=== PATIENT | male | born 1970 | race Caucasian/White ===

== ENCOUNTER 2016-07-18 05:35 | Day surgery (SDC) | payer OTHER, BC ==
[2016-07-18 06:07] VITALS: BMI 41.6
[2016-07-18 07:46] VITALS: PULSE 92; TEMP 98.2
[2016-07-18 08:08] VITALS: BP 130/79
[2016-07-18] MEDS ORDERED: ONDANSETRON 4 MG/2 ML VIAL IVPUSH PRN ×2 (08:38→10:04)
[2016-07-18] MEDS ORDERED: LACTATED RINGERS SOLUTION 1,000 ML IV SCH (09:00)
[2016-07-18] MEDS ORDERED: PROMETHAZINE HCL 25 MG/1 ML VIAL IVPUSH PRN (10:04)
== END 2016-07-18 08:05 | disposition home or self-care (01) ==
LOC: FECT 05:35
PROVIDERS: ATTEND Psychiatry & Neurology Psychiatry
PROC: GZB4ZZZ Other Electroconvulsive Therapy (ICD-10-PCS; principal; 2016-07-18 07:15)
DX: F31.62 Bipolar disorder, current episode mixed, moderate (principal)
CPT/HCPCS: 90870; 94760

== ENCOUNTER 2016-07-30 05:36 | Day surgery (SDC) | payer OTHER, BC ==
[2016-07-30 05:50] VITALS: BMI 41.1
[2016-07-30 07:42] VITALS: TEMP 98.1
[2016-07-30 08:03] VITALS: BP 117/74; PULSE 81
[2016-07-30] MEDS ORDERED: LACTATED RINGERS SOLUTION 1,000 ML IV SCH (08:15)
== END 2016-07-30 08:21 | disposition home or self-care (01) ==
LOC: FECT 05:36
PROVIDERS: ATTEND Psychiatry & Neurology Psychiatry
PROC: GZB4ZZZ Other Electroconvulsive Therapy (ICD-10-PCS; principal; 2016-07-30 07:30)
DX: F31.62 Bipolar disorder, current episode mixed, moderate (principal)
CPT/HCPCS: 90870; 94760

== ENCOUNTER 2016-08-13 05:36 | Day surgery (SDC) | payer OTHER, BC ==
--- NOTE | 2016-08-13 06:59 | HP ---
Admitting History and Physical - Admission History of Present Illness: patient is a 45 y/o male with a past medical history of MILI, HTN, and bipolar disorder. Patient presents for ECT, his last ECT was 07/30/16. Patient reports feeling well, reports an improvement in symptoms since starting ECT. He reports following portion control in his diet and has lost 4lbs. patient denies any recent illness or hospitalizations. He reports compliance with prescribed medication. History Source: Patient - Past Medical History Cardiovascular: Yes: HTN. No: AFIB, Aneurysm, Aortic Insufficiency, Aortic Stenosis, CAD, CHF, Deep Vein Thrombosis, Hyperlipdemia, [place], Mitral Insufficiency, Mitral Stenosis, Murmur, Pulmonary Hypertension, Other Pulmonary: Yes: Sleep Apnea, Other. No: Asthma, Bronchitis, Cancer, COPD, O2 Dependent, Pneumonia, Previously Intubated, Pulmonary Embolus, Pulmonary Fibrosis Psych: Yes: Bipolar, Depression. No: Addictions, Anxiety, Panic, Psychosis, Schizophrenia, Other - Smoking History Smoking history: Never smoked Have you smoked in the past 12 months: No - Alcohol/Substance Use Hx Alcohol Use: No History of Substance Use: reports: None - Social History ADL: Independent Occupation: [employer] History of Recent Travel: No Home Medications - Allergies Allergies/Adverse Reactions: Allergies Allergy/AdvReac Type Severity Reaction Status Date / Time No Known Allergies Allergy Verified 02/08/16 11:03 - Home Medications Home Medications: Ambulatory Orders Amlodipine Besylate [Norvasc -] 10 mg PO DAILY 11/16/12 Aspirin [ASA -] 81 mg PO HS 11/16/12 Labetalol HCl 200 mg PO BID 11/16/12 Cholecalciferol (Vitamin D3) [Vitamin D3] 4,000 unit PO DAILY 06/14/14 Quetiapine Fumarate "Xr" [Seroquel XR] 300 mg PO HS 03/21/15 Family Disease History - Family Disease History Family History: Unremarkable Review of Systems - Review of Systems Constitutional: reports: No Symptoms Eyes: reports: No Symptoms HENT: reports: No Symptoms Neck: reports: No Symptoms Cardiovascular: reports: No Symptoms Respiratory: reports: No Symptoms Gastrointestinal: reports: No Symptoms Genitourinary: reports: No Symptoms Breasts: reports: No Symptoms Reported Musculoskeletal: reports: No Symptoms Integumentary: reports: No Symptoms Neurological: reports: No Symptoms Endocrine: reports: No Symptoms Hematology/Lymphatic: reports: No Symptoms Psychiatric: reports: No Symptoms Physical Examination Constitutional: Yes: Well Nourished, No Distress, Calm Eyes: Yes: WNL, Conjunctiva Clear, EOM Intact HENT: Yes: WNL, Atraumatic, Normocephalic Neck: Yes: WNL, Supple, Trachea Midline Cardiovascular: Yes: WNL, Regular Rate and Rhythm, S1, S2 Respiratory: Yes: WNL, Regular, CTA Bilaterally Gastrointestinal: Yes: WNL, Normal Bowel Sounds, Soft ...Rectal Exam: Yes: Deferred Renal/: Yes: WNL Breast(s): Yes: WNL Musculoskeletal: Yes: WNL Extremities: Yes: WNL Edema: No Peripheral Pulses WNL: Yes Peripheral Pulses: Left Radial: 4+, Right Radial: 4+, Left Doralis Pedis: 3+, Right Dorsalis Pedis: 3+, Left Femoral: 3+, Right Femoral: 3+ Integumentary: Yes: WNL Neurological: Yes: WNL, Alert, Oriented ...Motor Strength: WNL Psychiatric: Yes: WNL, Alert, Oriented Labs: reviewed 03/29 Imaging - Results EKG: Image Reviewed, Other (nsr normal axis) Assessment/Plan pt is a 45 y/o, that presents for ECT, pt has received anesthesia in the past and denies any adverse reaction to anesthesia. labs and ekg reviewed. pt is low risk for ect informed consent and risks/benefits to be obtained by Dr Prather
[2016-08-13 07:04] VITALS: BMI 40.4
[2016-08-13 09:15] VITALS: TEMP 98.1
[2016-08-13 12:06] VITALS: BP 133/83; PULSE 88
== END 2016-08-13 09:15 | disposition home or self-care (01) ==
LOC: FECT 05:36
PROVIDERS: ATTEND Psychiatry & Neurology Psychiatry
PROC: GZB4ZZZ Other Electroconvulsive Therapy (ICD-10-PCS; principal; 2016-08-13 07:00)
DX: F31.62 Bipolar disorder, current episode mixed, moderate (principal)
CPT/HCPCS: 90870; 94760

== ENCOUNTER 2016-08-27 05:39 | Day surgery (SDC) | payer OTHER, BC ==
[2016-08-27 06:16] VITALS: TEMP 98.4; BMI 39.8
[2016-08-27] MEDS ORDERED: ONDANSETRON 4 MG/2 ML VIAL IVPUSH PRN (06:28)
[2016-08-27 08:26] VITALS: BP 148/90; PULSE 94
== END 2016-08-27 08:15 | disposition home or self-care (01) ==
LOC: FECT 05:39
PROVIDERS: ATTEND Psychiatry & Neurology Psychiatry
PROC: GZB4ZZZ Other Electroconvulsive Therapy (ICD-10-PCS; principal; 2016-08-27 07:15)
DX: F31.62 Bipolar disorder, current episode mixed, moderate (principal)
CPT/HCPCS: 90870; 94760

== ENCOUNTER 2016-09-10 05:38 | Day surgery (SDC) | payer OTHER, BC ==
[2016-09-10 06:42] VITALS: BMI 39.4
--- NOTE | 2016-09-10 07:00 | HP ---
Admitting History and Physical - Admission History of Present Illness: patient is a 45 y/o male with a past medical history of MILI, HTN, and bipolar disorder. Patient presents for ECT, his last ECT was 08/27. he reports feeling well, denies any changes any medications. He denies any recent hospitalizations or illnesses. he reports an improvement in depressive symptoms since starting ect. he denie any suicidal or homicidal ideation, visual or auditory hallucinations. - Past Medical History Cardiovascular: Yes: HTN. No: AFIB, Aneurysm, Aortic Insufficiency, Aortic Stenosis, CAD, CHF, Deep Vein Thrombosis, Hyperlipdemia, [place], Mitral Insufficiency, Mitral Stenosis, Murmur, Pulmonary Hypertension, Other Pulmonary: Yes: Sleep Apnea, Other. No: Asthma, Bronchitis, Cancer, COPD, O2 Dependent, Pneumonia, Previously Intubated, Pulmonary Embolus, Pulmonary Fibrosis Psych: Yes: Bipolar, Depression. No: Addictions, Anxiety, Panic, Psychosis, Schizophrenia, Other - Smoking History Smoking history: Never smoked Have you smoked in the past 12 months: No - Alcohol/Substance Use Hx Alcohol Use: No History of Substance Use: reports: None - Social History ADL: Independent Occupation: [employer] History of Recent Travel: No Home Medications - Allergies Allergies/Adverse Reactions: Allergies Allergy/AdvReac Type Severity Reaction Status Date / Time No Known Allergies Allergy Verified 02/08/16 11:03 - Home Medications Home Medications: Ambulatory Orders Amlodipine Besylate [Norvasc -] 10 mg PO DAILY 11/16/12 Aspirin [ASA -] 81 mg PO HS 11/16/12 Labetalol HCl 200 mg PO BID 11/16/12 Cholecalciferol (Vitamin D3) [Vitamin D3] 4,000 unit PO DAILY 06/14/14 Quetiapine Fumarate "Xr" [Seroquel XR] 300 mg PO HS 03/21/15 Family Disease History - Family Disease History Family History: Unremarkable Review of Systems - Review of Systems Constitutional: reports: No Symptoms Eyes: reports: No Symptoms HENT: reports: No Symptoms Neck: reports: No Symptoms Cardiovascular: reports: No Symptoms Respiratory: reports: No Symptoms Gastrointestinal: reports: No Symptoms Genitourinary: reports: No Symptoms Musculoskeletal: reports: No Symptoms Integumentary: reports: No Symptoms Neurological: reports: No Symptoms Endocrine: reports: No Symptoms Hematology/Lymphatic: reports: No Symptoms Psychiatric: reports: No Symptoms Physical Examination Vital Signs: Vital Signs Temperature 98.2 F 09/10/16 06:32 Pulse Rate 92 H 09/10/16 06:32 Respiratory Rate 18 09/10/16 06:32 Blood Pressure 143/84 09/10/16 06:32 O2 Sat by Pulse Oximetry (%) 98 09/10/16 06:32 Constitutional: Yes: Well Nourished, No Distress, Calm Eyes: Yes: WNL, Conjunctiva Clear, EOM Intact HENT: Yes: WNL, Atraumatic, Normocephalic Neck: Yes: WNL, Supple, Trachea Midline Cardiovascular: Yes: WNL, Regular Rate and Rhythm Respiratory: Yes: WNL, Regular, CTA Bilaterally Gastrointestinal: Yes: WNL, Normal Bowel Sounds, Soft ...Rectal Exam: Yes: Deferred Renal/: Yes: WNL Musculoskeletal: Yes: WNL Extremities: Yes: WNL Edema: No Peripheral Pulses WNL: Yes Peripheral Pulses: Left Radial: 4+, Right Radial: 4+, Left Doralis Pedis: 3+, Right Dorsalis Pedis: 3+, Left Femoral: 3+, Right Femoral: 3+ Integumentary: Yes: WNL Neurological: Yes: WNL, Alert, Oriented ...Motor Strength: WNL Psychiatric: Yes: WNL, Alert, Oriented Labs: reviewed 03/29 Imaging - Results EKG: Image Reviewed, Other (nsr no ischemic changes) Assessment/Plan pt is a 45 y/o male that presents for ect, he has received ect in the past and denies any adverse reaction to anesthesia. labs and ekg reviewed pt is low risk for ect informed consent, risks/benefits to be obtained by Dr Prather
[2016-09-10] MEDS ORDERED: LACTATED RINGERS SOLUTION 1,000 ML IV SCH (08:30)
[2016-09-10] MEDS ORDERED: ONDANSETRON 4 MG/2 ML VIAL IVPUSH PRN (08:44)
[2016-09-10 08:58] VITALS: TEMP 98.3
[2016-09-10 09:00] VITALS: BP 149/80; PULSE 88
== END 2016-09-10 09:00 | disposition home or self-care (01) ==
LOC: FECT 05:38
PROVIDERS: ATTEND Psychiatry & Neurology Psychiatry
PROC: GZB4ZZZ Other Electroconvulsive Therapy (ICD-10-PCS; principal; 2016-09-10 07:15)
DX: F31.62 Bipolar disorder, current episode mixed, moderate (principal)
CPT/HCPCS: 90870; 94760

== ENCOUNTER 2016-10-08 05:37 | Day surgery (SDC) | payer OTHER ==
--- NOTE | 2016-10-08 07:12 | HP ---
Admitting History and Physical - Admission History of Present Illness: patient is a 45y/o male with a past medical history of htn, gely, and bipolar disorder. patient presents for ect, his last ect was 09/23/16. patient reports recent stress of job layoff. patient does feel optimisitic in obtaining another position. patient denies any recent medication changes, illness or hospitalizations. History Source: Patient Limitations to Obtaining History: No Limitations - Past Medical History Cardiovascular: Yes: HTN. No: AFIB, Aneurysm, Aortic Insufficiency, Aortic Stenosis, CAD, CHF, Deep Vein Thrombosis, Hyperlipdemia, [place], Mitral Insufficiency, Mitral Stenosis, Murmur, Pulmonary Hypertension, Other Pulmonary: Yes: Sleep Apnea, Other. No: Asthma, Bronchitis, Cancer, COPD, O2 Dependent, Pneumonia, Previously Intubated, Pulmonary Embolus, Pulmonary Fibrosis Psych: Yes: Bipolar, Depression. No: Addictions, Anxiety, Panic, Psychosis, Schizophrenia, Other - Smoking History Smoking history: Never smoked Have you smoked in the past 12 months: No - Alcohol/Substance Use Hx Alcohol Use: No History of Substance Use: reports: None - Social History ADL: Independent Occupation: [employer] History of Recent Travel: No Home Medications - Allergies Allergies/Adverse Reactions: Allergies Allergy/AdvReac Type Severity Reaction Status Date / Time No Known Allergies Allergy Verified 09/23/16 06:36 - Home Medications Home Medications: Ambulatory Orders Amlodipine Besylate [Norvasc -] 10 mg PO DAILY 11/16/12 Aspirin [ASA -] 81 mg PO HS 11/16/12 Labetalol HCl 200 mg PO BID 11/16/12 Cholecalciferol (Vitamin D3) [Vitamin D3] 4,000 unit PO DAILY 06/14/14 Quetiapine Fumarate "Xr" [Seroquel XR] 300 mg PO HS 03/21/15 Family Disease History - Family Disease History Family History: Unremarkable Review of Systems - Review of Systems Constitutional: reports: No Symptoms Eyes: reports: No Symptoms HENT: reports: No Symptoms Neck: reports: No Symptoms Cardiovascular: reports: No Symptoms Respiratory: reports: No Symptoms Gastrointestinal: reports: No Symptoms Genitourinary: reports: No Symptoms Musculoskeletal: reports: No Symptoms Integumentary: reports: No Symptoms Neurological: reports: No Symptoms Endocrine: reports: No Symptoms Hematology/Lymphatic: reports: No Symptoms Psychiatric: reports: No Symptoms Physical Examination Constitutional: Yes: Well Nourished, No Distress, Calm Eyes: Yes: WNL, Conjunctiva Clear, EOM Intact HENT: Yes: WNL, Atraumatic, Normocephalic Neck: Yes: WNL, Supple, Trachea Midline Cardiovascular: Yes: WNL, Regular Rate and Rhythm, S1, S2 Respiratory: Yes: WNL, Regular, CTA Bilaterally Gastrointestinal: Yes: WNL, Normal Bowel Sounds, Soft ...Rectal Exam: Yes: Deferred Renal/: Yes: WNL Breast(s): Yes: WNL Musculoskeletal: Yes: WNL Extremities: Yes: WNL Edema: No Peripheral Pulses WNL: Yes Peripheral Pulses: Left Radial: 4+, Right Radial: 4+, Left Doralis Pedis: 3+, Right Dorsalis Pedis: 3+, Left Femoral: 3+, Right Femoral: 3+ Integumentary: Yes: WNL Neurological: Yes: WNL, Alert, Oriented ...Motor Strength: WNL Psychiatric: Yes: WNL, Alert, Oriented Labs: reviewed 03/29 Imaging - Results EKG: Report Reviewed, Image Reviewed, Other (nsr no ischemic changes) Assessment/Plan pt is a 45 y/o male that presents for ect, he has received ect in the past and denies any adverse reaction to anesthesia. labs and ekg reviewed pt is low risk for procedure informed consent, risks/benefits to be obtained by Dr Prather
[2016-10-08 07:18] VITALS: TEMP 98.5; BMI 39.2
[2016-10-08 07:19] LABS: BASOPHIL 0.7 % (0-2.0); EOSINOPHIL 1.6 % (0-4.5); MCHC 34.8 g/dl (32.0-35.9); MEAN CELL VOLUME 86.1 fl (80-96); MEAN PLT VOLUME 8.9 fl (7.5-11.1); NEUTROPHILS 72.9 % (42.8-82.8); PLATELET COUNT 209 K/MM3 (134-434); RDW 13.2 % (11.9-15.9); WHITE BLOOD COUNT 7.8 K/mm3 (4.0-10.0)
[2016-10-08] MEDS ORDERED: LACTATED RINGERS SOLUTION 1,000 ML IV SCH (07:30)
[2016-10-08 08:14] LABS: ALBUMIN 4.1 g/dl (3.4-5.0); ALK PHOS 109 U/L (45-117); ANION GAP 10 (8-16); BILIRUBIN,TOTAL 0.9 mg/dL (0.2-1.0); CALCIUM 9.4 mg/dL (8.5-10.1); CO2 30 mmol/L (21-32); CREATININE 1.2 mg/dL (0.7-1.3); GLUCOSE,RANDOM 109 mg/dL (74-106); SGOT/AST 9 U/L (15-37); SGPT/ALT 25 U/L (12-78)
[2016-10-08 09:26] VITALS: BP 121/71; PULSE 84
--- NOTE | 2016-10-08 13:39 | EKG ---
Test Reason : Blood Pressure : / mmHG Vent. Rate : 084 BPM Atrial Rate : 084 BPM P-R Int : 204 ms QRS Dur : 100 ms QT Int : 368 ms P-R-T Axes : 056 018 025 degrees QTc Int : 434 ms NORMAL SINUS RHYTHM NORMAL ECG NO PREVIOUS ECGS AVAILABLE Confirmed by PARESH ROOT MD ([id number]) on 10/08/2016 1:39:30 PM Referred By: Murphy Prather Confirmed By:PARESH ROOT MD
== END 2016-10-08 09:10 | disposition home or self-care (01) ==
LOC: FECT 05:37
PROVIDERS: ATTEND Psychiatry & Neurology Psychiatry
PROC: GZB4ZZZ Other Electroconvulsive Therapy (ICD-10-PCS; principal; 2016-10-08 07:00)
DX: F31.32 Bipolar disorder, current episode depressed, moderate (principal)
CPT/HCPCS: 36415; 80053; 85025; 90870; 93005; 94760

== ENCOUNTER 2016-10-29 05:33 | Day surgery (SDC) | payer OTHER ==
[2016-10-29 06:06] VITALS: TEMP 98.2; BMI 40.2
[2016-10-29 08:17] VITALS: BP 130/68; PULSE 83
[2016-10-29] MEDS ORDERED: ONDANSETRON 4 MG/2 ML VIAL IVPUSH PRN (08:31)
[2016-10-29] MEDS ORDERED: LACTATED RINGERS SOLUTION 1,000 ML IV SCH (08:45)
== END 2016-10-29 08:15 | disposition home or self-care (01) ==
LOC: FECT 05:33
PROVIDERS: ATTEND Psychiatry & Neurology Psychiatry
PROC: GZB4ZZZ Other Electroconvulsive Therapy (ICD-10-PCS; principal; 2016-10-29 07:15)
DX: F31.32 Bipolar disorder, current episode depressed, moderate (principal)
CPT/HCPCS: 90870; 94760

== ENCOUNTER 2016-11-12 05:35 | Day surgery (SDC) | payer OTHER ==
[2016-11-12 06:14] VITALS: BMI 40.4
--- NOTE | 2016-11-12 06:54 | HP ---
Admitting History and Physical - Admission History of Present Illness: patient is a 45 y/o obese male with a past medical history of gely, htn, and bipolar disorder. patient presents for ECT, his last ECT was 10/29/16. He reports feeling increasingly stressed due to his recent job loss and identity theft. Patient reports compliance with prescribed medication. patient denies any chest pain or shortness of breath or headaches. He denies any recent illness or hospitalizations. History Source: Patient Limitations to Obtaining History: No Limitations - Past Medical History Cardiovascular: Yes: HTN. No: AFIB, Aneurysm, Aortic Insufficiency, Aortic Stenosis, CAD, CHF, Deep Vein Thrombosis, Hyperlipdemia, [place], Mitral Insufficiency, Mitral Stenosis, Murmur, Pulmonary Hypertension, Other Pulmonary: Yes: Sleep Apnea, Other. No: Asthma, Bronchitis, Cancer, COPD, O2 Dependent, Pneumonia, Previously Intubated, Pulmonary Embolus, Pulmonary Fibrosis Psych: Yes: Bipolar, Depression. No: Addictions, Anxiety, Panic, Psychosis, Schizophrenia, Other - Past Surgical History Past Surgical History: Yes: None - Smoking History Smoking history: Never smoked Have you smoked in the past 12 months: No - Alcohol/Substance Use Hx Alcohol Use: No History of Substance Use: reports: None - Social History Usual Living Arrangement: Yes: With Parent ADL: Independent Occupation: [employer] History of Recent Travel: No Home Medications - Allergies Allergies/Adverse Reactions: Allergies Allergy/AdvReac Type Severity Reaction Status Date / Time No Known Allergies Allergy Verified 09/23/16 06:36 - Home Medications Home Medications: Ambulatory Orders Amlodipine Besylate [Norvasc -] 10 mg PO DAILY 11/16/12 Aspirin [ASA -] 81 mg PO HS 11/16/12 Labetalol HCl 200 mg PO BID 11/16/12 Cholecalciferol (Vitamin D3) [Vitamin D3] 4,000 unit PO DAILY 06/14/14 Quetiapine Fumarate "Xr" [Seroquel XR] 300 mg PO HS 03/21/15 Family Disease History - Family Disease History Family History: Unremarkable Review of Systems - Review of Systems Constitutional: reports: No Symptoms Eyes: reports: No Symptoms HENT: reports: No Symptoms Neck: reports: No Symptoms Cardiovascular: reports: No Symptoms Respiratory: reports: No Symptoms Gastrointestinal: reports: No Symptoms Genitourinary: reports: No Symptoms Musculoskeletal: reports: No Symptoms Integumentary: reports: No Symptoms Neurological: reports: No Symptoms Endocrine: reports: No Symptoms Hematology/Lymphatic: reports: No Symptoms Psychiatric: reports: Other (increasing stress) Physical Examination Vital Signs: Vital Signs Temperature 98.4 F 11/12/16 06:09 Pulse Rate 88 11/12/16 06:09 Respiratory Rate 18 11/12/16 06:09 Blood Pressure 125/100 11/12/16 06:09 O2 Sat by Pulse Oximetry (%) 97 11/12/16 06:09 Constitutional: Yes: Well Nourished, No Distress, Calm, Obese Eyes: Yes: WNL, Conjunctiva Clear, EOM Intact HENT: Yes: WNL, Atraumatic, Normocephalic Neck: Yes: WNL, Supple, Trachea Midline Cardiovascular: Yes: WNL, Regular Rate and Rhythm, S1, S2 Respiratory: Yes: WNL, Regular, CTA Bilaterally Gastrointestinal: Yes: WNL, Normal Bowel Sounds, Soft, Abdomen, Obese ...Rectal Exam: Yes: Deferred Renal/: Yes: WNL Musculoskeletal: Yes: WNL Extremities: Yes: WNL Edema: No Peripheral Pulses WNL: Yes Peripheral Pulses: Left Radial: 4+, Right Radial: 4+, Left Doralis Pedis: 3+, Right Dorsalis Pedis: 3+, Left Femoral: 3+, Right Femoral: 3+ Integumentary: Yes: WNL Neurological: Yes: WNL, Alert, Oriented ...Motor Strength: WNL Psychiatric: Yes: WNL, Alert, Oriented Labs: Laboratory Tests 10/08/16 06:25 WBC 7.8 RBC 5.21 Hgb 15.6 Hct 44.9 MCV 86.1 MCHC 34.8 RDW 13.2 Plt Count 209 MPV 8.9 Neutrophils % 72.9 Lymphocytes % 18.2 Monocytes % 6.6 Eosinophils % 1.6 Basophils % 0.7 Laboratory Tests 10/08/16 06:25 Sodium 142 Potassium 4.0 Chloride 102 Carbon Dioxide 30 Anion Gap 10 BUN 14 Creatinine 1.2 Creat Clearance w eGFR > 60 Random Glucose 109 H Calcium 9.4 Total Bilirubin 0.9 AST 9 L ALT 25 Alkaline Phosphatase 109 Total Protein 7.0 Albumin 4.1 Imaging - Results EKG: Image Reviewed, Other (nsr no ischemic changes) Assessment/Plan pt has 45 y/o male that presents for ECT, pt had ect in the past and denies any adverse reaction to anesthesia labs and ekg reviewed pt is low risk for procedure informed consent, risks/benefits to be obtained by Dr Prather
[2016-11-12 08:25] VITALS: TEMP 97.5
[2016-11-12 08:26] VITALS: BP 129/89; PULSE 91
== END 2016-11-12 08:48 | disposition home or self-care (01) ==
LOC: FECT 05:35
PROVIDERS: ATTEND Psychiatry & Neurology Psychiatry
PROC: GZB4ZZZ Other Electroconvulsive Therapy (ICD-10-PCS; principal; 2016-11-12 07:15)
DX: F31.62 Bipolar disorder, current episode mixed, moderate (principal)
CPT/HCPCS: 90870; 94760

== ENCOUNTER 2016-11-26 05:34 | Day surgery (SDC) | payer OTHER ==
[2016-11-26 06:04] VITALS: BMI 41.4
[2016-11-26 08:16] VITALS: BP 126/85; PULSE 98; TEMP 98.4
== END 2016-11-26 08:10 | disposition home or self-care (01) ==
LOC: FECT 05:34
PROVIDERS: ATTEND Psychiatry & Neurology Psychiatry
PROC: GZB4ZZZ Other Electroconvulsive Therapy (ICD-10-PCS; principal; 2016-11-26 07:45)
DX: F31.32 Bipolar disorder, current episode depressed, moderate (principal)
CPT/HCPCS: 90870; 94760

== ENCOUNTER → 2016-12-10 | Day surgery (SDC) | payer OTHER ==
[~2016-12-10] MED LIST: IBUPROFEN 600 MG TABLET (FP) PO ONE
[2016-12-10 06:01] VITALS: TEMP 98; BMI 41.3
--- NOTE | 2016-12-10 09:27 | PN ---
Progress Note (short form) - Note Progress Note: 45 year old male s/p ECT. Patient received a dose of zofran & toradol shortly before heading up to [facility]. Patient was awake talking, and maintaining airway. While moving into the room. Patient felt weak and had a brief respiratory arrest. Pt was quickly ventilated with an AMBU bag. He quickly began to have spontaneous breaths. Then awoke, with no deficits. 130/101 97 on FM, hr 101 rr 10 A&P Likely there was residual sedation in the IV line. This would account for the brief respiratory event, followed by immediate recovery by patient. Patient is now sitting up in bed complaining of only a minor headache which is not uncommon for him after ECT. Will d/c patient home. Patient going home with Father, they will immediately return to ER if there are any other problems. Ibuprofen for headache patient and father aware and agree with plan
[2016-12-10 09:30] VITALS: BP 144/89; PULSE 88
--- NOTE | 2016-12-10 18:08 | PN ---
Progress Note (short form) - Note Progress Note: Phone follow up Called patients, says he feeling fine. No residual effects. Said that he slept a lot during the day which normal for him post procedure. No headache. No problems with breathing. No SOB or CP Reassured patient and will follow up in two weeks when he returns for next treatment
== END | disposition home or self-care (01) ==
LOC: FECT 05:37
PROVIDERS: ATTEND Psychiatry & Neurology Psychiatry
PROC: GZB4ZZZ Other Electroconvulsive Therapy (ICD-10-PCS; principal; 2016-12-10 07:00)
DX: F31.32 Bipolar disorder, current episode depressed, moderate (principal)
CPT/HCPCS: 90870; 94760

== ENCOUNTER 2016-12-24 05:37 | Day surgery (SDC) | payer OTHER ==
[2016-12-24 06:37] VITALS: TEMP 97.9; BMI 41.4
--- NOTE | 2016-12-24 07:01 | HP ---
Admitting History and Physical - Admission History of Present Illness: patient is a 46 y/o obese male with a past medical history of MILI (CPAP), htn, and bipolar disorder. patient presents for ect, his last ect was 12/10/16. He reports feeling well, does report ongoing stress from his job search. patient denies any hospitalizations or illnesses. he reports compliance with prescribed medications. patient reports an improvement in manic symptoms since starting ect. Patient denies any suicidal or homicidal ideation, visual or auditory hallucination. History Source: Patient Limitations to Obtaining History: No Limitations - Past Medical History Cardiovascular: Yes: HTN. No: AFIB, Aneurysm, Aortic Insufficiency, Aortic Stenosis, CAD, CHF, Deep Vein Thrombosis, Hyperlipdemia, [place], Mitral Insufficiency, Mitral Stenosis, Murmur, Pulmonary Hypertension, Other Pulmonary: Yes: Sleep Apnea, Other. No: Asthma, Bronchitis, Cancer, COPD, O2 Dependent, Pneumonia, Previously Intubated, Pulmonary Embolus, Pulmonary Fibrosis Psych: Yes: Bipolar, Depression. No: Addictions, Anxiety, Panic, Psychosis, Schizophrenia, Other - Past Surgical History Past Surgical History: Yes: None - Smoking History Smoking history: Never smoked Have you smoked in the past 12 months: No - Alcohol/Substance Use Hx Alcohol Use: No History of Substance Use: reports: None - Social History ADL: Independent Occupation: [employer] History of Recent Travel: No Home Medications - Allergies Allergies/Adverse Reactions: Allergies Allergy/AdvReac Type Severity Reaction Status Date / Time No Known Allergies Allergy Verified 09/23/16 06:36 - Home Medications Home Medications: Ambulatory Orders Amlodipine Besylate [Norvasc -] 10 mg PO DAILY 11/16/12 Aspirin [ASA -] 81 mg PO HS 11/16/12 Labetalol HCl 200 mg PO BID 11/16/12 Cholecalciferol (Vitamin D3) [Vitamin D3] 4,000 unit PO DAILY 06/14/14 Quetiapine Fumarate "Xr" [Seroquel XR] 300 mg PO HS 03/21/15 Family Disease History - Family Disease History Family History: Unremarkable Review of Systems - Review of Systems Constitutional: reports: No Symptoms Eyes: reports: No Symptoms HENT: reports: No Symptoms Neck: reports: No Symptoms Cardiovascular: reports: No Symptoms Respiratory: reports: No Symptoms Gastrointestinal: reports: No Symptoms Genitourinary: reports: No Symptoms Breasts: reports: No Symptoms Reported Musculoskeletal: reports: No Symptoms Integumentary: reports: No Symptoms Neurological: reports: No Symptoms Endocrine: reports: No Symptoms Hematology/Lymphatic: reports: No Symptoms Psychiatric: reports: No Symptoms Physical Examination Vital Signs: Vital Signs Temperature 97.9 F 12/24/16 06:35 Pulse Rate 96 H 12/24/16 06:35 Respiratory Rate 20 12/24/16 06:35 Blood Pressure 112/90 12/24/16 06:35 O2 Sat by Pulse Oximetry (%) 100 12/24/16 06:35 Constitutional: Yes: Well Nourished, No Distress, Calm, Obese Eyes: Yes: WNL, Conjunctiva Clear, EOM Intact HENT: Yes: WNL, Atraumatic, Normocephalic Neck: Yes: WNL, Supple, Trachea Midline Cardiovascular: Yes: WNL, Regular Rate and Rhythm, S1, S2 Respiratory: Yes: WNL, Regular, CTA Bilaterally Gastrointestinal: Yes: WNL, Normal Bowel Sounds, Soft ...Rectal Exam: Yes: Deferred Renal/: Yes: WNL Musculoskeletal: Yes: WNL Extremities: Yes: WNL Edema: No Peripheral Pulses WNL: Yes Peripheral Pulses: Left Radial: 4+, Right Radial: 4+, Left Doralis Pedis: 3+, Right Dorsalis Pedis: 3+, Left Femoral: 3+, Right Femoral: 3+ Integumentary: Yes: WNL Neurological: Yes: WNL, Alert, Oriented ...Motor Strength: WNL Psychiatric: Yes: WNL, Alert, Oriented Labs: reviewed 09/27 Imaging - Results EKG: Image Reviewed, Other (nsr no ischemic changes) Assessment/Plan pt is a 46 y/o male that presents for ect,labs and ekg reviewed pt is low risk for procedure informed consent, risk/benefits to be obtained by Dr Prather
[2016-12-24 10:17] VITALS: BP 116/68; PULSE 82
== END 2016-12-24 09:30 | disposition home or self-care (01) ==
LOC: FECT 05:37
PROVIDERS: ATTEND Psychiatry & Neurology Psychiatry
PROC: GZB4ZZZ Other Electroconvulsive Therapy (ICD-10-PCS; principal; 2016-12-24 07:15)
DX: F31.32 Bipolar disorder, current episode depressed, moderate (principal)
CPT/HCPCS: 90870; 94760

== ENCOUNTER 2017-01-07 05:38 | Day surgery (SDC) | payer OTHER ==
[2017-01-07 06:03] VITALS: TEMP 97.8; BMI 41.3
[2017-01-07 08:03] VITALS: BP 136/84; PULSE 87
== END 2017-01-07 08:15 | disposition home or self-care (01) ==
LOC: FECT 05:38
PROVIDERS: ATTEND Psychiatry & Neurology Psychiatry
PROC: GZB4ZZZ Other Electroconvulsive Therapy (ICD-10-PCS; principal; 2017-01-07 07:30)
DX: F31.32 Bipolar disorder, current episode depressed, moderate (principal)
CPT/HCPCS: 90870; 94760

== ENCOUNTER 2017-01-21 05:35 | Day surgery (SDC) | payer OTHER ==
[2017-01-21 06:12] VITALS: TEMP 98.8; BMI 41.3
[2017-01-21 08:28] VITALS: BP 108/68; PULSE 80
== END 2017-01-21 08:30 | disposition home or self-care (01) ==
LOC: FECT 05:35
PROVIDERS: ATTEND Psychiatry & Neurology Psychiatry
PROC: GZB4ZZZ Other Electroconvulsive Therapy (ICD-10-PCS; principal; 2017-01-21 07:15)
DX: F31.32 Bipolar disorder, current episode depressed, moderate (principal)
CPT/HCPCS: 90870; 94760

== ENCOUNTER 2017-02-04 05:37 | Day surgery (SDC) | payer OTHER ==
[2017-02-04 05:56] VITALS: BMI 41.3
--- NOTE | 2017-02-04 06:59 | HP ---
Admitting History and Physical - Admission History of Present Illness: patient is a 46 y/o morbidly obese male with a past medical history of MILI ( BIPAP) , htn, and bipolar disorder. Patient presents for ect, his last ect . He reports feeling well and reports an improvement in depressive symptoms since starting ect. He reports compliance with prescribed medications. Patient denies any recent illnesses or hospitalizations. He reports walking 45 minutes a day and denies any dypnea upon exertion. History Source: Patient Limitations to Obtaining History: No Limitations - Past Medical History Cardiovascular: Yes: HTN. No: AFIB, Aneurysm, Aortic Insufficiency, Aortic Stenosis, CAD, CHF, Deep Vein Thrombosis, Hyperlipdemia, [place], Mitral Insufficiency, Mitral Stenosis, Murmur, Pulmonary Hypertension, Other Pulmonary: Yes: Sleep Apnea, Other. No: Asthma, Bronchitis, Cancer, COPD, O2 Dependent, Pneumonia, Previously Intubated, Pulmonary Embolus, Pulmonary Fibrosis Psych: Yes: Bipolar, Depression. No: Addictions, Anxiety, Panic, Psychosis, Schizophrenia, Other - Past Surgical History Past Surgical History: Yes: None - Smoking History Smoking history: Never smoked Have you smoked in the past 12 months: No - Alcohol/Substance Use Hx Alcohol Use: No History of Substance Use: reports: None - Social History ADL: Independent Occupation: [employer] History of Recent Travel: No Home Medications - Allergies Allergies/Adverse Reactions: Allergies Allergy/AdvReac Type Severity Reaction Status Date / Time No Known Allergies Allergy Verified 09/23/16 06:36 - Home Medications Home Medications: Ambulatory Orders Amlodipine Besylate [Norvasc -] 10 mg PO DAILY 11/16/12 Aspirin [ASA -] 81 mg PO HS 11/16/12 Labetalol HCl 200 mg PO BID 11/16/12 Cholecalciferol (Vitamin D3) [Vitamin D3] 4,000 unit PO DAILY 06/14/14 Quetiapine Fumarate "Xr" [Seroquel XR] 300 mg PO HS 03/21/15 Family Disease History - Family Disease History Family History: Unremarkable Review of Systems - Review of Systems Constitutional: reports: No Symptoms Eyes: reports: No Symptoms HENT: reports: No Symptoms Neck: reports: No Symptoms Cardiovascular: reports: No Symptoms Respiratory: reports: No Symptoms Gastrointestinal: reports: No Symptoms Genitourinary: reports: No Symptoms Musculoskeletal: reports: No Symptoms Integumentary: reports: No Symptoms Neurological: reports: No Symptoms Endocrine: reports: No Symptoms Hematology/Lymphatic: reports: No Symptoms Psychiatric: reports: No Symptoms Physical Examination Vital Signs: Vital Signs Temperature 98.2 F 02/04/17 05:50 Pulse Rate 90 02/04/17 05:50 Respiratory Rate 18 02/04/17 05:50 Blood Pressure 118/98 02/04/17 05:50 O2 Sat by Pulse Oximetry (%) 96 02/04/17 05:50 Constitutional: Yes: Well Nourished, No Distress, Calm Eyes: Yes: WNL, Conjunctiva Clear, EOM Intact HENT: Yes: WNL, Atraumatic, Normocephalic Neck: Yes: WNL, Supple, Trachea Midline Cardiovascular: Yes: WNL, Regular Rate and Rhythm, S1, S2 Respiratory: Yes: WNL, Regular, CTA Bilaterally Gastrointestinal: Yes: WNL, Normal Bowel Sounds, Soft ...Rectal Exam: Yes: Deferred Renal/: Yes: WNL Musculoskeletal: Yes: WNL Extremities: Yes: WNL Edema: No Peripheral Pulses WNL: Yes Peripheral Pulses: Left Radial: 4+, Right Radial: 4+, Left Doralis Pedis: 3+, Right Dorsalis Pedis: 3+, Left Femoral: 3+, Right Femoral: 3+ Integumentary: Yes: WNL Neurological: Yes: WNL, Alert, Oriented ...Motor Strength: WNL Psychiatric: Yes: WNL, Alert, Oriented Labs: reviewed 09/27 Imaging - Results EKG: Image Reviewed, Other (nsr no ischemic changes) Assessment/Plan pt is a 46 y/o male that presents for ect, labs and ekg reviewed pt is low risk for procedure informed consent, risks/benefits to be obtained by Dr Prather
[2017-02-04] MEDS ORDERED: LACTATED RINGERS SOLUTION 1,000 ML IV SCH (08:15)
[2017-02-04 09:26] VITALS: BP 125/80; PULSE 85; TEMP 98
== END 2017-02-04 09:05 | disposition home or self-care (01) ==
LOC: FECT 05:37
PROVIDERS: ATTEND Psychiatry & Neurology Psychiatry
PROC: GZB4ZZZ Other Electroconvulsive Therapy (ICD-10-PCS; principal; 2017-02-04 07:00)
DX: F31.32 Bipolar disorder, current episode depressed, moderate (principal)
CPT/HCPCS: 90870; 94760

== ENCOUNTER 2017-02-18 05:39 | Day surgery (SDC) | payer OTHER ==
[2017-02-18 06:12] VITALS: TEMP 98.2
[2017-02-18 06:26] VITALS: BMI 41.1
[2017-02-18 08:27] VITALS: BP 124/84; PULSE 82
== END 2017-02-18 08:30 | disposition home or self-care (01) ==
LOC: FECT 05:39
PROVIDERS: ATTEND Psychiatry & Neurology Psychiatry
PROC: GZB4ZZZ Other Electroconvulsive Therapy (ICD-10-PCS; principal; 2017-02-18 07:30)
DX: F31.32 Bipolar disorder, current episode depressed, moderate (principal)
CPT/HCPCS: 90870; 94760

== ENCOUNTER 2017-03-04 05:41 | Day surgery (SDC) | payer OTHER ==
[2017-03-04 06:15] VITALS: BMI 40.3
[2017-03-04 07:40] VITALS: PULSE 82
[2017-03-04 08:08] VITALS: BP 125/81; TEMP 98.1
== END 2017-03-04 08:25 | disposition home or self-care (01) ==
LOC: FECT 05:41
PROVIDERS: ATTEND Psychiatry & Neurology Psychiatry
PROC: GZB4ZZZ Other Electroconvulsive Therapy (ICD-10-PCS; principal; 2017-03-04 07:15)
DX: F31.32 Bipolar disorder, current episode depressed, moderate (principal)
CPT/HCPCS: 90870; 94760

== ENCOUNTER 2017-03-18 05:37 | Day surgery (SDC) | payer OTHER ==
--- NOTE | 2017-03-18 06:59 | HP ---
Admitting History and Physical - Admission History of Present Illness: patient is s 46 y/o male with a past medical history of gely (bipap), htn, and bipolar disorder. Patient presents for ect, his last ect was 03/04/17. He reports feeling well and has been recently counting his calories in effort to loose weight. Patient denies any recent changes in his medication. He denies any suicidal or homicidal ideation, visual or auditory hallucinations. He denies any recent illnesses or hospitalizations. History Source: Patient Limitations to Obtaining History: No Limitations - Past Medical History Cardiovascular: Yes: HTN. No: AFIB, Aneurysm, Aortic Insufficiency, Aortic Stenosis, CAD, CHF, Deep Vein Thrombosis, Hyperlipdemia, [place], Mitral Insufficiency, Mitral Stenosis, Murmur, Pulmonary Hypertension, Other Pulmonary: Yes: Sleep Apnea, Other. No: Asthma, Bronchitis, Cancer, COPD, O2 Dependent, Pneumonia, Previously Intubated, Pulmonary Embolus, Pulmonary Fibrosis Psych: Yes: Bipolar, Depression. No: Addictions, Anxiety, Panic, Psychosis, Schizophrenia, Other - Past Surgical History Past Surgical History: Yes: None - Smoking History Smoking history: Never smoked Have you smoked in the past 12 months: No - Alcohol/Substance Use Hx Alcohol Use: No History of Substance Use: reports: None - Social History Usual Living Arrangement: Yes: With Parent ADL: Independent Occupation: [employer] History of Recent Travel: No Home Medications - Allergies Allergies/Adverse Reactions: Allergies Allergy/AdvReac Type Severity Reaction Status Date / Time No Known Allergies Allergy Verified 03/05/17 16:15 - Home Medications Home Medications: Ambulatory Orders Amlodipine Besylate [Norvasc -] 10 mg PO DAILY 11/16/12 Aspirin [ASA -] 81 mg PO HS 11/16/12 Labetalol HCl 200 mg PO BID 11/16/12 Cholecalciferol (Vitamin D3) [Vitamin D3] 4,000 unit PO DAILY 06/14/14 Quetiapine Fumarate "Xr" [Seroquel XR] 300 mg PO HS 03/21/15 Family Disease History - Family Disease History Family History: Unremarkable Review of Systems - Review of Systems Constitutional: reports: No Symptoms Eyes: reports: No Symptoms HENT: reports: No Symptoms Neck: reports: No Symptoms Cardiovascular: reports: No Symptoms Respiratory: reports: No Symptoms Gastrointestinal: reports: No Symptoms Genitourinary: reports: No Symptoms Musculoskeletal: reports: No Symptoms Integumentary: reports: No Symptoms Neurological: reports: No Symptoms Endocrine: reports: No Symptoms Hematology/Lymphatic: reports: No Symptoms Psychiatric: reports: No Symptoms Physical Examination Constitutional: Yes: Well Nourished, No Distress, Calm, Obese Eyes: Yes: WNL, Conjunctiva Clear, EOM Intact HENT: Yes: WNL, Atraumatic, Normocephalic Neck: Yes: WNL, Supple, Trachea Midline Cardiovascular: Yes: WNL, Regular Rate and Rhythm Respiratory: Yes: WNL, Regular, CTA Bilaterally Gastrointestinal: Yes: WNL, Normal Bowel Sounds, Soft ...Rectal Exam: Yes: Deferred Renal/: Yes: WNL Breast(s): Yes: WNL Musculoskeletal: Yes: WNL Extremities: Yes: WNL Edema: No Peripheral Pulses WNL: Yes Integumentary: Yes: WNL Neurological: Yes: WNL, Alert, Oriented ...Motor Strength: WNL Psychiatric: Yes: WNL, Alert, Oriented Labs: reviewed 09/27 Imaging - Results EKG: Other (nsr no ischemic changes) Assessment/Plan pt is a 46 y/o that presents for ect, labs and ekg reviewed pt is medically optimized for procedure
[2017-03-18 07:01] VITALS: BMI 39.5
[2017-03-18 08:50] VITALS: TEMP 98.4
[2017-03-18] MEDS ORDERED: LACTATED RINGERS SOLUTION 1,000 ML IV SCH (09:00)
[2017-03-18] MEDS ORDERED: ONDANSETRON 4 MG/2 ML VIAL IVPUSH PRN (09:00)
[2017-03-18 09:14] VITALS: BP 114/77; PULSE 82
== END 2017-03-18 09:10 | disposition home or self-care (01) ==
LOC: FECT 05:37
PROVIDERS: ATTEND Psychiatry & Neurology Psychiatry
PROC: GZB4ZZZ Other Electroconvulsive Therapy (ICD-10-PCS; principal; 2017-03-18 07:00)
DX: F31.32 Bipolar disorder, current episode depressed, moderate (principal)
CPT/HCPCS: 90870; 94760

== ENCOUNTER 2017-04-01 05:37 | Day surgery (SDC) | payer OTHER ==
[2017-04-01 06:40] VITALS: TEMP 98.2; BMI 39.4
[2017-04-01] MEDS ORDERED: ONDANSETRON 4 MG/2 ML VIAL IVPUSH PRN (08:01)
[2017-04-01 08:56] VITALS: BP 125/81; PULSE 84
--- NOTE | 2017-04-01 22:06 | EKG ---
Test Reason : Blood Pressure : / mmHG Vent. Rate : 072 BPM Atrial Rate : 072 BPM P-R Int : 212 ms QRS Dur : 102 ms QT Int : 382 ms P-R-T Axes : 025 002 004 degrees QTc Int : 418 ms SINUS RHYTHM WITH 1ST DEGREE A-V BLOCK BASELINE ARTIFACTS MODERATE VOLTAGE CRITERIA FOR LVH, MAY BE NORMAL VARIANT Q WAVES IN III ANDaVF ABNORMAL ECG WHEN COMPARED WITH ECG OF 08-OCT-2016 06:06, IS NOW PRESENT NO MAJOR CHANGE SEEN REPEAT EKG IF CLINICALLY INDICATED Confirmed by MONICA SOLO MD ([id number]) on 04/01/2017 10:05:46 PM Referred By: Murphy Prather Confirmed By:MONICA SOLO MD
== END 2017-04-01 08:50 | disposition home or self-care (01) ==
LOC: FECT 05:37
PROVIDERS: ATTEND Psychiatry & Neurology Psychiatry
PROC: GZB4ZZZ Other Electroconvulsive Therapy (ICD-10-PCS; principal; 2017-04-01 07:15)
DX: F33.2 Major depressive disorder, recurrent severe without psychotic features (principal)
CPT/HCPCS: 90870; 93005; 94760

== ENCOUNTER 2017-04-17 05:39 | Day surgery (SDC) | payer OTHER ==
[2017-04-17 06:12] VITALS: BMI 38.4
[2017-04-17 08:06] VITALS: TEMP 98.6
--- NOTE | 2017-04-17 08:32 | HP ---
Admitting History and Physical - Admission History of Present Illness: Patient is a 46 y/o male with a past medical history of htn, bipolar disorder, and gely(bipap). Patient presents for ect, his last ect was 04/01/17. He was recently discharged from [facility] on 04/15/17 following a 3 day admission for cellulitis of the right lower extremity. Patient was discharged home clindamycin. He reports feeling well, patient denies any fevers or right lower extremity pain. He reports an improvement in the right lower extremity edema since his discharge from the hospital. History Source: Patient Limitations to Obtaining History: No Limitations - Past Medical History Cardiovascular: Yes: HTN. No: AFIB, Aneurysm, Aortic Insufficiency, Aortic Stenosis, CAD, CHF, Deep Vein Thrombosis, Hyperlipdemia, [place], Mitral Insufficiency, Mitral Stenosis, Murmur, Pulmonary Hypertension, Other Pulmonary: Yes: Sleep Apnea, Other. No: Asthma, Bronchitis, Cancer, COPD, O2 Dependent, Pneumonia, Previously Intubated, Pulmonary Embolus, Pulmonary Fibrosis Psych: Yes: Bipolar, Depression. No: Addictions, Anxiety, Panic, Psychosis, Schizophrenia, Other - Past Surgical History Past Surgical History: Yes: None - Smoking History Smoking history: Never smoked Have you smoked in the past 12 months: No - Alcohol/Substance Use Hx Alcohol Use: No History of Substance Use: reports: None - Social History ADL: Independent Occupation: [employer] History of Recent Travel: No Home Medications - Allergies Allergies/Adverse Reactions: Allergies Allergy/AdvReac Type Severity Reaction Status Date / Time No Known Allergies Allergy Verified 03/05/17 16:15 - Home Medications Home Medications: Ambulatory Orders Amlodipine Besylate [Norvasc -] 10 mg PO DAILY 11/16/12 Aspirin [ASA -] 81 mg PO HS 11/16/12 Labetalol HCl 200 mg PO BID 11/16/12 Cholecalciferol (Vitamin D3) [Vitamin D3] 4,000 unit PO DAILY 06/14/14 Quetiapine Fumarate "Xr" [Seroquel XR] 300 mg PO HS 03/21/15 Clindamycin [Cleocin -] 300 mg PO TID 04/17/17 Family Disease History - Family Disease History Family History: Unremarkable Review of Systems - Review of Systems Constitutional: reports: No Symptoms Eyes: reports: No Symptoms HENT: reports: No Symptoms Neck: reports: No Symptoms Cardiovascular: reports: No Symptoms Respiratory: reports: No Symptoms Gastrointestinal: reports: No Symptoms Genitourinary: reports: No Symptoms Musculoskeletal: reports: No Symptoms Integumentary: reports: Erythema Neurological: reports: No Symptoms Endocrine: reports: No Symptoms Hematology/Lymphatic: reports: No Symptoms Psychiatric: reports: No Symptoms Physical Examination Vital Signs: Vital Signs Temperature 98.6 F 04/17/17 07:50 Pulse Rate 85 04/17/17 07:50 Respiratory Rate 20 04/17/17 07:50 Blood Pressure 144/95 04/17/17 07:50 O2 Sat by Pulse Oximetry (%) 95 04/17/17 07:50 Constitutional: Yes: Well Nourished, No Distress, Calm, Obese Eyes: Yes: WNL, Conjunctiva Clear, EOM Intact HENT: Yes: WNL, Atraumatic, Normocephalic Neck: Yes: WNL, Supple, Trachea Midline Cardiovascular: Yes: WNL, Regular Rate and Rhythm, S1, S2 Respiratory: Yes: WNL, Regular, CTA Bilaterally Gastrointestinal: Yes: WNL, Normal Bowel Sounds, Soft ...Rectal Exam: Yes: Deferred Renal/: Yes: WNL Extremities: Yes: Other (scant erythema to the distal right lower extremity) Edema: No Labs: reviewed 01/27 Imaging - Results EKG: Other (nsr with first degree av block unchanged from prior ekg) Assessment/Plan patient is a 46 y/o male, that presents for ect, labs and ekg reviewed patient is medically optimized for procedure.
[2017-04-17 08:40] VITALS: BP 139/82; PULSE 88
== END 2017-04-17 08:25 | disposition home or self-care (01) ==
LOC: FECT 05:39
PROVIDERS: ATTEND Psychiatry & Neurology Psychiatry
PROC: GZB4ZZZ Other Electroconvulsive Therapy (ICD-10-PCS; principal; 2017-04-17 08:15)
DX: F31.32 Bipolar disorder, current episode depressed, moderate (principal)
CPT/HCPCS: 90870; 94760

== ENCOUNTER 2017-04-29 05:37 | Day surgery (SDC) | payer OTHER ==
[2017-04-29 06:13] VITALS: BMI 37.0
[2017-04-29] MEDS ORDERED: oxyCODONE HCL 5 MG TABLET PO PRN (07:44)
[2017-04-29] MEDS ORDERED: ONDANSETRON 4 MG/2 ML VIAL IVPUSH PRN (07:44)
[2017-04-29] MEDS ORDERED: LACTATED RINGERS SOLUTION 1,000 ML IV SCH (07:45)
[2017-04-29 07:49] VITALS: TEMP 98.2
[2017-04-29 08:07] VITALS: BP 115/70; PULSE 84
== END 2017-04-29 08:00 | disposition home or self-care (01) ==
LOC: FECT 05:37
PROVIDERS: ATTEND Psychiatry & Neurology Psychiatry
PROC: GZB4ZZZ Other Electroconvulsive Therapy (ICD-10-PCS; principal; 2017-04-29 07:00)
DX: F31.32 Bipolar disorder, current episode depressed, moderate (principal)
CPT/HCPCS: 90870; 94760

== ENCOUNTER 2017-05-13 05:39 | Day surgery (SDC) | payer OTHER ==
[2017-05-13 06:19] VITALS: BMI 35.8
[2017-05-13 08:16] VITALS: TEMP 98
[2017-05-13 08:22] VITALS: BP 119/77; PULSE 84
== END 2017-05-13 08:25 | disposition home or self-care (01) ==
LOC: FECT 05:39
PROVIDERS: ATTEND Psychiatry & Neurology Psychiatry
PROC: GZB4ZZZ Other Electroconvulsive Therapy (ICD-10-PCS; principal; 2017-05-13 07:00)
DX: F31.32 Bipolar disorder, current episode depressed, moderate (principal)
CPT/HCPCS: 90870; 94760

== ENCOUNTER 2017-05-27 05:41 | Day surgery (SDC) | payer OTHER ==
[2017-05-21 17:22] VITALS: BMI 35.6
--- NOTE | 2017-05-27 06:48 | HP ---
Admitting History and Physical - Admission History of Present Illness: patient is a 46 y/o male with a past medical history of gely (sleep apnea), htn , bipolar disorder. Patient presents for ect, his last ect was 05/13/17. He reports feeling well, Patient reports an intentional 4 lbs weight loss within the past 30 days. Patient reports walking 4 miles daily and portion control with a strict low calorie diet for the past several months. He denies any recent illnesses or hospitalizations. - Past Medical History Cardiovascular: Yes: HTN. No: AFIB, Aneurysm, Aortic Insufficiency, Aortic Stenosis, CAD, CHF, Deep Vein Thrombosis, Hyperlipdemia, [place], Mitral Insufficiency, Mitral Stenosis, Murmur, Pulmonary Hypertension, Other Pulmonary: Yes: Sleep Apnea, Other. No: Asthma, Bronchitis, Cancer, COPD, O2 Dependent, Pneumonia, Previously Intubated, Pulmonary Embolus, Pulmonary Fibrosis Psych: Yes: Bipolar, Depression. No: Addictions, Anxiety, Panic, Psychosis, Schizophrenia, Other - Past Surgical History Past Surgical History: Yes: None - Smoking History Smoking history: Never smoked Have you smoked in the past 12 months: No - Alcohol/Substance Use Hx Alcohol Use: No History of Substance Use: reports: None - Social History Usual Living Arrangement: Yes: With Parent ADL: Independent Occupation: [employer] History of Recent Travel: No Home Medications - Allergies Allergies/Adverse Reactions: Allergies Allergy/AdvReac Type Severity Reaction Status Date / Time No Known Allergies Allergy Verified 05/21/17 17:17 - Home Medications Home Medications: Ambulatory Orders Amlodipine Besylate [Norvasc -] 10 mg PO DAILY 11/16/12 Aspirin [ASA -] 81 mg PO HS 11/16/12 Labetalol HCl 200 mg PO BID 11/16/12 Cholecalciferol (Vitamin D3) [Vitamin D3] 4,000 unit PO DAILY 06/14/14 Quetiapine Fumarate "Xr" [Seroquel XR] 300 mg PO HS 03/21/15 Family Disease History - Family Disease History Family History: Denies Review of Systems - Review of Systems Constitutional: reports: No Symptoms Eyes: reports: No Symptoms HENT: reports: No Symptoms Neck: reports: No Symptoms Cardiovascular: reports: No Symptoms Respiratory: reports: No Symptoms Gastrointestinal: reports: No Symptoms Genitourinary: reports: No Symptoms Musculoskeletal: reports: No Symptoms Integumentary: reports: No Symptoms Neurological: reports: No Symptoms Endocrine: reports: No Symptoms Hematology/Lymphatic: reports: No Symptoms Psychiatric: reports: No Symptoms Physical Examination Constitutional: Yes: Well Nourished, No Distress, Calm Eyes: Yes: WNL, Conjunctiva Clear, EOM Intact HENT: Yes: WNL, Atraumatic, Normocephalic Neck: Yes: WNL, Supple, Trachea Midline Cardiovascular: Yes: WNL, Regular Rate and Rhythm, S1, S2 Respiratory: Yes: WNL, Regular, CTA Bilaterally Gastrointestinal: Yes: WNL, Normal Bowel Sounds, Soft ...Rectal Exam: Yes: Deferred Renal/: Yes: WNL Breast(s): Yes: WNL Musculoskeletal: Yes: WNL Extremities: Yes: WNL Edema: No Peripheral Pulses WNL: Yes Peripheral Pulses: Left Radial: 4+, Right Radial: 4+, Left Doralis Pedis: 3+, Right Dorsalis Pedis: 3+, Left Femoral: 3+, Right Femoral: 3+ Integumentary: Yes: WNL Neurological: Yes: WNL, Alert, Oriented ...Motor Strength: WNL Psychiatric: Yes: WNL, Alert, Oriented Labs: reviewed 01/27 Imaging - Results EKG: Image Reviewed, Other (nsr no ischemic changes, 1st degree av block) Assessment/Plan patient is a 46 y/o male that presents for ect, labs and ekg reviewed. patient is medically optimized for procedure informed consent, risks/benefits to be obtained by Dr Prather
[2017-05-27 09:15] VITALS: TEMP 97.4
[2017-05-27 09:30] VITALS: BP 137/81; PULSE 88
== END 2017-05-27 09:35 | disposition home or self-care (01) ==
LOC: FECT 05:41
PROVIDERS: ATTEND Psychiatry & Neurology Psychiatry
PROC: GZB4ZZZ Other Electroconvulsive Therapy (ICD-10-PCS; principal; 2017-05-27 07:30)
DX: F31.32 Bipolar disorder, current episode depressed, moderate (principal)
CPT/HCPCS: 90870; 94760

== ENCOUNTER 2017-06-10 05:41 | Day surgery (SDC) | payer OTHER ==
[2017-06-10 06:21] VITALS: TEMP 98; BMI 34.7
[2017-06-10 08:21] VITALS: BP 122/76; PULSE 77
== END 2017-06-10 08:25 | disposition home or self-care (01) ==
LOC: FECT 05:41
PROVIDERS: ATTEND Psychiatry & Neurology Psychiatry
PROC: GZB4ZZZ Other Electroconvulsive Therapy (ICD-10-PCS; principal; 2017-06-10 07:15)
DX: F31.32 Bipolar disorder, current episode depressed, moderate (principal)
CPT/HCPCS: 90870; 94760

== ENCOUNTER 2017-06-24 05:38 | Day surgery (SDC) | payer OTHER ==
[2017-06-24 06:08] VITALS: BMI 35.7
[2017-06-24 08:03] VITALS: TEMP 98.8
[2017-06-24 08:22] VITALS: BP 121/71; PULSE 77
== END 2017-06-24 08:30 | disposition home or self-care (01) ==
LOC: FECT 05:38
PROVIDERS: ATTEND Psychiatry & Neurology Psychiatry
PROC: GZB4ZZZ Other Electroconvulsive Therapy (ICD-10-PCS; principal; 2017-06-24 07:15)
DX: F31.32 Bipolar disorder, current episode depressed, moderate (principal)
CPT/HCPCS: 90870; 94760

== ENCOUNTER 2017-07-08 05:40 | Day surgery (SDC) | payer OTHER ==
[2017-07-08 06:20] VITALS: BMI 37.4
--- NOTE | 2017-07-08 06:56 | HP ---
Admitting History and Physical - Admission History of Present Illness: Patient is a 46 y/o male with a past medical history of gely (bipap), htn, and bipolar disorder. Patient presents for ect, his last ect was 06/24/17. Patient reports feeling well, he denies any recent illnesses or hospitalizations. He reports an improvement in depressive since starting ect. He denies any recent changes to medications, patient denies any suicidal or homicidal ideation, visual or auditory hallucinations. History Source: Patient - Past Medical History Cardiovascular: Yes: HTN. No: AFIB, Aneurysm, Aortic Insufficiency, Aortic Stenosis, CAD, CHF, Deep Vein Thrombosis, Hyperlipdemia, [place], Mitral Insufficiency, Mitral Stenosis, Murmur, Pulmonary Hypertension, Other Pulmonary: Yes: Sleep Apnea, Other. No: Asthma, Bronchitis, Cancer, COPD, O2 Dependent, Pneumonia, Previously Intubated, Pulmonary Embolus, Pulmonary Fibrosis Psych: Yes: Bipolar, Depression. No: Addictions, Anxiety, Panic, Psychosis, Schizophrenia, Other - Past Surgical History Past Surgical History: Yes: None - Smoking History Smoking history: Never smoked Have you smoked in the past 12 months: No - Alcohol/Substance Use Hx Alcohol Use: No History of Substance Use: reports: None - Social History Usual Living Arrangement: Yes: Alone ADL: Independent Occupation: [employer] History of Recent Travel: No Home Medications - Allergies Allergies/Adverse Reactions: Allergies Allergy/AdvReac Type Severity Reaction Status Date / Time No Known Allergies Allergy Verified 05/21/17 17:17 - Home Medications Home Medications: Ambulatory Orders Amlodipine Besylate [Norvasc -] 10 mg PO DAILY 11/16/12 Aspirin [ASA -] 81 mg PO HS 11/16/12 Labetalol HCl 200 mg PO BID 11/16/12 Cholecalciferol (Vitamin D3) [Vitamin D3] 4,000 unit PO DAILY 06/14/14 Quetiapine Fumarate "Xr" [Seroquel XR] 300 mg PO HS 03/21/15 Family Disease History - Family Disease History Family History: Denies Review of Systems - Review of Systems Constitutional: reports: No Symptoms Eyes: reports: No Symptoms HENT: reports: No Symptoms Neck: reports: No Symptoms Cardiovascular: reports: No Symptoms Respiratory: reports: No Symptoms Gastrointestinal: reports: No Symptoms Genitourinary: reports: No Symptoms Musculoskeletal: reports: No Symptoms Integumentary: reports: No Symptoms Neurological: reports: No Symptoms Endocrine: reports: No Symptoms Hematology/Lymphatic: reports: No Symptoms Psychiatric: reports: No Symptoms Physical Examination Vital Signs: Vital Signs Temperature 97.8 F 07/08/17 06:17 Pulse Rate 83 07/08/17 06:17 Respiratory Rate 18 07/08/17 06:17 Blood Pressure 127/83 07/08/17 06:17 O2 Sat by Pulse Oximetry (%) 99 07/08/17 06:17 Constitutional: Yes: Well Nourished, No Distress, Calm, Obese Eyes: Yes: WNL, Conjunctiva Clear, EOM Intact HENT: Yes: WNL, Atraumatic, Normocephalic Neck: Yes: WNL, Supple, Trachea Midline Cardiovascular: Yes: WNL, Regular Rate and Rhythm, S1, S2 Respiratory: Yes: WNL, Regular, CTA Bilaterally Gastrointestinal: Yes: WNL, Normal Bowel Sounds, Soft ...Rectal Exam: Yes: Deferred Renal/: Yes: WNL Musculoskeletal: Yes: WNL Extremities: Yes: WNL Edema: No Peripheral Pulses WNL: Yes Peripheral Pulses: Left Radial: 4+, Right Radial: 4+, Left Doralis Pedis: 3+, Right Dorsalis Pedis: 3+, Left Femoral: 3+, Right Femoral: 3+ Integumentary: Yes: WNL Neurological: Yes: WNL, Alert, Oriented ...Motor Strength: WNL Psychiatric: Yes: WNL, Alert, Oriented Labs: reviewed 01/27 Imaging - Results EKG: Image Reviewed, Other (nsr, first degree av block) Assessment/Plan patient is a 46 y/o male that presents for ect, labs and ekg reviewed pt is medically optimized for procedure informed consent, risks/benefits to be obtained by Dr Prather
[2017-07-08] MEDS ORDERED: ACETAMINOPHEN 325 MG TABLET (FP) PO PRN (08:12)
[2017-07-08 08:49] VITALS: TEMP 97.9
[2017-07-08 09:33] VITALS: BP 114/72; PULSE 86
== END 2017-07-08 09:35 | disposition home or self-care (01) ==
LOC: FECT 05:40
PROVIDERS: ATTEND Psychiatry & Neurology Psychiatry
PROC: GZB4ZZZ Other Electroconvulsive Therapy (ICD-10-PCS; principal; 2017-07-08 07:00)
DX: F31.32 Bipolar disorder, current episode depressed, moderate (principal)
CPT/HCPCS: 90870; 94760

== ENCOUNTER 2017-07-22 05:38 | Day surgery (SDC) | payer OTHER ==
[2017-07-22 06:20] VITALS: BMI 36.5
[2017-07-22 07:52] VITALS: TEMP 97.6
[2017-07-22 08:38] VITALS: BP 112/71; PULSE 77
== END 2017-07-22 08:39 | disposition home or self-care (01) ==
LOC: FECT 05:38
PROVIDERS: ATTEND Psychiatry & Neurology Psychiatry
PROC: GZB4ZZZ Other Electroconvulsive Therapy (ICD-10-PCS; principal; 2017-07-22 07:15)
DX: F33.2 Major depressive disorder, recurrent severe without psychotic features (principal)
CPT/HCPCS: 90870; 94760

== ENCOUNTER 2017-08-05 05:35 | Day surgery (SDC) | payer OTHER ==
[2017-08-05 06:06] VITALS: BMI 35.9
[2017-08-05 07:35] LABS: BASO % 0.8 % (0-2.0); EOS % 2.6 % (0-4.5); HEMATOCRIT 46.3 % (35.4-49); LYMPH % 21.4 % (8-40); MCH 29.2 pg (25.7-33.7); MCHC 32.4 g/dl (32.0-35.9); MEAN CELL VOLUME 90.1 fl (80-96); MEAN PLT VOLUME 9.3 fl (7.5-11.1); NEUT % 68.2 % (42.8-82.8); PLATELET COUNT 195 K/MM3 (134-434); RBC 5.14 M/mm3 (4.00-5.60); RDW 12.1 % (11.9-15.9)
[2017-08-05 07:55] LABS: ALBUMIN 4.5 g/dl (3.5-5.0); ALK PHOS 95 U/L (32-92); ANION GAP 9 (8-16); BILIRUBIN,TOTAL 0.8 mg/dl (0.2-1.0); BLOOD UREA NITROGEN 16 mg/dl (7-18); CALCIUM 9.5 mg/dl (8.4-10.2); CHLORIDE 102 mmol/L (98-107); CO2 26 mmol/L (22-28); CREATININE 1.1 mg/dl (0.6-1.3); GLUCOSE,RANDOM 95 mg/dl (74-106); POTASSIUM 3.8 mmol/L (3.5-5.1); SGOT/AST 16 U/L (10-42); SGPT/ALT 19 U/L (10-40); SODIUM 137 mmol/L (136-145); TOT PROT 6.9 g/dl (6.4-8.3)
[2017-08-05 08:16] VITALS: TEMP 97.9
[2017-08-05] MEDS ORDERED: ACETAMINOPHEN 325 MG TABLET (FP) PO PRN (08:35)
[2017-08-05] MEDS ORDERED: PROMETHAZINE HCL 25 MG/1 ML VIAL IVPUSH PRN (08:35)
[2017-08-05] MEDS ORDERED: ONDANSETRON 4 MG/2 ML VIAL IVPUSH PRN (08:35)
[2017-08-05 08:41] VITALS: BP 124/72; PULSE 86
[2017-08-05] MEDS ORDERED: LACTATED RINGERS SOLUTION 1,000 ML IV SCH (08:45)
== END 2017-08-05 08:42 | disposition home or self-care (01) ==
LOC: FECT 05:35
PROVIDERS: ATTEND Psychiatry & Neurology Psychiatry
PROC: GZB4ZZZ Other Electroconvulsive Therapy (ICD-10-PCS; principal; 2017-08-05 07:00)
DX: F31.32 Bipolar disorder, current episode depressed, moderate (principal)
CPT/HCPCS: 36415; 80053; 85025; 90870; 94760

== ENCOUNTER 2017-08-19 05:38 | Day surgery (SDC) | payer OTHER ==
[2017-08-19 06:29] VITALS: TEMP 98.9; BMI 35.3
--- NOTE | 2017-08-19 07:06 | HP ---
Admitting History and Physical - Admission History of Present Illness: Patient is a 46 y/o male with a past medical history of MILI (Bipap), htn, and bipolar disease. Patient presents for ect, his last ect was 08/05/17. He reports feeling well, and reports an improvement in manic symptoms since starting ect. Patient denies any changes to medications. He denies any recent illnessess or hospitalizations. History Source: Patient Limitations to Obtaining History: No Limitations - Past Medical History Cardiovascular: Yes: HTN. No: AFIB, Aneurysm, Aortic Insufficiency, Aortic Stenosis, CAD, CHF, Deep Vein Thrombosis, Hyperlipdemia, [place], Mitral Insufficiency, Mitral Stenosis, Murmur, Pulmonary Hypertension, Other Pulmonary: Yes: Sleep Apnea, Other. No: Asthma, Bronchitis, Cancer, COPD, O2 Dependent, Pneumonia, Previously Intubated, Pulmonary Embolus, Pulmonary Fibrosis Psych: Yes: Bipolar, Depression. No: Addictions, Anxiety, Panic, Psychosis, Schizophrenia, Other - Past Surgical History Past Surgical History: Yes: None - Smoking History Smoking history: Never smoked Have you smoked in the past 12 months: No - Alcohol/Substance Use Hx Alcohol Use: No History of Substance Use: reports: None - Social History ADL: Independent Occupation: [employer] History of Recent Travel: No Home Medications - Allergies Allergies/Adverse Reactions: Allergies Allergy/AdvReac Type Severity Reaction Status Date / Time No Known Allergies Allergy Verified 05/21/17 17:17 - Home Medications Home Medications: Ambulatory Orders Amlodipine Besylate [Norvasc -] 10 mg PO DAILY 11/16/12 Aspirin [ASA -] 81 mg PO HS 11/16/12 Labetalol HCl 200 mg PO BID 11/16/12 Cholecalciferol (Vitamin D3) [Vitamin D3] 4,000 unit PO DAILY 06/14/14 Quetiapine Fumarate "Xr" [Seroquel XR] 300 mg PO HS 03/21/15 Family Disease History - Family Disease History Family History: Denies Review of Systems - Review of Systems Constitutional: reports: No Symptoms Eyes: reports: No Symptoms HENT: reports: No Symptoms Neck: reports: No Symptoms Cardiovascular: reports: No Symptoms Respiratory: reports: No Symptoms Gastrointestinal: reports: No Symptoms Genitourinary: reports: No Symptoms Musculoskeletal: reports: No Symptoms Integumentary: reports: No Symptoms Neurological: reports: No Symptoms Endocrine: reports: No Symptoms Hematology/Lymphatic: reports: No Symptoms Psychiatric: reports: No Symptoms Physical Examination Vital Signs: Vital Signs Temperature 98.9 F 08/19/17 06:26 Pulse Rate 76 08/19/17 06:26 Respiratory Rate 18 08/19/17 06:26 Blood Pressure 124/82 08/19/17 06:26 O2 Sat by Pulse Oximetry (%) 97 08/19/17 06:26 Constitutional: Yes: Well Nourished, No Distress, Calm, Obese Eyes: Yes: WNL, Conjunctiva Clear, EOM Intact HENT: Yes: WNL, Atraumatic, Normocephalic Neck: Yes: WNL, Supple, Trachea Midline Cardiovascular: Yes: WNL, Regular Rate and Rhythm, S1, S2 Respiratory: Yes: WNL, Regular, CTA Bilaterally Gastrointestinal: Yes: WNL, Normal Bowel Sounds, Soft ...Rectal Exam: Yes: Deferred Renal/: Yes: WNL Musculoskeletal: Yes: WNL Extremities: Yes: WNL Edema: No Peripheral Pulses WNL: Yes Peripheral Pulses: Left Radial: 4+, Right Radial: 4+, Left Doralis Pedis: 3+, Right Dorsalis Pedis: 3+, Left Femoral: 3+, Right Femoral: 3+ Integumentary: Yes: WNL Neurological: Yes: WNL, Alert, Oriented ...Motor Strength: WNL Psychiatric: Yes: WNL, Alert, Oriented Labs: reviewed 06/05/18 Imaging - Results EKG: Other (nsr 1st degree av block unchanged from prior) Assessment/Plan patient is a 46 y/o male that presents for ect, labs and ekg reviewed, patient is medically optimized for procedure. informed consent, risks/benefits to be obtained by Dr Prather.
[2017-08-19 09:30] VITALS: BP 118/81; PULSE 84
== END 2017-08-19 09:30 | disposition home or self-care (01) ==
LOC: FECT 05:38
PROVIDERS: ATTEND Psychiatry & Neurology Psychiatry
PROC: GZB4ZZZ Other Electroconvulsive Therapy (ICD-10-PCS; principal; 2017-08-19 07:45)
DX: F31.32 Bipolar disorder, current episode depressed, moderate (principal)
CPT/HCPCS: 90870; 94760

== ENCOUNTER 2017-09-30 05:38 | Day surgery (SDC) | payer OTHER ==
[2017-09-30 06:09] VITALS: TEMP 98.1
[2017-09-30 06:10] VITALS: BMI 35.4
[2017-09-30 08:23] VITALS: BP 120/88; PULSE 88
[2017-09-30] MEDS ORDERED: ONDANSETRON 4 MG/2 ML VIAL IVPUSH PRN (08:55)
== END 2017-09-30 08:30 | disposition home or self-care (01) ==
LOC: FECT 05:38
PROVIDERS: ATTEND Psychiatry & Neurology Psychiatry
PROC: GZB4ZZZ Other Electroconvulsive Therapy (ICD-10-PCS; principal; 2017-09-30 07:30)
DX: F31.32 Bipolar disorder, current episode depressed, moderate (principal)
CPT/HCPCS: 90870; 94760

== ENCOUNTER 2017-10-14 05:40 | Day surgery (SDC) | payer OTHER ==
[2017-10-07 12:15] VITALS: BMI 35.5
[2017-10-14] MEDS ORDERED: oxyCODONE HCL 5 MG TABLET PO PRN (08:06)
[2017-10-14 08:10] VITALS: TEMP 97.9
[2017-10-14 08:32] VITALS: PULSE 88
[2017-10-14 09:46] VITALS: BP 134/84
--- NOTE | 2017-10-14 11:42 | EKG ---
Test Reason : Blood Pressure : / mmHG Vent. Rate : 083 BPM Atrial Rate : 083 BPM P-R Int : 194 ms QRS Dur : 090 ms QT Int : 362 ms P-R-T Axes : 066 054 032 degrees QTc Int : 425 ms NORMAL SINUS RHYTHM NORMAL ECG Confirmed by Mayo Weiss MD ([id number]) on 10/14/2017 11:41:36 AM Referred By: Murphy Prather Confirmed By:Mayo Weiss MD
== END 2017-10-14 08:35 | disposition home or self-care (01) ==
LOC: FECT 05:40
PROVIDERS: ATTEND Psychiatry & Neurology Psychiatry
PROC: GZB4ZZZ Other Electroconvulsive Therapy (ICD-10-PCS; principal; 2017-10-14 07:45)
DX: F31.32 Bipolar disorder, current episode depressed, moderate (principal)
CPT/HCPCS: 90870; 93005; 94760

== ENCOUNTER 2017-10-28 05:37 | Day surgery (SDC) | payer OTHER ==
[2017-10-28 06:11] VITALS: BMI 37.6
[2017-10-28] MEDS ORDERED: ACETAMINOPHEN 325 MG TABLET (FP) PO PRN (07:07)
--- NOTE | 2017-10-28 07:09 | HP ---
Admitting History and Physical - Admission History of Present Illness: /Patient is a 46 y/o male with a past medical history of bipolar, hypertension, MILI (bipap). Patient presents for ect, his last ect was 10/14/16. patient reports feeling well. He was bitten by his neighbor's dog yesterday afternoon. Patient was evaluated at the local emergency department and was started on Augmentin. Patient reports the dog was up to date with his immunizations. Patient reports compliance with prescribed antibiotics. Patient denies any suicidal or homicidal ideation, visual or auditory hallucinations. History Source: Patient, Medical Record Limitations to Obtaining History: No Limitations - Past Medical History Cardiovascular: Yes: HTN. No: AFIB, Aneurysm, Aortic Insufficiency, Aortic Stenosis, CAD, CHF, Deep Vein Thrombosis, Hyperlipdemia, [place], Mitral Insufficiency, Mitral Stenosis, Murmur, Pulmonary Hypertension, Other Pulmonary: Yes: Sleep Apnea, Other. No: Asthma, Bronchitis, Cancer, COPD, O2 Dependent, Pneumonia, Previously Intubated, Pulmonary Embolus, Pulmonary Fibrosis Psych: Yes: Bipolar, Depression. No: Addictions, Anxiety, Panic, Psychosis, Schizophrenia, Other - Past Surgical History Past Surgical History: Yes: None - Smoking History Smoking history: Never smoked Have you smoked in the past 12 months: No - Alcohol/Substance Use Hx Alcohol Use: No History of Substance Use: reports: None - Social History Usual Living Arrangement: Yes: With Parent ADL: Independent Occupation: [employer] History of Recent Travel: No Home Medications - Allergies Allergies/Adverse Reactions: Allergies Allergy/AdvReac Type Severity Reaction Status Date / Time No Known Allergies Allergy Verified 05/21/17 17:17 - Home Medications Home Medications: Ambulatory Orders Amlodipine Besylate [Norvasc -] 10 mg PO DAILY 11/16/12 Aspirin [ASA -] 81 mg PO HS 11/16/12 Labetalol HCl 200 mg PO BID 11/16/12 Cholecalciferol (Vitamin D3) [Vitamin D3] 4,000 unit PO DAILY 06/14/14 Quetiapine Fumarate "Xr" [Seroquel XR] 300 mg PO HS 03/21/15 Amoxicillin/Potassium Clav [Augmentin 875-125 Tablet] 1 each PO BID 10/28/17 Family Disease History - Family Disease History Family History: Denies Review of Systems - Review of Systems Constitutional: reports: No Symptoms Eyes: reports: No Symptoms HENT: reports: No Symptoms Neck: reports: No Symptoms Cardiovascular: reports: No Symptoms Respiratory: reports: No Symptoms Gastrointestinal: reports: No Symptoms Genitourinary: reports: No Symptoms Musculoskeletal: reports: No Symptoms Integumentary: reports: Other (abrasion to right lateral thigh) Neurological: reports: No Symptoms Endocrine: reports: No Symptoms Hematology/Lymphatic: reports: No Symptoms Psychiatric: reports: No Symptoms Physical Examination Vital Signs: Vital Signs Temperature 99 F 10/28/17 06:02 Pulse Rate 88 10/28/17 06:02 Respiratory Rate 18 10/28/17 06:02 Blood Pressure 122/92 10/28/17 06:02 O2 Sat by Pulse Oximetry (%) 96 10/28/17 06:02 Constitutional: Yes: Well Nourished, No Distress, Calm, Obese Eyes: Yes: WNL, Conjunctiva Clear, EOM Intact HENT: Yes: WNL, Atraumatic, Normocephalic Neck: Yes: WNL, Supple, Trachea Midline Cardiovascular: Yes: WNL, Regular Rate and Rhythm, S1, S2 Respiratory: Yes: WNL, Regular, CTA Bilaterally Gastrointestinal: Yes: WNL, Normal Bowel Sounds, Soft ...Rectal Exam: Yes: Deferred Renal/: Yes: WNL Musculoskeletal: Yes: WNL Extremities: Yes: WNL Edema: No Peripheral Pulses WNL: Yes Peripheral Pulses: Left Radial: 4+, Right Radial: 4+, Left Doralis Pedis: 3+, Right Dorsalis Pedis: 3+, Left Femoral: 3+, Right Femoral: 3+ Integumentary: Yes: Other (2 cm abrasion to right lateral thigh, minimal erythema, no induration noted) Neurological: Yes: WNL, Alert, Oriented ...Motor Strength: WNL Psychiatric: Yes: WNL, Alert, Oriented Labs: reviewed 07/31 Imaging - Results EKG: Report Reviewed, Image Reviewed, Other (nsr) Assessment/Plan patient is a 46 y/o male that presents for ect, labs and ekg reviewed patient is medically optimized for procedure informed consent, risks/benefits to be obtained by Dr Prather
[2017-10-28] MEDS ORDERED: LACTATED RINGERS SOLUTION 1,000 ML IV SCH (07:15)
[2017-10-28 08:53] VITALS: TEMP 98.7
[2017-10-28 08:57] VITALS: BP 129/79; PULSE 96
== END 2017-10-28 08:55 | disposition home or self-care (01) ==
LOC: FECT 05:37
PROVIDERS: ATTEND Psychiatry & Neurology Psychiatry
PROC: GZB4ZZZ Other Electroconvulsive Therapy (ICD-10-PCS; principal; 2017-10-28 07:15)
DX: F31.32 Bipolar disorder, current episode depressed, moderate (principal)
CPT/HCPCS: 90870; 94760

== ENCOUNTER 2017-11-11 05:39 | Day surgery (SDC) | payer OTHER ==
[2017-11-11 06:08] VITALS: BMI 37.0
[2017-11-11 08:27] VITALS: TEMP 97.8
[2017-11-11 09:09] VITALS: BP 122/82; PULSE 88
== END 2017-11-11 08:50 | disposition home or self-care (01) ==
LOC: FECT 05:39
PROVIDERS: ATTEND Psychiatry & Neurology Psychiatry
PROC: GZB4ZZZ Other Electroconvulsive Therapy (ICD-10-PCS; principal; 2017-11-11 07:15)
DX: F31.32 Bipolar disorder, current episode depressed, moderate (principal)
CPT/HCPCS: 90870; 94760

== ENCOUNTER 2017-11-25 05:38 | Day surgery (SDC) | payer OTHER ==
[2017-11-25 06:01] VITALS: BMI 37.2
[2017-11-25 08:30] VITALS: TEMP 97.9
[2017-11-25 08:32] VITALS: BP 126/72; PULSE 85
== END 2017-11-25 08:33 | disposition home or self-care (01) ==
LOC: FECT 05:38
PROVIDERS: ATTEND Psychiatry & Neurology Psychiatry
PROC: GZB4ZZZ Other Electroconvulsive Therapy (ICD-10-PCS; principal; 2017-11-25 07:00)
DX: F25.1 Schizoaffective disorder, depressive type (principal)
CPT/HCPCS: 90870; 94760

== ENCOUNTER 2017-12-09 05:38 | Day surgery (SDC) | payer OTHER ==
[2017-12-09 07:09] VITALS: BMI 37.0
--- NOTE | 2017-12-09 07:13 | HP ---
Admitting History and Physical - Admission History of Present Illness: Patient is a 46 y/o obese male with a past medical history of bipolar disorder, hypertension, and MILI (bipap). Patient presents for ect, his last ect was 11/25. Patient reports feeling well, he reports an improvement in depressive symptoms since starting ect. patient denies any changes in medications. Patient denies any recent illnesses or hospitalizations. patient denies any suicidal or homicidal ideation, visual or auditory hallucinations. History Source: Patient - Past Medical History Cardiovascular: Yes: HTN. No: AFIB, Aneurysm, Aortic Insufficiency, Aortic Stenosis, CAD, CHF, Deep Vein Thrombosis, Hyperlipdemia, [place], Mitral Insufficiency, Mitral Stenosis, Murmur, Pulmonary Hypertension, Other Pulmonary: Yes: Sleep Apnea, Other. No: Asthma, Bronchitis, Cancer, COPD, O2 Dependent, Pneumonia, Previously Intubated, Pulmonary Embolus, Pulmonary Fibrosis Psych: Yes: Bipolar, Depression. No: Addictions, Anxiety, Panic, Psychosis, Schizophrenia, Other - Past Surgical History Past Surgical History: Yes: None - Smoking History Smoking history: Never smoked Have you smoked in the past 12 months: No - Alcohol/Substance Use Hx Alcohol Use: No History of Substance Use: reports: None - Social History Usual Living Arrangement: Yes: With Parent ADL: Independent Occupation: [employer] History of Recent Travel: No Home Medications - Allergies Allergies/Adverse Reactions: Allergies Allergy/AdvReac Type Severity Reaction Status Date / Time No Known Allergies Allergy Verified 05/21/17 17:17 - Home Medications Home Medications: Ambulatory Orders Amlodipine Besylate [Norvasc -] 10 mg PO DAILY 11/16/12 Aspirin [ASA -] 81 mg PO HS 11/16/12 Labetalol HCl 200 mg PO BID 11/16/12 Cholecalciferol (Vitamin D3) [Vitamin D3] 4,000 unit PO DAILY 06/14/14 Quetiapine Fumarate "Xr" [Seroquel XR] 300 mg PO HS 03/21/15 Family Disease History - Family Disease History Family History: Denies Review of Systems - Review of Systems Constitutional: reports: No Symptoms Eyes: reports: No Symptoms HENT: reports: No Symptoms Neck: reports: No Symptoms Cardiovascular: reports: No Symptoms Respiratory: reports: No Symptoms Gastrointestinal: reports: No Symptoms Genitourinary: reports: No Symptoms Musculoskeletal: reports: No Symptoms Integumentary: reports: No Symptoms Neurological: reports: No Symptoms Endocrine: reports: No Symptoms Hematology/Lymphatic: reports: No Symptoms Psychiatric: reports: No Symptoms Physical Examination Constitutional: Yes: Well Nourished, No Distress, Obese Eyes: Yes: WNL, Conjunctiva Clear, EOM Intact HENT: Yes: WNL, Atraumatic, Normocephalic Neck: Yes: WNL, Supple, Trachea Midline Cardiovascular: Yes: WNL, Regular Rate and Rhythm, S1, S2 Respiratory: Yes: WNL, Regular, CTA Bilaterally Gastrointestinal: Yes: WNL, Normal Bowel Sounds, Soft ...Rectal Exam: Yes: Deferred Renal/: Yes: WNL Musculoskeletal: Yes: WNL Extremities: Yes: WNL Edema: No Peripheral Pulses WNL: Yes Peripheral Pulses: Left Radial: 4+, Right Radial: 4+, Left Doralis Pedis: 3+, Right Dorsalis Pedis: 3+, Left Femoral: 3+ Integumentary: Yes: WNL Neurological: Yes: WNL, Alert, Oriented ...Motor Strength: WNL Psychiatric: Yes: WNL, Alert, Oriented Labs: reviewed 08/05/17 Imaging - Results EKG: Image Reviewed, Other (nsr) Assessment/Plan patient is a 46 y/o male that presents for ect, labs and ekg reviewed patient is medically optimized for procedure informed consent, risks/benefits to be obtained by Dr Prather
[2017-12-09 10:29] VITALS: TEMP 98.1
[2017-12-09 11:16] VITALS: BP 138/93; PULSE 79
== END 2017-12-09 09:30 | disposition home or self-care (01) ==
LOC: FECT 05:38
PROVIDERS: ATTEND Psychiatry & Neurology Psychiatry
PROC: GZB4ZZZ Other Electroconvulsive Therapy (ICD-10-PCS; principal; 2017-12-09 07:30)
DX: F31.32 Bipolar disorder, current episode depressed, moderate (principal)
CPT/HCPCS: 90870; 94760

== ENCOUNTER 2017-12-23 05:36 | Day surgery (SDC) | payer OTHER ==
[2017-12-19 15:07] VITALS: BMI 37.0
[2017-12-23 08:07] VITALS: TEMP 98
[2017-12-23 08:32] VITALS: BP 125/85; PULSE 64
== END 2017-12-23 08:30 | disposition home or self-care (01) ==
LOC: FECT 05:36
PROVIDERS: ATTEND Psychiatry & Neurology Psychiatry
PROC: GZB4ZZZ Other Electroconvulsive Therapy (ICD-10-PCS; principal; 2017-12-23 07:00)
DX: F31.32 Bipolar disorder, current episode depressed, moderate (principal)
CPT/HCPCS: 90870; 94760

== ENCOUNTER 2018-01-06 05:38 | Day surgery (SDC) | payer OTHER ==
[2018-01-06 06:01] VITALS: BMI 36.9
[2018-01-06 08:18] VITALS: TEMP 97.7
[2018-01-06 08:37] VITALS: BP 127/78; PULSE 82
== END 2018-01-06 08:45 | disposition home or self-care (01) ==
LOC: FECT 05:38
PROVIDERS: ATTEND Psychiatry & Neurology Psychiatry
PROC: GZB4ZZZ Other Electroconvulsive Therapy (ICD-10-PCS; principal; 2018-01-06 07:00)
DX: F31.32 Bipolar disorder, current episode depressed, moderate (principal)
CPT/HCPCS: 90870; 94760

== ENCOUNTER 2018-01-16 05:38 | Day surgery (SDC) | payer OTHER ==
--- NOTE | 2018-01-16 07:58 | HP ---
Admitting History and Physical - Admission History of Present Illness: patient is a 47 y/o obese male with a past medical history of bipolar disorder, hypertension, and MILI (bipap). Patient presents for ect, patient has been undergoing ect since 2013. His last ect was 01/06. He report ongoing depressive symptoms for the past 2 weeks due to his unemployment. Patient denies any suicidal or homicidal ideation, visual or auditory hallucinations. He reports compliance with prescribed medications. History Source: Patient Limitations to Obtaining History: No Limitations - Past Medical History Cardiovascular: Yes: HTN. No: AFIB, Aneurysm, Aortic Insufficiency, Aortic Stenosis, CAD, CHF, Deep Vein Thrombosis, Hyperlipdemia, [place], Mitral Insufficiency, Mitral Stenosis, Murmur, Pulmonary Hypertension, Other Pulmonary: Yes: Sleep Apnea, Other. No: Asthma, Bronchitis, Cancer, COPD, O2 Dependent, Pneumonia, Previously Intubated, Pulmonary Embolus, Pulmonary Fibrosis Psych: Yes: Bipolar, Depression. No: Addictions, Anxiety, Panic, Psychosis, Schizophrenia, Other - Past Surgical History Past Surgical History: Yes: None - Smoking History Smoking history: Never smoked Have you smoked in the past 12 months: No - Alcohol/Substance Use Hx Alcohol Use: No History of Substance Use: reports: None - Social History Usual Living Arrangement: Yes: With Parent ADL: Independent Occupation: unemployed History of Recent Travel: No Home Medications - Allergies Allergies/Adverse Reactions: Allergies Allergy/AdvReac Type Severity Reaction Status Date / Time No Known Allergies Allergy Verified 01/15/18 10:19 - Home Medications Home Medications: Ambulatory Orders Amlodipine Besylate [Norvasc -] 10 mg PO DAILY 11/16/12 Aspirin [ASA -] 81 mg PO HS 11/16/12 Labetalol HCl 200 mg PO BID 11/16/12 Cholecalciferol (Vitamin D3) [Vitamin D3] 4,000 unit PO DAILY 06/14/14 Quetiapine Fumarate "Xr" [Seroquel XR] 300 mg PO HS 03/21/15 Multivitamin [One Daily] 1 each PO DAILY 01/16/18 Family Disease History - Family Disease History Family History: Denies Review of Systems - Review of Systems Constitutional: reports: No Symptoms Eyes: reports: No Symptoms HENT: reports: No Symptoms Neck: reports: No Symptoms Cardiovascular: reports: No Symptoms Respiratory: reports: No Symptoms Gastrointestinal: reports: No Symptoms Genitourinary: reports: No Symptoms Musculoskeletal: reports: No Symptoms Integumentary: reports: No Symptoms Neurological: reports: No Symptoms Endocrine: reports: No Symptoms Hematology/Lymphatic: reports: No Symptoms Psychiatric: reports: Depression Physical Examination Vital Signs: b/p 119/65 hr 85 rr 20 spo2 96% Constitutional: Yes: Well Nourished, No Distress, Calm, Obese Eyes: Yes: WNL, Conjunctiva Clear, EOM Intact HENT: Yes: WNL, Atraumatic, Normocephalic Neck: Yes: WNL, Supple, Trachea Midline Cardiovascular: Yes: WNL, Regular Rate and Rhythm, S1, S2 Respiratory: Yes: WNL, Regular, CTA Bilaterally Gastrointestinal: Yes: WNL, Normal Bowel Sounds, Soft ...Rectal Exam: Yes: Deferred Renal/: Yes: WNL Musculoskeletal: Yes: WNL Extremities: Yes: WNL Edema: No Peripheral Pulses WNL: Yes Peripheral Pulses: Left Radial: 4+, Right Radial: 4+, Left Doralis Pedis: 3+, Right Dorsalis Pedis: 3+, Left Femoral: 3+, Right Femoral: 3+ Integumentary: Yes: WNL Neurological: Yes: WNL, Alert, Oriented ...Motor Strength: WNL Psychiatric: Yes: WNL, Alert, Oriented Labs: reviewed 08/05/17 Imaging - Results EKG: Image Reviewed, Other (nsr) Assessment/Plan patient is a 47 y/o male that presents for ect labs and ekg reviewed patient is medically optimized for procedure informed consent, risks/benefits to be obtained by Dr Prather
[2018-01-16 08:12] VITALS: BP 119/85; BMI 37.6
[2018-01-16] MEDS ORDERED: ONDANSETRON 4 MG/2 ML VIAL IVPUSH PRN (09:31)
[2018-01-16 09:59] VITALS: PULSE 83; TEMP 98.3
== END 2018-01-16 10:15 | disposition home or self-care (01) ==
LOC: FECT 05:38
PROVIDERS: ATTEND Psychiatry & Neurology Psychiatry
PROC: GZB4ZZZ Other Electroconvulsive Therapy (ICD-10-PCS; principal; 2018-01-16 09:00)
DX: F31.32 Bipolar disorder, current episode depressed, moderate (principal)

== ENCOUNTER 2018-01-23 05:39 | Day surgery (SDC) | payer OTHER ==
[2018-01-23 06:16] VITALS: BMI 39.4
[2018-01-23 08:01] VITALS: TEMP 97.4
[2018-01-23 09:11] VITALS: BP 120/74; PULSE 78
== END 2018-01-23 08:30 | disposition home or self-care (01) ==
LOC: FECT 05:39
PROVIDERS: ATTEND Psychiatry & Neurology Psychiatry
PROC: GZB4ZZZ Other Electroconvulsive Therapy (ICD-10-PCS; principal; 2018-01-23 08:30)
DX: F31.62 Bipolar disorder, current episode mixed, moderate (principal)
CPT/HCPCS: 90870; 94760

== ENCOUNTER 2018-01-30 05:36 | Day surgery (SDC) | payer OTHER ==
[2018-01-30 07:07] VITALS: BMI 39.6
[2018-01-30 08:42] VITALS: TEMP 98.9
[2018-01-30 08:56] VITALS: BP 129/80; PULSE 88
[2018-01-30 09:30] LABS: EOS % 1.8 % (0-4.5); HEMATOCRIT 44.8 % (35.4-49); HEMOGLOBIN 15.4 GM/dl (11.7-16.9); LYMPH % 15.6 % (8-40); MCH 30.2 pg (25.7-33.7); MCHC 34.4 g/dl (32.0-35.9); MEAN CELL VOLUME 87.7 fl (80-96); MEAN PLT VOLUME 8.3 fl (7.5-11.1); MONO % 4.3 % (3.8-10.2); NEUT % 77.8 % (42.8-82.8); PLATELET COUNT 200 K/MM3 (134-434); RBC 5.11 M/mm3 (4.00-5.60); RDW 12.9 % (11.9-15.9); WHITE BLOOD COUNT 11.9 K/mm3 (4.0-10.8)
[2018-01-30 09:33] LABS: ALBUMIN 3.7 g/dl (3.5-5.0); ALK PHOS 64 U/L (32-92); ANION GAP 6 (8-16); BILIRUBIN,TOTAL 0.5 mg/dl (0.2-1.0); BLOOD UREA NITROGEN 21 mg/dl (7-18); CALCIUM 8.9 mg/dl (8.4-10.2); CHLORIDE 106 mmol/L (98-107); CO2 27 mmol/L (22-28); GLUCOSE,RANDOM 100 mg/dl (74-106); POTASSIUM 4.3 mmol/L (3.5-5.1); SGOT/AST 19 U/L (10-42); SGPT/ALT 27 U/L (10-40); SODIUM 139 mmol/L (136-145); TOT PROT 6.2 g/dl (6.4-8.3)
== END 2018-01-30 09:00 | disposition home or self-care (01) ==
LOC: FECT 05:36
PROVIDERS: ATTEND Psychiatry & Neurology Psychiatry
PROC: GZB4ZZZ Other Electroconvulsive Therapy (ICD-10-PCS; principal; 2018-01-30 09:00)
DX: F31.62 Bipolar disorder, current episode mixed, moderate (principal)
CPT/HCPCS: 36415; 80053; 85025; 90870; 94760

== ENCOUNTER 2018-02-03 05:36 | Day surgery (SDC) | payer OTHER ==
[2018-02-03 06:07] VITALS: BMI 39.5
[2018-02-03 08:17] VITALS: PULSE 84; TEMP 98.1
[2018-02-03 08:22] VITALS: BP 108/57
== END 2018-02-03 08:14 | disposition home or self-care (01) ==
LOC: FECT 05:36
PROVIDERS: ATTEND Psychiatry & Neurology Psychiatry
PROC: GZB4ZZZ Other Electroconvulsive Therapy (ICD-10-PCS; principal; 2018-02-03 07:45)
DX: F31.32 Bipolar disorder, current episode depressed, moderate (principal)
CPT/HCPCS: 90870; 94760

== ENCOUNTER 2018-02-06 05:37 | Day surgery (SDC) | payer OTHER ==
[2018-02-05 10:56] VITALS: BMI 39.4
[2018-02-06 08:13] VITALS: TEMP 97.9
[2018-02-06 08:53] VITALS: BP 138/84; PULSE 95
== END 2018-02-06 08:40 | disposition home or self-care (01) ==
LOC: FECT 05:37
PROVIDERS: ATTEND Psychiatry & Neurology Psychiatry
PROC: GZB4ZZZ Other Electroconvulsive Therapy (ICD-10-PCS; principal; 2018-02-06 08:15)
DX: F31.32 Bipolar disorder, current episode depressed, moderate (principal)
CPT/HCPCS: 90870; 94760

== ENCOUNTER 2018-02-13 05:31 | Day surgery (SDC) | payer OTHER ==
[2018-02-10 10:58] VITALS: BMI 40.3
[2018-02-13] MEDS ORDERED: ACETAMINOPHEN 325 MG TABLET (FP) PO PRN (07:42)
[2018-02-13] MEDS ORDERED: ONDANSETRON 4 MG/2 ML VIAL IVPUSH PRN (07:42)
[2018-02-13 08:03] VITALS: TEMP 97.6
[2018-02-13 08:24] VITALS: BP 122/88; PULSE 92
== END 2018-02-13 08:30 | disposition home or self-care (01) ==
LOC: FECT 05:31
PROVIDERS: ATTEND Psychiatry & Neurology Psychiatry
PROC: GZB4ZZZ Other Electroconvulsive Therapy (ICD-10-PCS; principal; 2018-02-13 07:15)
DX: F31.32 Bipolar disorder, current episode depressed, moderate (principal)
CPT/HCPCS: 90870; 94760

== ENCOUNTER 2018-02-20 05:32 | Day surgery (SDC) | payer OTHER ==
[2018-02-20 06:07] VITALS: BMI 40.6
[2018-02-20 08:04] VITALS: TEMP 97.8
[2018-02-20 08:31] VITALS: BP 114/70; PULSE 90
== END 2018-02-20 08:28 | disposition home or self-care (01) ==
LOC: FECT 05:32
PROVIDERS: ATTEND Psychiatry & Neurology Psychiatry
PROC: GZB4ZZZ Other Electroconvulsive Therapy (ICD-10-PCS; principal; 2018-02-20 07:00)
DX: F31.32 Bipolar disorder, current episode depressed, moderate (principal)
CPT/HCPCS: 90870; 94760

== ENCOUNTER 2018-02-27 05:34 | Day surgery (SDC) | payer OTHER ==
[2018-02-27 06:09] VITALS: BMI 40.1
[2018-02-27 08:00] VITALS: TEMP 97.9
[2018-02-27 08:24] VITALS: BP 135/89; PULSE 88
== END 2018-02-27 08:25 | disposition home or self-care (01) ==
LOC: FECT 05:34
PROVIDERS: ATTEND Psychiatry & Neurology Psychiatry
PROC: GZB4ZZZ Other Electroconvulsive Therapy (ICD-10-PCS; principal; 2018-02-27 08:00)
DX: F31.32 Bipolar disorder, current episode depressed, moderate (principal)
CPT/HCPCS: 90870; 94760

== ENCOUNTER 2018-03-06 05:36 | Day surgery (SDC) | payer OTHER ==
[2018-03-06 06:08] VITALS: BMI 40.6
[2018-03-09 11:34] VITALS: BP 143/88; PULSE 90; TEMP 97.9
== END 2018-03-06 08:20 | disposition home or self-care (01) ==
LOC: FECT 05:36
PROVIDERS: ATTEND Psychiatry & Neurology Psychiatry
PROC: GZB4ZZZ Other Electroconvulsive Therapy (ICD-10-PCS; principal; 2018-03-06 08:00)
DX: F31.32 Bipolar disorder, current episode depressed, moderate (principal)
CPT/HCPCS: 90870; 94760

== ENCOUNTER 2018-03-13 05:34 | Day surgery (SDC) | payer OTHER ==
[2018-03-13 06:16] VITALS: BMI 40.4
[2018-03-13 08:12] VITALS: TEMP 98
[2018-03-13 08:44] VITALS: BP 133/91; PULSE 97
== END 2018-03-13 08:25 | disposition home or self-care (01) ==
LOC: FECT 05:34
PROVIDERS: ATTEND Psychiatry & Neurology Psychiatry
PROC: GZB4ZZZ Other Electroconvulsive Therapy (ICD-10-PCS; principal; 2018-03-13 07:00)
DX: F31.32 Bipolar disorder, current episode depressed, moderate (principal)
CPT/HCPCS: 90870; 94760

== ENCOUNTER 2018-03-17 05:35 | Day surgery (SDC) | payer OTHER ==
[2018-03-17 06:13] VITALS: BMI 40.0
[2018-03-17 08:30] VITALS: TEMP 98
[2018-03-17 08:55] VITALS: BP 133/73; PULSE 91
== END 2018-03-17 09:00 | disposition home or self-care (01) ==
LOC: FECT 05:35
PROVIDERS: ATTEND Psychiatry & Neurology Psychiatry
PROC: GZB4ZZZ Other Electroconvulsive Therapy (ICD-10-PCS; principal; 2018-03-17 08:30)
DX: F31.32 Bipolar disorder, current episode depressed, moderate (principal)
CPT/HCPCS: 90870; 94760

== ENCOUNTER 2018-03-24 05:37 | Day surgery (SDC) | payer OTHER ==
[2018-03-24 07:16] VITALS: TEMP 98
--- NOTE | 2018-03-24 07:25 | HP ---
Admitting History and Physical - Admission History of Present Illness: patient is a 47 y/o obese male with a past medical history of bipolar disorder, hypertension, gely (bipap). Patient presents for ect, he has been undergoing ect since 2013, his last ect 03/17/18. He reports doing well and does report an improvement in depressive symptoms since starting ect. He denies any changes to his medications. Patient denies any recent illnesses or hospitalizations. He denies any suicidal or homicidal ideation, visual or auditory hallucinations. History Source: Patient Limitations to Obtaining History: No Limitations - Past Medical History Cardiovascular: Yes: HTN. No: AFIB, Aneurysm, Aortic Insufficiency, Aortic Stenosis, CAD, CHF, Deep Vein Thrombosis, Hyperlipdemia, [place], Mitral Insufficiency, Mitral Stenosis, Murmur, Pulmonary Hypertension, Other Pulmonary: Yes: Sleep Apnea, Other. No: Asthma, Bronchitis, Cancer, COPD, O2 Dependent, Pneumonia, Previously Intubated, Pulmonary Embolus, Pulmonary Fibrosis Psych: Yes: Bipolar, Depression. No: Addictions, Anxiety, Panic, Psychosis, Schizophrenia, Other - Past Surgical History Past Surgical History: Yes: None - Smoking History Smoking history: Never smoked Have you smoked in the past 12 months: No - Alcohol/Substance Use Hx Alcohol Use: No History of Substance Use: reports: None - Social History Usual Living Arrangement: Yes: With Parent ADL: Independent Occupation: unemployed History of Recent Travel: No Home Medications - Allergies Allergies/Adverse Reactions: Allergies Allergy/AdvReac Type Severity Reaction Status Date / Time No Known Allergies Allergy Verified 03/02/18 10:51 - Home Medications Home Medications: Ambulatory Orders Amlodipine Besylate [Norvasc -] 10 mg PO DAILY 11/16/12 Aspirin [ASA -] 81 mg PO HS 11/16/12 Labetalol HCl 200 mg PO BID 11/16/12 Cholecalciferol (Vitamin D3) [Vitamin D3] 4,000 unit PO DAILY 06/14/14 Quetiapine Fumarate "Xr" [Seroquel XR] 300 mg PO HS 03/21/15 Family Disease History - Family Disease History Family History: Denies Review of Systems - Review of Systems Constitutional: reports: No Symptoms Eyes: reports: No Symptoms HENT: reports: No Symptoms Neck: reports: No Symptoms Cardiovascular: reports: No Symptoms Respiratory: reports: No Symptoms Gastrointestinal: reports: No Symptoms Genitourinary: reports: No Symptoms Musculoskeletal: reports: No Symptoms Integumentary: reports: No Symptoms Neurological: reports: No Symptoms Endocrine: reports: No Symptoms Hematology/Lymphatic: reports: No Symptoms Psychiatric: reports: No Symptoms Physical Examination Vital Signs: Vital Signs Temperature 98.0 F 03/24/18 07:08 Pulse Rate 95 H 03/24/18 07:08 Respiratory Rate 18 03/24/18 07:08 Blood Pressure 134/94 03/24/18 07:08 O2 Sat by Pulse Oximetry (%) 97 03/24/18 07:08 Constitutional: Yes: Well Nourished, No Distress, Calm Eyes: Yes: WNL, Conjunctiva Clear, EOM Intact HENT: Yes: WNL, Atraumatic, Normocephalic Neck: Yes: WNL, Supple, Trachea Midline Cardiovascular: Yes: WNL, Regular Rate and Rhythm, S1, S2 Respiratory: Yes: WNL, Regular, CTA Bilaterally Gastrointestinal: Yes: WNL, Normal Bowel Sounds, Soft ...Rectal Exam: Yes: Deferred Renal/: Yes: WNL Breast(s): Yes: WNL Musculoskeletal: Yes: WNL Extremities: Yes: WNL Edema: No Peripheral Pulses WNL: No Integumentary: Yes: WNL Neurological: Yes: WNL, Alert, Oriented ...Motor Strength: WNL Psychiatric: Yes: WNL, Alert, Oriented Labs: labs reviewed 01/28 Imaging - Results EKG: Image Reviewed, Other (nsr normal axis) Assessment/Plan patient is a 47 y/o male that presents for ect, labs and ekg reviewed patient is medically optimized for procedure informed consent, risks/benefits to be obtained by Dr Prather
[2018-03-24 07:27] VITALS: BMI 40.2
[2018-03-24] MEDS ORDERED: ONDANSETRON 4 MG/2 ML VIAL IVPUSH PRN (08:54)
[2018-03-24] MEDS ORDERED: LACTATED RINGERS SOLUTION 1,000 ML IV SCH (09:00)
[2018-03-24 09:42] VITALS: BP 144/92; PULSE 87
== END 2018-03-24 09:40 | disposition home or self-care (01) ==
LOC: FECT 05:37
PROVIDERS: ATTEND Psychiatry & Neurology Psychiatry
PROC: GZB4ZZZ Other Electroconvulsive Therapy (ICD-10-PCS; principal; 2018-03-24 07:00)
DX: F31.32 Bipolar disorder, current episode depressed, moderate (principal)
CPT/HCPCS: 90870; 94760

== ENCOUNTER 2018-03-31 05:39 | Day surgery (SDC) | payer OTHER ==
[2018-03-31 06:22] VITALS: BMI 39.6
[2018-03-31 08:21] VITALS: BP 125/89; PULSE 89
[2018-03-31 08:26] VITALS: TEMP 98
== END 2018-03-31 08:20 | disposition home or self-care (01) ==
LOC: FECT 05:39
PROVIDERS: ATTEND Psychiatry & Neurology Psychiatry
PROC: GZB4ZZZ Other Electroconvulsive Therapy (ICD-10-PCS; principal; 2018-03-31 07:15)
DX: F31.32 Bipolar disorder, current episode depressed, moderate (principal)
CPT/HCPCS: 90870; 94760

== ENCOUNTER 2018-04-07 05:38 | Day surgery (SDC) | payer OTHER ==
[2018-04-07 06:14] VITALS: BMI 39.9
[2018-04-07 08:12] VITALS: TEMP 98.1
[2018-04-07 08:22] VITALS: BP 129/79; PULSE 86
[2018-04-07] MEDS ORDERED: ONDANSETRON 4 MG/2 ML VIAL IVPUSH PRN (11:13)
[2018-04-07] MEDS ORDERED: LACTATED RINGERS SOLUTION 1,000 ML IV SCH (11:15)
== END 2018-04-07 08:25 | disposition home or self-care (01) ==
LOC: FECT 05:38
PROVIDERS: ATTEND Psychiatry & Neurology Psychiatry
PROC: GZB4ZZZ Other Electroconvulsive Therapy (ICD-10-PCS; principal; 2018-04-07 07:30)
DX: F31.32 Bipolar disorder, current episode depressed, moderate (principal)
CPT/HCPCS: 90870; 94760

== ENCOUNTER 2018-04-14 05:35 | Day surgery (SDC) | payer OTHER ==
[2018-04-14 06:35] VITALS: TEMP 98; BMI 39.4
[2018-04-14 09:04] VITALS: BP 141/79; PULSE 89
--- NOTE | 2018-04-14 14:21 | EKG ---
Test Reason : Blood Pressure : / mmHG Vent. Rate : 089 BPM Atrial Rate : 089 BPM P-R Int : 184 ms QRS Dur : 090 ms QT Int : 358 ms P-R-T Axes : 050 004 005 degrees QTc Int : 435 ms NORMAL SINUS RHYTHM MODERATE VOLTAGE CRITERIA FOR LVH, MAY BE NORMAL VARIANT INFERIOR INFARCT , AGE UNDETERMINED ABNORMAL ECG WHEN COMPARED WITH ECG OF 14-OCT-2017 06:32, NO SIGNIFICANT CHANGE WAS FOUND Confirmed by Mayo Weiss MD ([id number]) on 04/14/2018 2:20:43 PM Referred By: Murphy Prather Confirmed By:Mayo Weiss MD
== END 2018-04-14 08:50 | disposition home or self-care (01) ==
LOC: FECT 05:35
PROVIDERS: ATTEND Psychiatry & Neurology Psychiatry
PROC: GZB4ZZZ Other Electroconvulsive Therapy (ICD-10-PCS; principal; 2018-04-14 07:45)
DX: F31.32 Bipolar disorder, current episode depressed, moderate (principal)
CPT/HCPCS: 90870; 93005; 94760

== ENCOUNTER 2018-04-21 05:37 | Day surgery (SDC) | payer OTHER ==
[2018-04-21 06:36] VITALS: TEMP 98.1; BMI 39.1
[2018-04-21 08:41] VITALS: BP 110/84; PULSE 89
== END 2018-04-21 08:35 | disposition home or self-care (01) ==
LOC: FECT 05:37
PROVIDERS: ATTEND Psychiatry & Neurology Psychiatry
PROC: GZB4ZZZ Other Electroconvulsive Therapy (ICD-10-PCS; principal; 2018-04-21 07:15)
DX: F31.32 Bipolar disorder, current episode depressed, moderate (principal)
CPT/HCPCS: 90870; 94760

== ENCOUNTER 2018-04-28 05:38 | Day surgery (SDC) | payer OTHER ==
[2018-04-28 07:33] VITALS: TEMP 98; BMI 38.7
--- NOTE | 2018-04-28 07:41 | HP ---
Admitting History and Physical - Admission History of Present Illness: Patient is a 47 y/o male with a past medical history of bipolar disorder, hypertension, and gely (bipap). Patient presents for ect, he has been undergoing ect since 2013, his last ect was 04/21/18. Patient reports feeling much improved, he reports a significant improvement in depressive symptoms since starting ect. Patient reports an intentional 2 lb weight loss within the past 2 weeks. He denies any recent illnesses or hospitalizations. Patient denies any suicidal or homicidal ideation, visual or auditory hallucinations. History Source: Patient Limitations to Obtaining History: No Limitations - Past Medical History Cardiovascular: Yes: HTN. No: AFIB, Aneurysm, Aortic Insufficiency, Aortic Stenosis, CAD, CHF, Deep Vein Thrombosis, Hyperlipdemia, [place], Mitral Insufficiency, Mitral Stenosis, Murmur, Pulmonary Hypertension, Other Pulmonary: Yes: Sleep Apnea, Other. No: Asthma, Bronchitis, Cancer, COPD, O2 Dependent, Pneumonia, Previously Intubated, Pulmonary Embolus, Pulmonary Fibrosis Psych: Yes: Bipolar, Depression. No: Addictions, Anxiety, Panic, Psychosis, Schizophrenia, Other - Past Surgical History Past Surgical History: Yes: None - Smoking History Smoking history: Never smoked Have you smoked in the past 12 months: No - Alcohol/Substance Use Hx Alcohol Use: No History of Substance Use: reports: None - Social History Usual Living Arrangement: Yes: With Parent ADL: Independent Occupation: unemployed History of Recent Travel: No Home Medications - Allergies Allergies/Adverse Reactions: Allergies Allergy/AdvReac Type Severity Reaction Status Date / Time No Known Allergies Allergy Verified 03/02/18 10:51 - Home Medications Home Medications: Ambulatory Orders Amlodipine Besylate [Norvasc -] 10 mg PO DAILY 11/16/12 Aspirin [ASA -] 81 mg PO HS 11/16/12 Labetalol HCl 200 mg PO BID 11/16/12 Cholecalciferol (Vitamin D3) [Vitamin D3] 4,000 unit PO DAILY 06/14/14 Quetiapine Fumarate "Xr" [Seroquel XR] 300 mg PO HS 03/21/15 Family Disease History - Family Disease History Family History: Denies Review of Systems - Review of Systems Constitutional: reports: No Symptoms Eyes: reports: No Symptoms HENT: reports: No Symptoms Neck: reports: No Symptoms Cardiovascular: reports: No Symptoms Respiratory: reports: No Symptoms Gastrointestinal: reports: No Symptoms Genitourinary: reports: No Symptoms Musculoskeletal: reports: No Symptoms Integumentary: reports: No Symptoms Neurological: reports: No Symptoms Endocrine: reports: No Symptoms Hematology/Lymphatic: reports: No Symptoms Psychiatric: reports: No Symptoms Physical Examination Constitutional: Yes: Well Nourished, No Distress, Calm, Obese Eyes: Yes: WNL, Conjunctiva Clear, EOM Intact HENT: Yes: WNL, Atraumatic, Normocephalic Neck: Yes: WNL, Supple, Trachea Midline Cardiovascular: Yes: WNL, Regular Rate and Rhythm, S1, S2 Respiratory: Yes: WNL, Regular, CTA Bilaterally Gastrointestinal: Yes: WNL, Normal Bowel Sounds, Soft ...Rectal Exam: Yes: Deferred Renal/: Yes: WNL Breast(s): Yes: WNL Musculoskeletal: Yes: WNL Extremities: Yes: WNL Edema: No Peripheral Pulses WNL: Yes Integumentary: Yes: WNL Neurological: Yes: WNL, Alert, Oriented ...Motor Strength: WNL Psychiatric: Yes: WNL, Alert, Oriented Labs: reviewed 01/28 Imaging - Results EKG: Image Reviewed, Other (nsr) Assessment/Plan patient is a 47 male that presents for ect, labs and ekg reviewed patient is medically optimized for procedure informed consent, risks/benefits to be obtained by Dr Prather
[2018-04-28] MEDS ORDERED: ONDANSETRON 4 MG/2 ML VIAL IVPUSH PRN (07:46)
[2018-04-28] MEDS ORDERED: ACETAMINOPHEN 325 MG TABLET (FP) PO PRN (07:46)
[2018-04-28] MEDS ORDERED: LACTATED RINGERS SOLUTION 1,000 ML IV SCH (08:00)
[2018-04-28 09:27] VITALS: BP 130/81; PULSE 88
== END 2018-04-28 09:30 | disposition home or self-care (01) ==
LOC: FECT 05:38
PROVIDERS: ATTEND Psychiatry & Neurology Psychiatry
PROC: GZB4ZZZ Other Electroconvulsive Therapy (ICD-10-PCS; principal; 2018-04-28 07:30)
DX: F31.32 Bipolar disorder, current episode depressed, moderate (principal)
CPT/HCPCS: 90870; 94760

== ENCOUNTER 2018-05-05 05:44 | Day surgery (SDC) | payer OTHER ==
[2018-05-05 06:30] VITALS: TEMP 98.2
[2018-05-05 06:36] VITALS: BMI 38.7
[2018-05-05 08:25] VITALS: BP 110/77; PULSE 88
== END 2018-05-05 08:25 | disposition home or self-care (01) ==
LOC: FECT 05:44
PROVIDERS: ATTEND Psychiatry & Neurology Psychiatry
PROC: GZB4ZZZ Other Electroconvulsive Therapy (ICD-10-PCS; principal; 2018-05-05 07:30)
DX: F31.32 Bipolar disorder, current episode depressed, moderate (principal)
CPT/HCPCS: 90870; 94760

== ENCOUNTER 2018-05-12 05:43 | Day surgery (SDC) | payer OTHER ==
[2018-05-12 06:42] VITALS: BMI 38.2
[2018-05-12 08:16] VITALS: TEMP 98.1
[2018-05-12 08:25] VITALS: BP 121/71; PULSE 88
== END 2018-05-12 08:30 | disposition home or self-care (01) ==
LOC: FECT 05:43
PROVIDERS: ATTEND Psychiatry & Neurology Psychiatry
PROC: GZB4ZZZ Other Electroconvulsive Therapy (ICD-10-PCS; principal; 2018-05-12 07:45)
DX: F31.89 Other bipolar disorder (principal)
CPT/HCPCS: 90870; 94760

== ENCOUNTER 2018-05-21 05:35 | Day surgery (SDC) | payer OTHER ==
[2018-05-21 06:41] VITALS: TEMP 98.6; BMI 38.1
[2018-05-21 08:28] VITALS: BP 121/76; PULSE 86
== END 2018-05-21 08:25 | disposition home or self-care (01) ==
LOC: FECT 05:35
PROVIDERS: ATTEND Psychiatry & Neurology Psychiatry
PROC: GZB4ZZZ Other Electroconvulsive Therapy (ICD-10-PCS; principal; 2018-05-21 08:15)
DX: F31.9 Bipolar disorder, unspecified (principal)
CPT/HCPCS: 90870; 94760

== ENCOUNTER 2018-06-02 05:47 | Day surgery (SDC) | payer OTHER ==
[2018-06-02 07:00] VITALS: BMI 38.1
--- NOTE | 2018-06-02 07:18 | HP ---
CHIEF COMPLAINT: Bipolar Disorder PCP: Dr. [place], [place] Primary psychiatrist: Dr. Richard HISTORY OF PRESENT ILLNESS: 47 year-old male with a PMH significant for HTN, MILI, and bipolar disorder. Patient has been undergoing ECT since 2008. He presents today for ECT. Recent events: None PAST MEDICAL HISTORY: Hypertension MILI (uses CPAP) Bipolar Disorder PAST SURGICAL HISTORY: None Social History: lives with parents; laid off from newspaper job Smoking: never Alcohol: no Drugs: no Family History: Allergies No Known Allergies Allergy (Verified 03/02/18 10:51) HOME MEDICATIONS: Home Medications Medication Instructions Recorded Amlodipine Besylate [Norvasc -] 10 mg PO DAILY 11/16/12 Aspirin [ASA -] 81 mg PO HS 11/16/12 Labetalol HCl 200 mg PO BID 11/16/12 Cholecalciferol (Vitamin D3) 4,000 unit PO DAILY 06/14/14 [Vitamin D3] Quetiapine Fumarate "Xr" [Seroquel 300 mg PO HS 03/21/15 XR] Polyethylene Glycol 3350 [Miralax 17 gm PO HS 05/05/18 119 gm Btl -] REVIEW OF SYSTEMS CONSTITUTIONAL: Absent: fever, chills, diaphoresis, generalized weakness, malaise, loss of appetite, weight change HEENT: Absent: rhinorrhea, nasal congestion, throat pain, throat swelling, difficulty swallowing, mouth swelling, ear pain, eye pain, visual changes CARDIOVASCULAR: Absent: chest pain, syncope, palpitations, irregular heart rate, lightheadedness , peripheral edema RESPIRATORY: Absent: cough, shortness of breath, dyspnea with exertion, orthopnea, wheezing, stridor, hemoptysis GASTROINTESTINAL: Absent: abdominal pain, abdominal distension, nausea, vomiting, diarrhea, constipation, melena, hematochezia GENITOURINARY: Absent: dysuria, frequency, urgency, hesitancy, hematuria, flank pain, genital pain MUSCULOSKELETAL: Absent: myalgia, arthralgia, joint swelling, back pain, neck pain SKIN: Absent: rash, itching, pallor HEMATOLOGIC/IMMUNOLOGIC: Absent: easy bleeding, easy bruising, lymphadenopathy, frequent infections ENDOCRINE: Absent: unexplained weight gain, unexplained weight loss, heat intolerance, cold intolerance NEUROLOGIC: Absent: headache, focal weakness or paresthesias, dizziness, unsteady gait, seizure, mental status changes, bladder or bowel incontinence PSYCHIATRIC: Absent: anxiety, depression, suicidal or homicidal ideation, hallucinations. PHYSICAL EXAMINATION Vital Signs - 24 hr 06/02/18 06:55 Temperature 98.0 F Pulse Rate 86 Respiratory 18 Rate Blood Pressure 120/71 GENERAL: Awake, alert, and fully oriented, in no acute distress. HEAD: Normal with no signs of trauma. LUNGS: Breath sounds equal, clear to auscultation bilaterally. No wheezes, and no crackles. No accessory muscle use. HEART: Regular rate and rhythm, normal S1 and S2 without murmur, rub or gallop. ABDOMEN: Soft, nontender, not distended, normoactive bowel sounds, no guarding, no rebound, no masses. No hepatomegaly or splenomegaly. MUSCULOSKELETAL: Normal range of motion at all joints. No bony deformities or tenderness. No CVA tenderness. UPPER EXTREMITIES: 2+ pulses, warm, well-perfused. No cyanosis. No clubbing. No peripheral edema. LOWER EXTREMITIES: 2+ pulses, warm, well-perfused. No calf tenderness. No peripheral edema. NEUROLOGICAL: Cranial nerves II-XII intact. Normal speech. Normal gait. PSYCHIATRIC: Cooperative. Good eye contact. Appropriate mood and affect. SKIN: Warm, dry, normal turgor ASSESSMENT/PLAN 47 year-old male with a PMH significant for HTN, MILI, and bipolar disorder. Presents today for ECT. Cardiac Hypertension --BP is well-controlled on current meds --Revised Cardiac Risk Index for Pre-Operative Risk: 0 points, 0.4% risk of major cardiac event Pulmonary --no pulmonary history Neurological --no neurological or neurosurgical history; no history of trauma Anesthesia --no known history of problems with anesthesia ECT is a low risk procedure. The relative benefits of the planned procedure outweigh the relative risks for this patient at this time. Visit type - Emergency Visit Emergency Visit: No - New Patient This patient is new to me today: Yes Date on this admission: 06/02/18 - Critical Care Critical Care patient: No
[2018-06-02 08:31] VITALS: PULSE 83
[2018-06-02 08:57] VITALS: BP 118/71; TEMP 97.9
== END 2018-06-02 09:17 | disposition home or self-care (01) ==
LOC: FECT 05:47
PROVIDERS: ATTEND Psychiatry & Neurology Psychiatry
PROC: GZB4ZZZ Other Electroconvulsive Therapy (ICD-10-PCS; principal; 2018-06-02 07:15)
DX: F31.32 Bipolar disorder, current episode depressed, moderate (principal)
CPT/HCPCS: 90870; 94760

== ENCOUNTER 2018-06-16 05:39 | Day surgery (SDC) | payer OTHER ==
[2018-06-16 06:35] VITALS: TEMP 98.1; BMI 37.4
[2018-06-16] MEDS ORDERED: ONDANSETRON 4 MG/2 ML VIAL IVPUSH PRN (07:17)
[2018-06-16 08:15] VITALS: BP 124/80; PULSE 89
== END 2018-06-16 08:20 | disposition home or self-care (01) ==
LOC: FECT 05:39
PROVIDERS: ATTEND Psychiatry & Neurology Psychiatry
PROC: GZB4ZZZ Other Electroconvulsive Therapy (ICD-10-PCS; principal; 2018-06-16 07:30)
DX: F31.9 Bipolar disorder, unspecified (principal)
CPT/HCPCS: 90870; 94760

== ENCOUNTER 2018-06-30 05:42 | Day surgery (SDC) | payer OTHER ==
[2018-06-30 06:30] VITALS: BMI 36.6
[2018-06-30 08:11] VITALS: PULSE 90; TEMP 97.6
[2018-06-30 08:27] VITALS: BP 117/84
== END 2018-06-30 08:33 | disposition home or self-care (01) ==
LOC: FECT 05:42
PROVIDERS: ATTEND Psychiatry & Neurology Psychiatry
PROC: GZB4ZZZ Other Electroconvulsive Therapy (ICD-10-PCS; principal; 2018-06-30 07:15)
DX: F31.9 Bipolar disorder, unspecified (principal)
CPT/HCPCS: 90870; 94760

== ENCOUNTER 2018-07-15 05:48 | Day surgery (SDC) | payer OTHER ==
[2018-07-15 07:03] VITALS: BMI 36.4
[2018-07-15] MEDS ORDERED: ONDANSETRON 4 MG/2 ML VIAL IVPUSH PRN (07:27)
[2018-07-15] MEDS ORDERED: LACTATED RINGERS SOLUTION 1,000 ML IV SCH (07:30)
[2018-07-15 10:05] VITALS: TEMP 98.3
[2018-07-15 10:06] VITALS: BP 122/70; PULSE 90
--- NOTE | 2018-07-16 18:31 | HP ---
CHIEF COMPLAINT: Bipolar Disorder PCP: Dr. [place]d [place], [place] Primary psychiatrist: Dr. Richard HISTORY OF PRESENT ILLNESS: 47 year-old male with a PMH significant for HTN, MILI, and bipolar disorder. Patient has been undergoing ECT since 2008. He presents today for ECT. Recent events: * None reported PAST MEDICAL HISTORY: Hypertension MILI (uses CPAP) Bipolar Disorder PAST SURGICAL HISTORY: None reported Allergies No Known Allergies Allergy (Verified 06/16/18 14:59) HOME MEDICATIONS: Home Medications Medication Instructions Recorded Amlodipine Besylate [Norvasc -] 10 mg PO DAILY 11/16/12 Aspirin [ASA -] 81 mg PO HS 11/16/12 Labetalol HCl 200 mg PO BID 11/16/12 Cholecalciferol (Vitamin D3) 4,000 unit PO DAILY 06/14/14 [Vitamin D3] Quetiapine Fumarate "Xr" [Seroquel 300 mg PO HS 03/21/15 XR] Polyethylene Glycol 3350 [Miralax 17 gm PO HS 05/05/18 119 gm Btl -] REVIEW OF SYSTEMS CONSTITUTIONAL: Absent: fever, chills, diaphoresis, generalized weakness, malaise, loss of appetite, weight change HEENT: Absent: rhinorrhea, nasal congestion, throat pain, throat swelling, difficulty swallowing, mouth swelling, ear pain, eye pain, visual changes CARDIOVASCULAR: Absent: chest pain, syncope, palpitations, irregular heart rate, lightheadedness , peripheral edema RESPIRATORY: Absent: cough, shortness of breath, dyspnea with exertion, orthopnea, wheezing, stridor, hemoptysis GASTROINTESTINAL: Absent: abdominal pain, abdominal distension, nausea, vomiting, diarrhea, constipation, melena, hematochezia GENITOURINARY: Absent: dysuria, frequency, urgency, hesitancy, hematuria, flank pain, genital pain MUSCULOSKELETAL: Absent: myalgia, arthralgia, joint swelling, back pain, neck pain SKIN: Absent: rash, itching, pallor HEMATOLOGIC/IMMUNOLOGIC: Absent: easy bleeding, easy bruising, lymphadenopathy, frequent infections ENDOCRINE: Absent: unexplained weight gain, unexplained weight loss, heat intolerance, cold intolerance NEUROLOGIC: Absent: headache, focal weakness or paresthesias, dizziness, unsteady gait, seizure, mental status changes, bladder or bowel incontinence PHYSICAL EXAMINATION Vital Signs Temperature 98.3 F 07/15/18 09:45 Pulse Rate 90 07/15/18 09:45 Respiratory Rate 18 07/15/18 09:45 Blood Pressure 122/70 07/15/18 09:45 O2 Sat by Pulse Oximetry (%) 96 07/15/18 09:38 GENERAL: Awake, alert, and fully oriented, in no acute distress. HEAD: Normal with no signs of trauma. EYES: Pupils equal, round and reactive to light, sclera anicteric, conjunctiva clear. LUNGS: Breath sounds equal, clear to auscultation bilaterally. No wheezes, and no crackles. No accessory muscle use. HEART: Regular rate and rhythm, normal S1 and S2 ABDOMEN: Soft, nontender, not distended MUSCULOSKELETAL: Normal range of motion at all joints. No bony deformities or tenderness. No CVA tenderness. UPPER EXTREMITIES: 2+ pulses, warm, well-perfused. No cyanosis. No clubbing. No peripheral edema. LOWER EXTREMITIES: 2+ pulses, warm, well-perfused. No calf tenderness. No peripheral edema. NEUROLOGICAL: Cranial nerves II-XII intact. Normal speech. ASSESSMENT/PLAN: 47 year-old male with a PMH significant for HTN, MILI, and bipolar disorder. Presents today for ECT. Cardiac --no cardiac history --Revised Cardiac Risk Index for Pre-Operative Risk: 0 points, 0.4% risk of major cardiac event Pulmonary --no pulmonary history Neurological --no neurological or neurosurgical history; no history of trauma Anesthesia --no reported problems with anesthesia ECT is a low risk procedure. The relative benefits of the planned procedure outweigh the relative risks for this patient at this time. Visit type - Emergency Visit Emergency Visit: No - New Patient This patient is new to me today: Yes Date on this admission: 07/16/18 - Critical Care Critical Care patient: No
== END 2018-07-15 09:45 | disposition home or self-care (01) ==
LOC: FECT 05:48
PROVIDERS: ATTEND Psychiatry & Neurology Psychiatry
PROC: GZB4ZZZ Other Electroconvulsive Therapy (ICD-10-PCS; principal; 2018-07-15 07:15)
DX: F31.9 Bipolar disorder, unspecified (principal)
CPT/HCPCS: 90870; 94760

== ENCOUNTER 2018-07-28 05:42 | Day surgery (SDC) | payer OTHER ==
[2018-07-28 06:30] VITALS: BMI 35.8
[2018-07-28] MEDS ORDERED: ONDANSETRON 4 MG/2 ML VIAL IVPUSH PRN (06:42)
[2018-07-28 08:19] VITALS: TEMP 97.8
[2018-07-28 08:27] VITALS: BP 118/76; PULSE 82
[2018-07-28 08:27] LABS: BASO % 0.5 % (0-2.0); EOS % 1.8 % (0-4.5); HEMOGLOBIN 15.4 GM/dl (11.7-16.9); LYMPH % 12.4 % (8-40); MCHC 33.3 g/dl (32.0-35.9); MEAN CELL VOLUME 89.9 fl (80-96); MEAN PLT VOLUME 8.1 fl (7.5-11.1); MONO % 2.9 % (3.8-10.2); NEUT % 82.4 % (42.8-82.8); PLATELET COUNT 206 K/MM3 (134-434); RBC 5.12 M/mm3 (4.00-5.60); RDW 12.1 % (11.9-15.9); WHITE BLOOD COUNT 6.7 K/mm3 (4.0-10.8)
[2018-07-28 08:39] LABS: ANION GAP 6 MMOL/L (8-16); BLOOD UREA NITROGEN 11 mg/dl (7-18); CALCIUM 9.4 mg/dl (8.4-10.2); CHLORIDE 104 mmol/L (98-107); CO2 28 mmol/L (22-28); CREATININE 0.9 mg/dl (0.6-1.3); GLUCOSE,RANDOM 105 mg/dl (74-106); MAGNESIUM 1.8 mg/dL (1.8-2.4); POTASSIUM 4.1 mmol/L (3.5-5.1); SODIUM 138 mmol/L (136-145); TOT PROT 6.7 g/dl (6.4-8.3)
[2018-07-28 08:40] LABS: ALBUMIN 4.1 g/dl (3.5-5.0); ALK PHOS 91 U/L (32-92); BILIRUBIN,TOTAL 0.7 mg/dl (0.2-1.0); SGOT/AST 16 U/L (10-42); SGPT/ALT 15 U/L (10-40)
== END 2018-07-28 08:28 | disposition home or self-care (01) ==
LOC: FECT 05:42
PROVIDERS: ATTEND Psychiatry & Neurology Psychiatry
PROC: GZB4ZZZ Other Electroconvulsive Therapy (ICD-10-PCS; principal; 2018-07-28 07:15)
DX: F31.89 Other bipolar disorder (principal)
CPT/HCPCS: 36415; 80053; 83735; 85025; 90870; 94760

== ENCOUNTER 2018-08-11 05:42 | Day surgery (SDC) | payer OTHER ==
[2018-08-11 06:38] VITALS: BMI 35.4
[2018-08-11 08:28] VITALS: TEMP 97.2
[2018-08-11 08:29] VITALS: BP 115/78; PULSE 92
[2018-08-11] MEDS ORDERED: ONDANSETRON 4 MG/2 ML VIAL IVPUSH PRN (08:46)
[2018-08-11] MEDS ORDERED: ACETAMINOPHEN 325 MG TABLET (FP) PO PRN (08:46)
== END 2018-08-11 08:31 | disposition home or self-care (01) ==
LOC: FECT 05:42
PROVIDERS: ATTEND Psychiatry & Neurology Psychiatry
PROC: GZB4ZZZ Other Electroconvulsive Therapy (ICD-10-PCS; principal; 2018-08-11 07:15)
DX: F32.9 Major depressive disorder, single episode, unspecified (principal)
CPT/HCPCS: 90870; 94760

== ENCOUNTER 2018-08-27 05:46 | Day surgery (SDC) | payer OTHER ==
[2018-08-27 07:09] VITALS: BMI 35.8
[2018-08-27 08:41] VITALS: TEMP 98
[2018-08-27 09:05] VITALS: BP 121/80; PULSE 89
--- NOTE | 2018-08-28 16:26 | HP ---
CHIEF COMPLAINT: Bipolar Disorder PCP: Dr. [place], [place] Primary psychiatrist: Dr. Richard HISTORY OF PRESENT ILLNESS: 47 year-old male with a PMH significant for HTN, MILI, and bipolar disorder. Patient has been undergoing ECT since 2008. He presents today for ECT. Recent events: * Lost 110 pounds over past year; continues to do well PAST MEDICAL HISTORY: Hypertension MILI (uses CPAP) Bipolar Disorder PAST SURGICAL HISTORY: None reported Allergies No Known Allergies Allergy (Verified 06/16/18 14:59) HOME MEDICATIONS: Home Medications Medication Instructions Recorded Amlodipine Besylate [Norvasc -] 10 mg PO DAILY 11/16/12 Aspirin [ASA -] 81 mg PO HS 11/16/12 Labetalol HCl 200 mg PO BID 11/16/12 Cholecalciferol (Vitamin D3) 4,000 unit PO DAILY 06/14/14 [Vitamin D3] Quetiapine Fumarate "Xr" [Seroquel 300 mg PO HS 03/21/15 XR] Polyethylene Glycol 3350 [Miralax 17 gm PO HS 05/05/18 119 gm Btl -] REVIEW OF SYSTEMS CONSTITUTIONAL: Absent: fever, chills, diaphoresis, generalized weakness, malaise, loss of appetite, weight change HEENT: Absent: rhinorrhea, nasal congestion, throat pain, throat swelling, difficulty swallowing, mouth swelling, ear pain, eye pain, visual changes CARDIOVASCULAR: Absent: chest pain, syncope, palpitations, irregular heart rate, lightheadedness , peripheral edema RESPIRATORY: Absent: cough, shortness of breath, dyspnea with exertion, orthopnea, wheezing, stridor, hemoptysis GASTROINTESTINAL: Absent: abdominal pain, abdominal distension, nausea, vomiting, diarrhea, constipation, melena, hematochezia GENITOURINARY: Absent: dysuria, frequency, urgency, hesitancy, hematuria, flank pain, genital pain MUSCULOSKELETAL: Absent: myalgia, arthralgia, joint swelling, back pain, neck pain SKIN: Absent: rash, itching, pallor HEMATOLOGIC/IMMUNOLOGIC: Absent: easy bleeding, easy bruising, lymphadenopathy, frequent infections ENDOCRINE: Absent: unexplained weight gain, unexplained weight loss, heat intolerance, cold intolerance NEUROLOGIC: Absent: headache, focal weakness or paresthesias, dizziness, unsteady gait, seizure, mental status changes, bladder or bowel incontinence PHYSICAL EXAMINATION GENERAL: Awake, alert, and fully oriented, in no acute distress. HEAD: Normal with no signs of trauma. EYES: Pupils equal, round and reactive to light, sclera anicteric, conjunctiva clear. LUNGS: Breath sounds equal, clear to auscultation bilaterally. No wheezes, and no crackles. No accessory muscle use. HEART: Regular rate and rhythm, normal S1 and S2 ABDOMEN: Soft, nontender, not distended MUSCULOSKELETAL: Normal range of motion at all joints. No bony deformities or tenderness. No CVA tenderness. UPPER EXTREMITIES: 2+ pulses, warm, well-perfused. No cyanosis. No clubbing. No peripheral edema. LOWER EXTREMITIES: 2+ pulses, warm, well-perfused. No calf tenderness. No peripheral edema. NEUROLOGICAL: Cranial nerves II-XII intact. Normal speech. ASSESSMENT/PLAN: 47 year-old male with a PMH significant for HTN, MILI, and bipolar disorder. Presents today for ECT. Cardiac --no cardiac history --Revised Cardiac Risk Index for Pre-Operative Risk: 0 points, 0.4% risk of major cardiac event Pulmonary --no pulmonary history Neurological --no neurological or neurosurgical history; no history of trauma Anesthesia --no reported problems with anesthesia ECT is a low risk procedure. The relative benefits of the planned procedure outweigh the relative risks for this patient at this time. Visit type - Emergency Visit Emergency Visit: No - New Patient This patient is new to me today: Yes Date on this admission: 08/28/18 - Critical Care Critical Care patient: No
== END 2018-08-27 09:00 | disposition home or self-care (01) ==
LOC: FECT 05:46
PROVIDERS: ATTEND Psychiatry & Neurology Psychiatry
PROC: GZB4ZZZ Other Electroconvulsive Therapy (ICD-10-PCS; principal; 2018-08-27 07:30)
DX: F31.9 Bipolar disorder, unspecified (principal)
CPT/HCPCS: 90870; 94760

== ENCOUNTER 2018-09-08 05:43 | Day surgery (SDC) | payer OTHER ==
[2018-09-08 06:34] VITALS: BMI 35.9
[2018-09-08] MEDS ORDERED: PROMETHAZINE HCL 25 MG/1 ML VIAL IVPUSH PRN (07:45)
[2018-09-08] MEDS ORDERED: ONDANSETRON 4 MG/2 ML VIAL IVPUSH PRN (07:45)
[2018-09-08 08:09] VITALS: TEMP 98.1
[2018-09-08 08:37] VITALS: BP 123/77; PULSE 88
== END 2018-09-08 08:35 | disposition home or self-care (01) ==
LOC: FECT 05:43
PROVIDERS: ATTEND Psychiatry & Neurology Psychiatry
PROC: GZB4ZZZ Other Electroconvulsive Therapy (ICD-10-PCS; principal; 2018-09-08 07:00)
DX: F31.89 Other bipolar disorder (principal)
CPT/HCPCS: 90870; 94760

== ENCOUNTER 2018-09-22 05:46 | Day surgery (SDC) | payer OTHER ==
[2018-09-22 06:37] VITALS: BMI 36.0
[2018-09-22] MEDS ORDERED: ACETAMINOPHEN 325 MG TABLET (FP) PO PRN (07:21)
[2018-09-22] MEDS ORDERED: ONDANSETRON 4 MG/2 ML VIAL IVPUSH PRN (07:21)
[2018-09-22 08:16] VITALS: TEMP 97.6
--- NOTE | 2018-09-22 08:37 | HP ---
CHIEF COMPLAINT: PCP: Primary Psychiatrist: HISTORY OF PRESENT ILLNESS: Recent Events: * started Crestor 10mg daily PAST MEDICAL HISTORY: PAST SURGICAL HISTORY: Social History: Smoking: Alcohol: Drugs: Allergies No Known Allergies Allergy (Verified 06/16/18 14:59) HOME MEDICATIONS: Home Medications Medication Instructions Recorded Amlodipine Besylate [Norvasc -] 10 mg PO DAILY 11/16/12 Aspirin [ASA -] 81 mg PO HS 11/16/12 Labetalol HCl 200 mg PO BID 11/16/12 Cholecalciferol (Vitamin D3) 4,000 unit PO DAILY 06/14/14 [Vitamin D3] Quetiapine Fumarate "Xr" [Seroquel 300 mg PO HS 03/21/15 XR] Polyethylene Glycol 3350 [Miralax 17 gm PO HS 05/05/18 119 gm Btl -] Rosuvastatin Calcium [Crestor] 10 mg PO HS 09/22/18 REVIEW OF SYSTEMS CONSTITUTIONAL: Absent: fever, chills, diaphoresis, generalized weakness, malaise, loss of appetite, weight change HEENT: Absent: rhinorrhea, nasal congestion, throat pain, throat swelling, difficulty swallowing, mouth swelling, ear pain, eye pain, visual changes CARDIOVASCULAR: Absent: chest pain, syncope, palpitations, irregular heart rate, lightheadedness , peripheral edema RESPIRATORY: Absent: cough, shortness of breath, dyspnea with exertion, orthopnea, wheezing, stridor, hemoptysis GASTROINTESTINAL: Absent: abdominal pain, abdominal distension, nausea, vomiting, diarrhea, constipation, melena, hematochezia GENITOURINARY: Absent: dysuria, frequency, urgency, hesitancy, hematuria, flank pain, genital pain MUSCULOSKELETAL: Absent: myalgia, arthralgia, joint swelling, back pain, neck pain SKIN: Absent: rash, itching, pallor HEMATOLOGIC/IMMUNOLOGIC: Absent: easy bleeding, easy bruising, lymphadenopathy, frequent infections ENDOCRINE: Absent: unexplained weight gain, unexplained weight loss, heat intolerance, cold intolerance NEUROLOGIC: Absent: headache, focal weakness or paresthesias, dizziness, unsteady gait, seizure, mental status changes, bladder or bowel incontinence PHYSICAL EXAMINATION Vital Signs - 24 hr 09/22/18 09/22/18 09/22/18 06:26 07:30 07:35 Temperature 98.5 F Pulse Rate 88 90 89 Respiratory 18 24 H 14 Rate Blood Pressure 139/83 117/78 123/70 O2 Sat by Pulse 99 93 L 94 L Oximetry (%) 09/22/18 09/22/18 09/22/18 07:40 07:45 08:05 Temperature Pulse Rate 88 93 H 87 Respiratory 23 H 14 14 Rate Blood Pressure 126/82 115/72 118/80 O2 Sat by Pulse 92 L 93 L Oximetry (%) 09/22/18 08:10 Temperature 97.6 F Pulse Rate 84 Respiratory 18 Rate Blood Pressure 126/65 O2 Sat by Pulse 95 Oximetry (%) GENERAL: Awake, alert, and fully oriented, in no acute distress. HEAD: Normal with no signs of trauma. EYES: Pupils equal, round and reactive to light, sclera anicteric, conjunctiva clear. LUNGS: Breath sounds equal, clear to auscultation bilaterally. No wheezes, and no crackles. No accessory muscle use. HEART: Regular rate and rhythm, normal S1 and S2 ABDOMEN: Soft, nontender, not distended MUSCULOSKELETAL: Normal range of motion at all joints. No bony deformities or tenderness. No CVA tenderness. UPPER EXTREMITIES: 2+ pulses, warm, well-perfused. No cyanosis. No clubbing. No peripheral edema. LOWER EXTREMITIES: 2+ pulses, warm, well-perfused. No calf tenderness. No peripheral edema. NEUROLOGICAL: Cranial nerves II-XII intact. Normal speech. ASSESSMENT/PLAN: Cardiac --no cardiac history --Revised Cardiac Risk Index for Pre-Operative Risk: 0 points, 0.4% risk of major cardiac event Pulmonary --no pulmonary history Neurological --no neurological or neurosurgical history; no history of trauma Anesthesia --no reported problems with anesthesia ECT is a low risk procedure. The relative benefits of the planned procedure outweigh the relative risks for this patient at this time.
[2018-09-22 08:45] VITALS: BP 132/72; PULSE 87
== END 2018-09-22 08:45 | disposition home or self-care (01) ==
LOC: FECT 05:46
PROVIDERS: ATTEND Psychiatry & Neurology Psychiatry
PROC: GZB4ZZZ Other Electroconvulsive Therapy (ICD-10-PCS; principal; 2018-09-22 07:30)
DX: F31.89 Other bipolar disorder (principal)
CPT/HCPCS: 90870; 94760

== ENCOUNTER 2018-10-06 05:37 | Day surgery (SDC) | payer OTHER ==
[2018-10-06 06:41] VITALS: TEMP 98.2; BMI 36.8
[2018-10-06 08:36] VITALS: BP 131/89; PULSE 86
== END 2018-10-06 08:40 | disposition home or self-care (01) ==
LOC: FECT 05:37
PROVIDERS: ATTEND Psychiatry & Neurology Psychiatry
PROC: GZB4ZZZ Other Electroconvulsive Therapy (ICD-10-PCS; principal; 2018-10-06 07:15)
DX: F31.89 Other bipolar disorder (principal)
CPT/HCPCS: 90870; 94760

== ENCOUNTER 2018-10-20 05:40 | Day surgery (SDC) | payer OTHER ==
[2018-10-20 07:14] VITALS: TEMP 98; BMI 35.9
[2018-10-20] MEDS ORDERED: ONDANSETRON 4 MG/2 ML VIAL IVPUSH PRN (08:50)
[2018-10-20] MEDS ORDERED: LACTATED RINGERS SOLUTION 1,000 ML IV SCH (09:00)
[2018-10-20 09:30] VITALS: BP 122/77; PULSE 89
--- NOTE | 2018-10-21 12:29 | EKG ---
Test Reason : Blood Pressure : / mmHG Vent. Rate : 091 BPM Atrial Rate : 273 BPM P-R Int : 000 ms QRS Dur : 092 ms QT Int : 358 ms P-R-T Axes : 051 001 012 degrees QTc Int : 440 ms ATRIAL FLUTTER WITH 3:1 A-V CONDUCTION MODERATE VOLTAGE CRITERIA FOR LVH, MAY BE NORMAL VARIANT ABNORMAL ECG WHEN COMPARED WITH ECG OF 14-APR-2018 08:48, ATRIAL FLUTTER HAS REPLACED SINUS RHYTHM Confirmed by CHRISTEN STOKES, LAURA ([id number]) on 10/21/2018 12:29:17 PM Referred By: Murphy Prather Confirmed By:LAURA VELÁSQUEZ MD
== END 2018-10-20 09:30 | disposition home or self-care (01) ==
LOC: FECT 05:40
PROVIDERS: ATTEND Psychiatry & Neurology Psychiatry
PROC: GZB4ZZZ Other Electroconvulsive Therapy (ICD-10-PCS; principal; 2018-10-20 07:00)
DX: F31.62 Bipolar disorder, current episode mixed, moderate (principal)
CPT/HCPCS: 90870; 93005; 94760

== ENCOUNTER 2018-11-03 05:39 | Day surgery (SDC) | payer OTHER ==
[2018-11-03 06:48] VITALS: BMI 36.4
[2018-11-03] MEDS ORDERED: ONDANSETRON 4 MG/2 ML VIAL IVPUSH PRN (08:39)
[2018-11-03 08:40] VITALS: TEMP 98.6
[2018-11-03 08:42] VITALS: BP 120/64; PULSE 84
[2018-11-03] MEDS ORDERED: LACTATED RINGERS SOLUTION 1,000 ML IV SCH (08:45)
--- NOTE | 2018-11-03 09:15 | HP ---
CHIEF COMPLAINT: Bipolar Disorder PCP: Dr. [place]d [place], [place] Primary psychiatrist: Dr. Richard HISTORY OF PRESENT ILLNESS: 47 year-old male with a PMH significant for HTN, MILI, and bipolar disorder. Patient has been undergoing ECT since 2008. He presents today for ECT. Recent events: * None reported PAST MEDICAL HISTORY: Hypertension MILI (uses CPAP) Bipolar Disorder Allergies No Known Allergies Allergy (Verified 10/15/18 11:47) HOME MEDICATIONS: Home Medications Medication Instructions Recorded Amlodipine Besylate [Norvasc -] 10 mg PO DAILY 11/16/12 Aspirin [ASA -] 81 mg PO HS 11/16/12 Labetalol HCl 200 mg PO BID 11/16/12 Cholecalciferol (Vitamin D3) 4,000 unit PO DAILY 06/14/14 [Vitamin D3] Quetiapine Fumarate "Xr" [Seroquel 300 mg PO HS 03/21/15 XR] Polyethylene Glycol 3350 [Miralax 17 gm PO HS 05/05/18 119 gm Btl -] Rosuvastatin Calcium [Crestor] 10 mg PO HS 09/22/18 REVIEW OF SYSTEMS CONSTITUTIONAL: Absent: fever, chills, diaphoresis, generalized weakness, malaise, loss of appetite, weight change HEENT: Absent: rhinorrhea, nasal congestion, throat pain, throat swelling, difficulty swallowing, mouth swelling, ear pain, eye pain, visual changes CARDIOVASCULAR: Absent: chest pain, syncope, palpitations, irregular heart rate, lightheadedness , peripheral edema RESPIRATORY: Absent: cough, shortness of breath, dyspnea with exertion, orthopnea, wheezing, stridor, hemoptysis GASTROINTESTINAL: Absent: abdominal pain, abdominal distension, nausea, vomiting, diarrhea, constipation, melena, hematochezia GENITOURINARY: Absent: dysuria, frequency, urgency, hesitancy, hematuria, flank pain, genital pain MUSCULOSKELETAL: Absent: myalgia, arthralgia, joint swelling, back pain, neck pain SKIN: Absent: rash, itching, pallor HEMATOLOGIC/IMMUNOLOGIC: Absent: easy bleeding, easy bruising, lymphadenopathy, frequent infections ENDOCRINE: Absent: unexplained weight gain, unexplained weight loss, heat intolerance, cold intolerance NEUROLOGIC: Absent: headache, focal weakness or paresthesias, dizziness, unsteady gait, seizure, mental status changes, bladder or bowel incontinence PHYSICAL EXAMINATION Vital Signs - 24 hr 0411/03/18 11/03/18 06:45 07:45 07:50 Temperature 98.5 F Pulse Rate 82 91 H 88 Respiratory 18 16 16 Rate Blood Pressure 131/82 119/72 118/72 O2 Sat by Pulse 97 94 L 96 Oximetry (%) 11/03/18 11/03/18 11/03/18 07:55 08:00 08:05 Temperature Pulse Rate 88 86 89 Respiratory 18 18 18 Rate Blood Pressure 1114/68 H 123/78 124/82 O2 Sat by Pulse 95 97 95 Oximetry (%) 11/03/18 11/03/18 11/03/18 08:09 08:15 08:40 Temperature 98.6 F 98.6 F Pulse Rate 89 80 84 Respiratory 18 18 18 Rate Blood Pressure 124/82 111/64 120/64 O2 Sat by Pulse 95 Oximetry (%) GENERAL: Awake, alert, and fully oriented, in no acute distress. HEAD: Normal with no signs of trauma. EYES: Pupils equal, round and reactive to light, sclera anicteric, conjunctiva clear. LUNGS: Breath sounds equal, clear to auscultation bilaterally. No wheezes, and no crackles. No accessory muscle use. HEART: Regular rate and rhythm, normal S1 and S2 ABDOMEN: Soft, nontender, not distended MUSCULOSKELETAL: Normal range of motion at all joints. No bony deformities or tenderness. No CVA tenderness. UPPER EXTREMITIES: 2+ pulses, warm, well-perfused. No cyanosis. No clubbing. No peripheral edema. LOWER EXTREMITIES: 2+ pulses, warm, well-perfused. No calf tenderness. No peripheral edema. NEUROLOGICAL: Cranial nerves II-XII intact. Normal speech. ASSESSMENT/PLAN: 47 year-old male with a PMH significant for HTN, MILI, and bipolar disorder. Presents today for ECT. Cardiac --no cardiac history --Revised Cardiac Risk Index for Pre-Operative Risk: 0 points, 0.4% risk of major cardiac event Pulmonary --no pulmonary history Neurological --no neurological or neurosurgical history; no history of trauma Anesthesia --no reported problems with anesthesia ECT is a low risk procedure. The relative benefits of the planned procedure outweigh the relative risks for this patient at this time. Visit type - Emergency Visit Emergency Visit: No - New Patient This patient is new to me today: Yes Date on this admission: 11/03/18 - Critical Care Critical Care patient: No
== END 2018-11-03 08:40 | disposition home or self-care (01) ==
LOC: FECT 05:39
PROVIDERS: ATTEND Psychiatry & Neurology Psychiatry
PROC: GZB4ZZZ Other Electroconvulsive Therapy (ICD-10-PCS; principal; 2018-11-03 07:00)
DX: F31.62 Bipolar disorder, current episode mixed, moderate (principal)
CPT/HCPCS: 90870; 94760

== ENCOUNTER 2018-11-24 05:42 | Day surgery (SDC) | payer OTHER | END 2018-11-24 08:50 | disposition home or self-care (01) | LOC: FECT 05:42 | PROC: GZB4ZZZ Other Electroconvulsive Therapy (ICD-10-PCS; principal; 2018-11-24 07:15) | DX: F31.89 Other bipolar disorder (principal) ==

== ENCOUNTER 2018-11-27 05:43 | Day surgery (SDC) | payer OTHER ==
[2018-11-27 06:25] VITALS: TEMP 97.8; BMI 37.8
[2018-11-27 08:31] VITALS: BP 119/76; PULSE 76
[2018-11-27] MEDS ORDERED: ONDANSETRON 4 MG/2 ML VIAL IVPUSH PRN (09:42)
[2018-11-27] MEDS ORDERED: LACTATED RINGERS SOLUTION 1,000 ML IV SCH (09:45)
== END 2018-11-27 08:46 | disposition home or self-care (01) ==
LOC: FECT 05:43
PROVIDERS: ATTEND Psychiatry & Neurology Psychiatry
PROC: GZB4ZZZ Other Electroconvulsive Therapy (ICD-10-PCS; principal; 2018-11-27 07:30)
DX: F31.9 Bipolar disorder, unspecified (principal)
CPT/HCPCS: 90870; 94760

== ENCOUNTER 2018-12-01 05:41 | Day surgery (SDC) | payer OTHER ==
[2018-12-01 06:32] VITALS: BMI 38.0
[2018-12-01 07:57] VITALS: TEMP 97.6
[2018-12-01 08:47] VITALS: BP 110/70; PULSE 82
--- NOTE | 2018-12-03 09:53 | HP ---
CHIEF COMPLAINT: Bipolar Disorder PCP: Dr. [place], [place] Primary psychiatrist: Dr. Richard HISTORY OF PRESENT ILLNESS: 47 year-old male with a PMH significant for HTN, MILI, and bipolar disorder. Patient has been undergoing ECT since 2008. He presents today for ECT. Recent events: * None reported Allergies No Known Allergies Allergy (Verified 10/15/18 11:47) HOME MEDICATIONS: Home Medications Medication Instructions Recorded Amlodipine Besylate [Norvasc -] 10 mg PO DAILY 11/16/12 Aspirin [ASA -] 81 mg PO HS 11/16/12 Labetalol HCl 200 mg PO BID 11/16/12 Cholecalciferol (Vitamin D3) 4,000 unit PO DAILY 06/14/14 [Vitamin D3] Quetiapine Fumarate "Xr" [Seroquel 300 mg PO HS 03/21/15 XR] Polyethylene Glycol 3350 [Miralax 17 gm PO HS 05/05/18 119 gm Btl -] Rosuvastatin Calcium [Crestor] 10 mg PO HS 09/22/18 REVIEW OF SYSTEMS CONSTITUTIONAL: Absent: fever, chills, diaphoresis, generalized weakness, malaise, loss of appetite, weight change HEENT: Absent: rhinorrhea, nasal congestion, throat pain, throat swelling, difficulty swallowing, mouth swelling, ear pain, eye pain, visual changes CARDIOVASCULAR: Absent: chest pain, syncope, palpitations, irregular heart rate, lightheadedness , peripheral edema RESPIRATORY: Absent: cough, shortness of breath, dyspnea with exertion, orthopnea, wheezing, stridor, hemoptysis GASTROINTESTINAL: Absent: abdominal pain, abdominal distension, nausea, vomiting, diarrhea, constipation, melena, hematochezia GENITOURINARY: Absent: dysuria, frequency, urgency, hesitancy, hematuria, flank pain, genital pain MUSCULOSKELETAL: Absent: myalgia, arthralgia, joint swelling, back pain, neck pain SKIN: Absent: rash, itching, pallor HEMATOLOGIC/IMMUNOLOGIC: Absent: easy bleeding, easy bruising, lymphadenopathy, frequent infections ENDOCRINE: Absent: unexplained weight gain, unexplained weight loss, heat intolerance, cold intolerance NEUROLOGIC: Absent: headache, focal weakness or paresthesias, dizziness, unsteady gait, seizure, mental status changes, bladder or bowel incontinence PHYSICAL EXAMINATION Vital Signs Temperature 97.6 F 12/01/18 08:47 Pulse Rate 82 12/01/18 08:47 Respiratory Rate 18 12/01/18 08:47 Blood Pressure 110/70 12/01/18 08:47 O2 Sat by Pulse Oximetry (%) 94 L 12/01/18 08:20 GENERAL: Awake, alert, and fully oriented, in no acute distress. HEAD: Normal with no signs of trauma. EYES: Pupils equal, round and reactive to light, sclera anicteric, conjunctiva clear. LUNGS: Breath sounds equal, clear to auscultation bilaterally. No wheezes, and no crackles. No accessory muscle use. HEART: Regular rate and rhythm, normal S1 and S2 ABDOMEN: Soft, nontender, not distended MUSCULOSKELETAL: Normal range of motion at all joints. No bony deformities or tenderness. No CVA tenderness. UPPER EXTREMITIES: 2+ pulses, warm, well-perfused. No cyanosis. No clubbing. No peripheral edema. LOWER EXTREMITIES: 2+ pulses, warm, well-perfused. No calf tenderness. No peripheral edema. NEUROLOGICAL: Cranial nerves II-XII intact. Normal speech. ASSESSMENT/PLAN: 47 year-old male with a PMH significant for HTN, MILI, and bipolar disorder. Presents today for ECT. Cardiac --no cardiac history --Revised Cardiac Risk Index for Pre-Operative Risk: 0 points, 0.4% risk of major cardiac event Pulmonary --no pulmonary history Neurological --no neurological or neurosurgical history; no history of trauma Anesthesia --no reported problems with anesthesia ECT is a low risk procedure. The relative benefits of the planned procedure outweigh the relative risks for this patient at this time. Visit type - Emergency Visit Emergency Visit: No - New Patient This patient is new to me today: Yes Date on this admission: 12/03/18 - Critical Care Critical Care patient: No
== END 2018-12-01 08:48 | disposition home or self-care (01) ==
LOC: FECT 05:41
PROVIDERS: ATTEND Psychiatry & Neurology Psychiatry
PROC: GZB4ZZZ Other Electroconvulsive Therapy (ICD-10-PCS; principal; 2018-12-01 07:45)
DX: F31.89 Other bipolar disorder (principal)
CPT/HCPCS: 90870; 94760

== ENCOUNTER 2018-12-04 05:47 | Day surgery (SDC) | payer OTHER | END 2018-12-04 08:20 | disposition home or self-care (01) | LOC: FASU 05:47 ==

== ENCOUNTER 2018-12-11 05:48 | Day surgery (SDC) | payer OTHER | END 2018-12-11 08:30 | disposition home or self-care (01) | LOC: FECT 05:48 | PROC: GZB4ZZZ Other Electroconvulsive Therapy (ICD-10-PCS; principal; 2018-12-11) | DX: F31.62 Bipolar disorder, current episode mixed, moderate (principal) ==

== ENCOUNTER 2018-12-15 05:37 | Day surgery (SDC) | payer OTHER | END 2018-12-15 08:20 | disposition home or self-care (01) | LOC: FECT 05:37 ==

== ENCOUNTER 2018-12-22 05:38 | Day surgery (SDC) | payer OTHER | END 2018-12-22 08:40 | disposition home or self-care (01) | LOC: FECT 05:38 ==

== ENCOUNTER 2018-12-29 05:43 | Day surgery (SDC) | payer OTHER | END 2018-12-29 08:30 | disposition home or self-care (01) | LOC: FECT 05:43 ==

== ENCOUNTER 2019-01-05 05:42 | Day surgery (SDC) | payer OTHER | END 2019-01-05 09:35 | disposition home or self-care (01) | LOC: FECT 05:42 ==

== ENCOUNTER 2019-01-12 05:38 | Day surgery (SDC) | payer OTHER ==
[2019-01-12 06:24] VITALS: BMI 38.1
[2019-01-12 08:02] VITALS: TEMP 98.1
[2019-01-12 08:20] VITALS: BP 112/62; PULSE 87
== END 2019-01-12 08:30 | disposition home or self-care (01) ==
LOC: FECT 05:38
PROVIDERS: ATTEND Psychiatry & Neurology Psychiatry
PROC: GZB4ZZZ Other Electroconvulsive Therapy (ICD-10-PCS; principal; 2019-01-12 07:15)
DX: F31.89 Other bipolar disorder (principal)
CPT/HCPCS: 90870; 94760

== ENCOUNTER 2019-01-19 05:38 | Day surgery (SDC) | payer OTHER ==
[2019-01-19 06:34] VITALS: BMI 38.0
[2019-01-19] MEDS ORDERED: LACTATED RINGERS SOLUTION 1,000 ML IV SCH (07:00)
[2019-01-19 08:26] VITALS: TEMP 98.3
[2019-01-19 08:37] VITALS: BP 123/73; PULSE 89
== END 2019-01-19 08:40 | disposition home or self-care (01) ==
LOC: FECT 05:38
PROVIDERS: ATTEND Psychiatry & Neurology Psychiatry
PROC: GZB4ZZZ Other Electroconvulsive Therapy (ICD-10-PCS; principal; 2019-01-19 08:00)
DX: F31.89 Other bipolar disorder (principal)
CPT/HCPCS: 90870; 94760

== ENCOUNTER 2019-01-26 05:42 | Day surgery (SDC) | payer OTHER ==
[2019-01-26 06:38] VITALS: TEMP 98.1
[2019-01-26 06:42] VITALS: BMI 38.2
[2019-01-26 08:03] LABS: BASO % 0.8 % (0-2.0); HEMATOCRIT 49.2 % (35.4-49); HEMOGLOBIN 16.2 GM/dl (11.7-16.9); LYMPH % 18.2 % (8-40); MCH 30.2 pg (25.7-33.7); MCHC 32.9 g/dl (32.0-35.9); MEAN CELL VOLUME 91.9 fl (80-96); MEAN PLT VOLUME 8.9 fl (7.5-11.1); MONO % 5.3 % (3.8-10.2); NEUT % 73.7 % (42.8-82.8); PLATELET COUNT 214 K/MM3 (134-434); RBC 5.36 M/mm3 (4.00-5.60)
[2019-01-26 08:06] LABS: ALBUMIN 4.7 g/dl (3.4-5.0); BILIRUBIN,TOTAL 0.8 mg/dl (0.2-1); CALCIUM 9.4 mg/dl (8.5-10); CREATININE 1.1 mg/dl (0.55-1.3); MAGNESIUM 2.2 mg/dL (1.8-2.4); POTASSIUM 4.1 mmol/L (3.5-5.1); TOT PROT 7.5 g/dl (6.4-8.2)
[2019-01-26 08:26] VITALS: BP 114/79; PULSE 81
== END 2019-01-26 08:30 | disposition home or self-care (01) ==
LOC: FECT 05:42
PROVIDERS: ATTEND Psychiatry & Neurology Psychiatry
PROC: GZB4ZZZ Other Electroconvulsive Therapy (ICD-10-PCS; principal; 2019-01-26 07:45)
DX: F31.62 Bipolar disorder, current episode mixed, moderate (principal)
CPT/HCPCS: 36415; 80053; 83735; 85025; 90870; 94760

== ENCOUNTER 2019-02-02 05:49 | Day surgery (SDC) | payer OTHER ==
[2019-02-02 06:34] VITALS: BMI 37.5
--- NOTE | 2019-02-02 08:12 | HP ---
CHIEF COMPLAINT: Bipolar Disorder PCP: [place]. [place] Primary psychiatrist: Dr. Richard HISTORY OF PRESENT ILLNESS: 47 year-old male with a PMH significant for HTN, MILI, and bipolar disorder. Patient has been undergoing ECT since 2008. He presents today for ECT. Recent events: * None reported Allergies No Known Allergies Allergy (Verified 01/19/19 18:20) HOME MEDICATIONS: Home Medications Medication Instructions Recorded Amlodipine Besylate [Norvasc -] 10 mg PO DAILY 11/16/12 Aspirin [ASA -] 81 mg PO HS 11/16/12 Labetalol HCl 200 mg PO BID 11/16/12 Cholecalciferol (Vitamin D3) 4,000 unit PO DAILY 06/14/14 [Vitamin D3] Quetiapine Fumarate "Xr" [Seroquel 300 mg PO HS 03/21/15 XR] Polyethylene Glycol 3350 [Miralax 17 gm PO HS 05/05/18 119 gm Btl -] Rosuvastatin Calcium [Crestor] 10 mg PO HS 09/22/18 REVIEW OF SYSTEMS CONSTITUTIONAL: Absent: fever, chills, diaphoresis, generalized weakness, malaise, loss of appetite, weight change HEENT: Absent: rhinorrhea, nasal congestion, throat pain, throat swelling, difficulty swallowing, mouth swelling, ear pain, eye pain, visual changes CARDIOVASCULAR: Absent: chest pain, syncope, palpitations, irregular heart rate, lightheadedness , peripheral edema RESPIRATORY: Absent: cough, shortness of breath, dyspnea with exertion, orthopnea, wheezing, stridor, hemoptysis GASTROINTESTINAL: Absent: abdominal pain, abdominal distension, nausea, vomiting, diarrhea, constipation, melena, hematochezia GENITOURINARY: Absent: dysuria, frequency, urgency, hesitancy, hematuria, flank pain, genital pain MUSCULOSKELETAL: Absent: myalgia, arthralgia, joint swelling, back pain, neck pain SKIN: Absent: rash, itching, pallor HEMATOLOGIC/IMMUNOLOGIC: Absent: easy bleeding, easy bruising, lymphadenopathy, frequent infections ENDOCRINE: Absent: unexplained weight gain, unexplained weight loss, heat intolerance, cold intolerance NEUROLOGIC: Absent: headache, focal weakness or paresthesias, dizziness, unsteady gait, seizure, mental status changes, bladder or bowel incontinence PHYSICAL EXAMINATION Vital Signs - 24 hr 02/02/19 02/02/19 02/02/19 06:29 07:45 07:50 Temperature 98.0 F Pulse Rate 77 82 84 Respiratory 18 22 H 23 H Rate Blood Pressure 124/73 118/52 L 115/78 O2 Sat by Pulse 98 99 95 Oximetry (%) GENERAL: Awake, alert, and fully oriented, in no acute distress. HEAD: Normal with no signs of trauma. EYES: Pupils equal, round and reactive to light, sclera anicteric, conjunctiva clear. LUNGS: Breath sounds equal, clear to auscultation bilaterally. No wheezes, and no crackles. No accessory muscle use. HEART: Regular rate and rhythm, normal S1 and S2 ABDOMEN: Soft, nontender, not distended MUSCULOSKELETAL: Normal range of motion at all joints. No bony deformities or tenderness. No CVA tenderness. UPPER EXTREMITIES: 2+ pulses, warm, well-perfused. No cyanosis. No clubbing. No peripheral edema. LOWER EXTREMITIES: 2+ pulses, warm, well-perfused. No calf tenderness. No peripheral edema. NEUROLOGICAL: Cranial nerves II-XII intact. Normal speech. ASSESSMENT/PLAN: 47 year-old male with a PMH significant for HTN, MILI, and bipolar disorder. Presents today for ECT. Cardiac --BP stable --Revised Cardiac Risk Index for Pre-Operative Risk: 0 points, 0.4% risk of major cardiac event Pulmonary --no pulmonary history Neurological --no neurological or neurosurgical history; no history of trauma Anesthesia --no reported problems with anesthesia ECT is a low risk procedure. The relative benefits of the planned procedure outweigh the relative risks for this patient at this time. Visit type - Emergency Visit Emergency Visit: No - New Patient This patient is new to me today: Yes Date on this admission: 02/02/19 - Critical Care Critical Care patient: No
[2019-02-02 08:41] VITALS: TEMP 98.1
[2019-02-02 08:59] VITALS: BP 121/66; PULSE 86
== END 2019-02-02 08:50 | disposition home or self-care (01) ==
LOC: FECT 05:49
PROVIDERS: ATTEND Psychiatry & Neurology Psychiatry
PROC: GZB4ZZZ Other Electroconvulsive Therapy (ICD-10-PCS; principal; 2019-02-02 07:45)
DX: F31.89 Other bipolar disorder (principal)
CPT/HCPCS: 90870; 94760

== ENCOUNTER 2019-02-09 05:44 | Day surgery (SDC) | payer OTHER ==
[2019-02-09 06:26] VITALS: BMI 38.2
[2019-02-09 08:04] VITALS: TEMP 97.7
[2019-02-09 08:20] VITALS: BP 129/87; PULSE 84
[2019-02-09] MEDS ORDERED: oxyCODONE HCL 5 MG TABLET PO PRN (08:48)
== END 2019-02-09 08:20 | disposition home or self-care (01) ==
LOC: FECT 05:44
PROVIDERS: ATTEND Psychiatry & Neurology Psychiatry
PROC: GZB4ZZZ Other Electroconvulsive Therapy (ICD-10-PCS; principal; 2019-02-09 08:15)
DX: F31.62 Bipolar disorder, current episode mixed, moderate (principal)
CPT/HCPCS: 90870; 94760

== ENCOUNTER 2019-02-16 05:37 | Day surgery (SDC) | payer OTHER ==
[2019-02-16 06:36] VITALS: TEMP 98; BMI 37.8
[2019-02-16 08:29] VITALS: BP 110/66; PULSE 88
== END 2019-02-16 08:30 | disposition home or self-care (01) ==
LOC: FECT 05:37
PROVIDERS: ATTEND Psychiatry & Neurology Psychiatry
PROC: GZB4ZZZ Other Electroconvulsive Therapy (ICD-10-PCS; principal; 2019-02-16 07:30)
DX: F31.89 Other bipolar disorder (principal)
CPT/HCPCS: 90870; 94760

== ENCOUNTER 2019-02-23 05:40 | Day surgery (SDC) | payer OTHER | END 2019-02-23 08:49 | disposition home or self-care (01) | LOC: FECT 05:40 ==

== ENCOUNTER 2019-03-02 05:34 | Day surgery (SDC) | payer OTHER ==
[2019-03-02 06:32] VITALS: BMI 38.5
[2019-03-02] MEDS ORDERED: oxyCODONE HCL 5 MG TABLET PO PRN (07:39)
[2019-03-02 08:06] VITALS: TEMP 98.2
--- NOTE | 2019-03-02 08:20 | HP ---
CHIEF COMPLAINT: Bipolar disorder PCP: Dr. [place], [place] Primary Psychiatrist: Dr. Prather HISTORY OF PRESENT ILLNESS: 47 year-old male with a PMH significant for HTN, MILI (nightly CPAP), and bipolar disorder. Patient has been undergoing ECT since 2008. He presents today for ECT. Recent Events: * none reported PAST MEDICAL HISTORY: Hypertension MILI Bipolar disorder PAST SURGICAL HISTORY: None reported Social History: lives in [place] with parents and sister Smoking: never Alcohol: no Drugs: no Family history: Mother 76 a&w; father 76 a&w; sister a&w Allergies No Known Allergies Allergy (Verified 02/10/19 15:08) HOME MEDICATIONS: Home Medications Medication Instructions Recorded Amlodipine Besylate [Norvasc -] 10 mg PO DAILY 11/16/12 Aspirin [ASA -] 81 mg PO HS 11/16/12 Labetalol HCl 200 mg PO BID 11/16/12 Cholecalciferol (Vitamin D3) 4,000 unit PO DAILY 06/14/14 [Vitamin D3] Quetiapine Fumarate "Xr" [Seroquel 300 mg PO HS 03/21/15 XR] Rosuvastatin Calcium [Crestor] 10 mg PO HS 09/22/18 Polyethylene Glycol 3350 [Purelax] 1 pkt PO HS 03/02/19 REVIEW OF SYSTEMS CONSTITUTIONAL: Absent: fever, chills, diaphoresis, generalized weakness, malaise, loss of appetite, weight change HEENT: Absent: rhinorrhea, nasal congestion, throat pain, throat swelling, difficulty swallowing, mouth swelling, ear pain, eye pain, visual changes CARDIOVASCULAR: Absent: chest pain, syncope, palpitations, irregular heart rate, lightheadedness , peripheral edema RESPIRATORY: Absent: cough, shortness of breath, dyspnea with exertion, orthopnea, wheezing, stridor, hemoptysis GASTROINTESTINAL: Absent: abdominal pain, abdominal distension, nausea, vomiting, diarrhea, constipation, melena, hematochezia GENITOURINARY: Absent: dysuria, frequency, urgency, hesitancy, hematuria, flank pain, genital pain MUSCULOSKELETAL: Absent: myalgia, arthralgia, joint swelling, back pain, neck pain SKIN: Absent: rash, itching, pallor HEMATOLOGIC/IMMUNOLOGIC: Absent: easy bleeding, easy bruising, lymphadenopathy, frequent infections ENDOCRINE: Absent: unexplained weight gain, unexplained weight loss, heat intolerance, cold intolerance NEUROLOGIC: Absent: headache, focal weakness or paresthesias, dizziness, unsteady gait, seizure, mental status changes, bladder or bowel incontinence PHYSICAL EXAMINATION Vital Signs - 24 hr 03/02/19 03/02/19 03/02/19 06:29 07:27 07:35 Temperature 97.5 F L Pulse Rate 98 H 92 H 91 H Respiratory 18 22 H 20 Rate Blood Pressure 118/86 109/76 110/76 O2 Sat by Pulse 98 98 97 Oximetry (%) 03/02/19 03/02/19 03/02/19 07:40 07:45 07:55 Temperature 98.2 F Pulse Rate 91 H 89 82 Respiratory 22 H 22 H 18 Rate Blood Pressure 117/80 115/79 130/80 O2 Sat by Pulse 96 95 96 Oximetry (%) GENERAL: Awake, alert, and fully oriented, in no acute distress. HEAD: Normal with no signs of trauma. EYES: Pupils equal, round and reactive to light, sclera anicteric, conjunctiva clear. LUNGS: Breath sounds equal, clear to auscultation bilaterally. No wheezes, and no crackles. No accessory muscle use. HEART: Regular rate and rhythm, normal S1 and S2 ABDOMEN: Soft, nontender, not distended MUSCULOSKELETAL: Normal range of motion at all joints. No bony deformities or tenderness. No CVA tenderness. UPPER EXTREMITIES: 2+ pulses, warm, well-perfused. No cyanosis. No clubbing. No peripheral edema. LOWER EXTREMITIES: 2+ pulses, warm, well-perfused. No calf tenderness. No peripheral edema. NEUROLOGICAL: Cranial nerves II-XII intact. Normal speech. ASSESSMENT/PLAN: 47 year-old male with a PMH significant for HTN, MILI (nightly CPAP), and bipolar disorder. He presents today for ECT. Cardiac --no cardiac history --Revised Cardiac Risk Index for Pre-Operative Risk: 0 points, 0.4% risk of major cardiac event Pulmonary --no pulmonary history Neurological --no neurological or neurosurgical history; no history of trauma Anesthesia --no reported problems with anesthesia ECT is a low risk procedure. The relative benefits of the planned procedure outweigh the relative risks for this patient at this time. Visit type - Emergency Visit Emergency Visit: No - New Patient This patient is new to me today: Yes Date on this admission: 03/02/19 - Critical Care Critical Care patient: No
[2019-03-02 09:14] VITALS: BP 132/84; PULSE 86
== END 2019-03-02 08:45 | disposition home or self-care (01) ==
LOC: FECT 05:34
PROVIDERS: ATTEND Psychiatry & Neurology Psychiatry
PROC: GZB4ZZZ Other Electroconvulsive Therapy (ICD-10-PCS; principal; 2019-03-02 08:00)
DX: F31.89 Other bipolar disorder (principal)
CPT/HCPCS: 90870; 94760

== ENCOUNTER 2019-03-09 05:29 | Day surgery (SDC) | payer OTHER ==
[2019-03-09 06:23] VITALS: BMI 38.6
[2019-03-09] MEDS ORDERED: LACTATED RINGERS SOLUTION 1,000 ML IV SCH (07:00)
[2019-03-09 08:07] VITALS: TEMP 98
[2019-03-09 08:32] VITALS: BP 122/79; PULSE 88
== END 2019-03-09 08:30 | disposition home or self-care (01) ==
LOC: FECT 05:29
PROVIDERS: ATTEND Psychiatry & Neurology Psychiatry
PROC: GZB4ZZZ Other Electroconvulsive Therapy (ICD-10-PCS; principal; 2019-03-09 07:15)
DX: F31.62 Bipolar disorder, current episode mixed, moderate (principal)
CPT/HCPCS: 90870; 94760

== ENCOUNTER 2019-03-16 05:47 | Day surgery (SDC) | payer OTHER ==
[2019-03-16 06:36] VITALS: BMI 38.3
[2019-03-16 08:02] VITALS: TEMP 97.9
[2019-03-16 08:49] VITALS: BP 112/73; PULSE 80
[2019-03-16] MEDS ORDERED: LACTATED RINGERS SOLUTION 1,000 ML IV SCH (10:00)
== END 2019-03-16 08:53 | disposition home or self-care (01) ==
LOC: FECT 05:47
PROVIDERS: ATTEND Psychiatry & Neurology Psychiatry
PROC: GZB4ZZZ Other Electroconvulsive Therapy (ICD-10-PCS; principal; 2019-03-16 08:00)
DX: F31.89 Other bipolar disorder (principal)
CPT/HCPCS: 90870; 94760

== ENCOUNTER 2019-03-23 05:41 | Day surgery (SDC) | payer OTHER | END 2019-03-23 08:40 | disposition home or self-care (01) | LOC: FECT 05:41 ==

== ENCOUNTER 2019-03-30 05:40 | Day surgery (SDC) | payer OTHER ==
[2019-03-30 06:33] VITALS: BMI 38.6
[2019-03-30 08:06] VITALS: TEMP 97.8
[2019-03-30] MEDS ORDERED: oxyCODONE HCL 5 MG TABLET PO PRN (08:20)
[2019-03-30] MEDS ORDERED: ACETAMINOPHEN 325 MG TABLET (FP) PO PRN (08:20)
[2019-03-30] MEDS ORDERED: ONDANSETRON 4 MG/2 ML VIAL IVPUSH PRN (08:20)
[2019-03-30 08:32] VITALS: BP 132/69; PULSE 89
== END 2019-03-30 08:35 | disposition home or self-care (01) ==
LOC: FECT 05:40 → FASU 05:40 → FECT 08:35
PROVIDERS: ATTEND Psychiatry & Neurology Psychiatry
PROC: GZB4ZZZ Other Electroconvulsive Therapy (ICD-10-PCS; principal; 2019-03-30 07:30)
DX: F31.62 Bipolar disorder, current episode mixed, moderate (principal)
CPT/HCPCS: 90870; 94760

== ENCOUNTER 2019-04-13 05:41 | Day surgery (SDC) | payer OTHER ==
[2019-04-13 06:52] VITALS: BMI 38.2
[2019-04-13] MEDS ORDERED: LACTATED RINGERS SOLUTION 1,000 ML IV SCH (07:15)
--- NOTE | 2019-04-13 07:46 | HP ---
CHIEF COMPLAINT: Bipolar disorder PCP: Dr. [place], [place] Primary Psychiatrist: Dr. Prather HISTORY OF PRESENT ILLNESS: 47 year-old male with a PMH significant for HTN, MILI (nightly CPAP), and bipolar disorder. Patient has been undergoing ECT since 2008. He presents today for ECT. Recent Events: * none reported PAST MEDICAL HISTORY: Hypertension MILI Bipolar disorder PAST SURGICAL HISTORY: None reported Social History: lives in [place] with parents and sister Smoking: never Alcohol: no Drugs: no Family history: Mother 76 a&w; father 76 a&w; sister a&w Allergies No Known Allergies Allergy (Verified 02/10/19 15:08) HOME MEDICATIONS: Home Medications Medication Instructions Recorded Amlodipine Besylate [Norvasc -] 10 mg PO DAILY 11/16/12 Aspirin [ASA -] 81 mg PO HS 11/16/12 Labetalol HCl 200 mg PO BID 11/16/12 Cholecalciferol (Vitamin D3) 4,000 unit PO DAILY 06/14/14 [Vitamin D3] Quetiapine Fumarate "Xr" [Seroquel 300 mg PO HS 03/21/15 XR] Rosuvastatin Calcium [Crestor] 10 mg PO HS 09/22/18 Polyethylene Glycol 3350 [Purelax] 1 pkt PO HS 03/02/19 REVIEW OF SYSTEMS CONSTITUTIONAL: Absent: fever, chills, diaphoresis, generalized weakness, malaise, loss of appetite, weight change HEENT: Absent: rhinorrhea, nasal congestion, throat pain, throat swelling, difficulty swallowing, mouth swelling, ear pain, eye pain, visual changes CARDIOVASCULAR: Absent: chest pain, syncope, palpitations, irregular heart rate, lightheadedness , peripheral edema RESPIRATORY: Absent: cough, shortness of breath, dyspnea with exertion, orthopnea, wheezing, stridor, hemoptysis GASTROINTESTINAL: Absent: abdominal pain, abdominal distension, nausea, vomiting, diarrhea, constipation, melena, hematochezia GENITOURINARY: Absent: dysuria, frequency, urgency, hesitancy, hematuria, flank pain, genital pain MUSCULOSKELETAL: Absent: myalgia, arthralgia, joint swelling, back pain, neck pain SKIN: Absent: rash, itching, pallor HEMATOLOGIC/IMMUNOLOGIC: Absent: easy bleeding, easy bruising, lymphadenopathy, frequent infections ENDOCRINE: Absent: unexplained weight gain, unexplained weight loss, heat intolerance, cold intolerance NEUROLOGIC: Absent: headache, focal weakness or paresthesias, dizziness, unsteady gait, seizure, mental status changes, bladder or bowel incontinence PHYSICAL EXAMINATION Vital Signs - 24 hr 04/13/19 06:48 Temperature 98.0 F Pulse Rate 87 Respiratory 18 Rate Blood Pressure 113/80 O2 Sat by Pulse 98 Oximetry (%) GENERAL: Awake, alert, and fully oriented, in no acute distress. HEAD: Normal with no signs of trauma. EYES: Pupils equal, round and reactive to light, sclera anicteric, conjunctiva clear. LUNGS: Breath sounds equal, clear to auscultation bilaterally. No wheezes, and no crackles. No accessory muscle use. HEART: Regular rate and rhythm, normal S1 and S2 ABDOMEN: Soft, nontender, not distended MUSCULOSKELETAL: Normal range of motion at all joints. No bony deformities or tenderness. No CVA tenderness. UPPER EXTREMITIES: 2+ pulses, warm, well-perfused. No cyanosis. No clubbing. No peripheral edema. LOWER EXTREMITIES: 2+ pulses, warm, well-perfused. No calf tenderness. No peripheral edema. NEUROLOGICAL: Cranial nerves II-XII intact. Normal speech. ASSESSMENT/PLAN: 47 year-old male with a PMH significant for HTN, MILI (nightly CPAP), and bipolar disorder. He presents today for ECT. Cardiac --BP stable --Revised Cardiac Risk Index for Pre-Operative Risk: 0 points, 0.4% risk of major cardiac event Pulmonary --no pulmonary history Neurological --no neurological or neurosurgical history; no history of trauma Anesthesia --no reported problems with anesthesia ECT is a low risk procedure. The relative benefits of the planned procedure outweigh the relative risks for this patient at this time. Cardiac --no cardiac history --Revised Cardiac Risk Index for Pre-Operative Risk: 0 points, 0.4% risk of major cardiac event Pulmonary --no pulmonary history Neurological --no neurological or neurosurgical history; no history of trauma Anesthesia --no reported problems with anesthesia ECT is a low risk procedure. The relative benefits of the planned procedure outweigh the relative risks for this patient at this time. Visit type - Emergency Visit Emergency Visit: No - New Patient This patient is new to me today: Yes Date on this admission: 04/13/19 - Critical Care Critical Care patient: No
[2019-04-13 08:50] VITALS: TEMP 97.4
[2019-04-13 09:24] VITALS: BP 128/74; PULSE 86
== END 2019-04-13 09:27 | disposition home or self-care (01) ==
LOC: FECT 05:41
PROVIDERS: ATTEND Psychiatry & Neurology Psychiatry
PROC: GZB4ZZZ Other Electroconvulsive Therapy (ICD-10-PCS; principal; 2019-04-13 07:00)
DX: F31.62 Bipolar disorder, current episode mixed, moderate (principal)
CPT/HCPCS: 90870; 94760

== ENCOUNTER 2019-04-27 05:32 | Day surgery (SDC) | payer OTHER ==
[2019-04-27 07:14] VITALS: BMI 24.3
[2019-04-27 08:55] VITALS: TEMP 98.6
[2019-04-27 09:12] VITALS: BP 119/86; PULSE 87
--- NOTE | 2019-04-27 15:54 | EKG ---
Test Reason : Blood Pressure : / mmHG Vent. Rate : 085 BPM Atrial Rate : 085 BPM P-R Int : 196 ms QRS Dur : 090 ms QT Int : 362 ms P-R-T Axes : 052 016 034 degrees QTc Int : 430 ms NORMAL SINUS RHYTHM NORMAL ECG WHEN COMPARED WITH ECG OF 20-OCT-2018 06:33, SINUS RHYTHM HAS REPLACED ATRIAL FLUTTER Confirmed by Bo Garrison ([id number]) on 04/27/2019 3:53:59 PM Referred By: Murphy Prather Confirmed By:Bo Garrison
== END 2019-04-27 09:05 | disposition home or self-care (01) ==
LOC: FECT 05:32
PROVIDERS: ATTEND Psychiatry & Neurology Psychiatry
PROC: GZB4ZZZ Other Electroconvulsive Therapy (ICD-10-PCS; principal; 2019-04-27 07:15)
DX: F31.62 Bipolar disorder, current episode mixed, moderate (principal)
CPT/HCPCS: 90870; 93005; 94760

== ENCOUNTER 2019-05-11 05:40 | Day surgery (SDC) | payer OTHER ==
--- NOTE | 2019-05-10 15:12 | HP ---
CHIEF COMPLAINT: [place]. [place] Primary psychiatrist: Dr. Richard HISTORY OF PRESENT ILLNESS: 47 year-old male with a PMH significant for HTN, MILI , and bipolar disorder. Patient has been undergoing ECT since 2008. He presents today for ECT. Recent Events: PAST MEDICAL HISTORY: Hypertension MILI (uses CPAP) Bipolar Disorder PAST SURGICAL HISTORY: Social History: Smoking: Alcohol: Drugs: Allergies No Known Allergies Allergy (Verified 02/10/19 15:08) HOME MEDICATIONS: Home Medications Medication Instructions Recorded Amlodipine Besylate [Norvasc -] 10 mg PO DAILY 11/16/12 Aspirin [ASA -] 81 mg PO HS 11/16/12 Labetalol HCl 200 mg PO BID 11/16/12 Cholecalciferol (Vitamin D3) 4,000 unit PO DAILY 06/14/14 [Vitamin D3] Quetiapine Fumarate "Xr" [Seroquel 300 mg PO HS 03/21/15 XR] Rosuvastatin Calcium [Crestor] 10 mg PO HS 09/22/18 Polyethylene Glycol 3350 [Purelax] 1 pkt PO HS 03/02/19 REVIEW OF SYSTEMS CONSTITUTIONAL: Absent: fever, chills, diaphoresis, generalized weakness, malaise, loss of appetite, weight change HEENT: Absent: rhinorrhea, nasal congestion, throat pain, throat swelling, difficulty swallowing, mouth swelling, ear pain, eye pain, visual changes CARDIOVASCULAR: Absent: chest pain, syncope, palpitations, irregular heart rate, lightheadedness , peripheral edema RESPIRATORY: Absent: cough, shortness of breath, dyspnea with exertion, orthopnea, wheezing, stridor, hemoptysis GASTROINTESTINAL: Absent: abdominal pain, abdominal distension, nausea, vomiting, diarrhea, constipation, melena, hematochezia GENITOURINARY: Absent: dysuria, frequency, urgency, hesitancy, hematuria, flank pain, genital pain MUSCULOSKELETAL: Absent: myalgia, arthralgia, joint swelling, back pain, neck pain SKIN: Absent: rash, itching, pallor HEMATOLOGIC/IMMUNOLOGIC: Absent: easy bleeding, easy bruising, lymphadenopathy, frequent infections ENDOCRINE: Absent: unexplained weight gain, unexplained weight loss, heat intolerance, cold intolerance NEUROLOGIC: Absent: headache, focal weakness or paresthesias, dizziness, unsteady gait, seizure, mental status changes, bladder or bowel incontinence PHYSICAL EXAMINATION GENERAL: Awake, alert, and fully oriented, in no acute distress. HEAD: Normal with no signs of trauma. EYES: Pupils equal, round and reactive to light, sclera anicteric, conjunctiva clear. LUNGS: Breath sounds equal, clear to auscultation bilaterally. No wheezes, and no crackles. No accessory muscle use. HEART: Regular rate and rhythm, normal S1 and S2 ABDOMEN: Soft, nontender, not distended MUSCULOSKELETAL: Normal range of motion at all joints. No bony deformities or tenderness. No CVA tenderness. UPPER EXTREMITIES: 2+ pulses, warm, well-perfused. No cyanosis. No clubbing. No peripheral edema. LOWER EXTREMITIES: 2+ pulses, warm, well-perfused. No calf tenderness. No peripheral edema. NEUROLOGICAL: Cranial nerves II-XII intact. Normal speech. ASSESSMENT/PLAN: Cardiac --no cardiac history --Revised Cardiac Risk Index for Pre-Operative Risk: 0 points, 0.4% risk of major cardiac event Pulmonary --no pulmonary history Neurological --no neurological or neurosurgical history; no history of trauma Anesthesia --no reported problems with anesthesia ECT is a low risk procedure. The relative benefits of the planned procedure outweigh the relative risks for this patient at this time.
[2019-05-11 06:14] VITALS: TEMP 97.5; BMI 38.0
[2019-05-11 07:54] VITALS: PULSE 88
[2019-05-11 08:34] VITALS: BP 131/84
== END 2019-05-11 08:25 | disposition home or self-care (01) ==
LOC: FECT 05:40
PROVIDERS: ATTEND Psychiatry & Neurology Psychiatry
PROC: GZB4ZZZ Other Electroconvulsive Therapy (ICD-10-PCS; principal; 2019-05-11 07:15)
DX: F31.62 Bipolar disorder, current episode mixed, moderate (principal)
CPT/HCPCS: 90870; 94760

== ENCOUNTER 2019-05-25 05:43 | Day surgery (SDC) | payer OTHER, BC ==
[2019-05-25 07:44] VITALS: TEMP 98.5
[2019-05-25 07:49] VITALS: BMI 37.8
--- NOTE | 2019-05-25 09:11 | HP ---
CHIEF COMPLAINT: Bipolar disorder PCP: Dr. [place]d [place], [place] Primary Psychiatrist: Dr. Prather HISTORY OF PRESENT ILLNESS: 48 year-old male with a PMH significant for HTN, MILI (nightly CPAP), and bipolar disorder. Patient has been undergoing ECT since 2008. He presents today for ECT. Recent Events: * none reported PAST MEDICAL HISTORY: Hypertension MILI Bipolar disorder PAST SURGICAL HISTORY: None reported Social History: lives in [place] with parents and sister Smoking: never Alcohol: no Drugs: no Family history: Mother 76 a&w; father 76 a&w; sister a&w Allergies No Known Allergies Allergy (Verified 05/20/19 11:16) HOME MEDICATIONS: Home Medications Medication Instructions Recorded Amlodipine Besylate [Norvasc -] 10 mg PO DAILY 11/16/12 Aspirin [ASA -] 81 mg PO HS 11/16/12 Labetalol HCl 200 mg PO BID 11/16/12 Cholecalciferol (Vitamin D3) 4,000 unit PO DAILY 06/14/14 [Vitamin D3] Quetiapine Fumarate "Xr" [Seroquel 300 mg PO HS 03/21/15 XR] Rosuvastatin Calcium [Crestor] 10 mg PO HS 09/22/18 Polyethylene Glycol 3350 [Purelax] 1 pkt PO HS 03/02/19 REVIEW OF SYSTEMS CONSTITUTIONAL: Absent: fever, chills, diaphoresis, generalized weakness, malaise, loss of appetite, weight change HEENT: Absent: rhinorrhea, nasal congestion, throat pain, throat swelling, difficulty swallowing, mouth swelling, ear pain, eye pain, visual changes CARDIOVASCULAR: Absent: chest pain, syncope, palpitations, irregular heart rate, lightheadedness , peripheral edema RESPIRATORY: Absent: cough, shortness of breath, dyspnea with exertion, orthopnea, wheezing, stridor, hemoptysis GASTROINTESTINAL: Absent: abdominal pain, abdominal distension, nausea, vomiting, diarrhea, constipation, melena, hematochezia GENITOURINARY: Absent: dysuria, frequency, urgency, hesitancy, hematuria, flank pain, genital pain MUSCULOSKELETAL: Absent: myalgia, arthralgia, joint swelling, back pain, neck pain SKIN: Absent: rash, itching, pallor HEMATOLOGIC/IMMUNOLOGIC: Absent: easy bleeding, easy bruising, lymphadenopathy, frequent infections ENDOCRINE: Absent: unexplained weight gain, unexplained weight loss, heat intolerance, cold intolerance NEUROLOGIC: Absent: headache, focal weakness or paresthesias, dizziness, unsteady gait, seizure, mental status changes, bladder or bowel incontinence PHYSICAL EXAMINATION Vital Signs - 24 hr 05/25/19 07:39 Temperature 98.5 F Pulse Rate 84 Respiratory 18 Rate Blood Pressure 115/78 O2 Sat by Pulse 97 Oximetry (%) GENERAL: Awake, alert, and fully oriented, in no acute distress. HEAD: Normal with no signs of trauma. EYES: Pupils equal, round and reactive to light, sclera anicteric, conjunctiva clear. LUNGS: Breath sounds equal, clear to auscultation bilaterally. No wheezes, and no crackles. No accessory muscle use. HEART: Regular rate and rhythm, normal S1 and S2 ABDOMEN: Soft, nontender, not distended MUSCULOSKELETAL: Normal range of motion at all joints. No bony deformities or tenderness. No CVA tenderness. UPPER EXTREMITIES: 2+ pulses, warm, well-perfused. No cyanosis. No clubbing. No peripheral edema. LOWER EXTREMITIES: 2+ pulses, warm, well-perfused. No calf tenderness. No peripheral edema. NEUROLOGICAL: Cranial nerves II-XII intact. Normal speech. ASSESSMENT/PLAN: 48 year-old male with a PMH significant for HTN, MILI (nightly CPAP), and bipolar disorder. He presents today for ECT. Cardiac --no cardiac history --Revised Cardiac Risk Index for Pre-Operative Risk: 0 points, 0.4% risk of major cardiac event Pulmonary --no pulmonary history Neurological --no neurological or neurosurgical history; no history of trauma Anesthesia --no reported problems with anesthesia ECT is a low risk procedure. The relative benefits of the planned procedure outweigh the relative risks for this patient at this time. Visit type - Emergency Visit Emergency Visit: No - New Patient This patient is new to me today: Yes Date on this admission: 05/25/19 - Critical Care Critical Care patient: No
[2019-05-25 10:30] VITALS: BP 116/67; PULSE 87
== END 2019-05-25 10:00 | disposition home or self-care (01) ==
LOC: FECT 05:43
PROVIDERS: ATTEND Psychiatry & Neurology Psychiatry
PROC: GZB4ZZZ Other Electroconvulsive Therapy (ICD-10-PCS; principal; 2019-05-25 07:30)
DX: F31.89 Other bipolar disorder (principal)
CPT/HCPCS: 90870; 94760

== ENCOUNTER 2019-06-08 05:41 | Day surgery (SDC) | payer OTHER ==
[2019-06-08 06:34] VITALS: TEMP 98.2; BMI 37.7
[2019-06-08 08:42] VITALS: BP 112/88; PULSE 88
== END 2019-06-08 08:35 | disposition home or self-care (01) ==
LOC: FECT 05:41
PROVIDERS: ATTEND Psychiatry & Neurology Psychiatry
PROC: GZB4ZZZ Other Electroconvulsive Therapy (ICD-10-PCS; principal; 2019-06-08 07:30)
DX: F31.62 Bipolar disorder, current episode mixed, moderate (principal)
CPT/HCPCS: 90870; 94760

== ENCOUNTER 2019-06-22 05:41 | Day surgery (SDC) | payer OTHER ==
[2019-06-22 06:55] VITALS: TEMP 98.4; BMI 37.5
--- NOTE | 2019-06-22 09:08 | HP ---
CHIEF COMPLAINT: Bipolar disorder [place]: [place] Primary Psychiatrist: Dr. Prather HISTORY OF PRESENT ILLNESS: 48 year-old male with a PMH significant for HTN, MILI (nightly CPAP), and bipolar disorder. Patient has been undergoing ECT since 2008. He presents today for ECT. Recent Events: * none reported PAST MEDICAL HISTORY: Hypertension MILI Bipolar disorder PAST SURGICAL HISTORY: None reported Social History: lives in [place] with parents and sister Smoking: never Alcohol: no Drugs: no Family history: Mother 76 a&w; father 76 a&w; sister a&w Allergies No Known Allergies Allergy (Verified 05/20/19 11:16) HOME MEDICATIONS: Home Medications Medication Instructions Recorded Amlodipine Besylate [Norvasc -] 10 mg PO DAILY 11/16/12 Aspirin [ASA -] 81 mg PO HS 11/16/12 Labetalol HCl 200 mg PO BID 11/16/12 Cholecalciferol (Vitamin D3) 4,000 unit PO DAILY 06/14/14 [Vitamin D3] Quetiapine Fumarate "Xr" [Seroquel 300 mg PO HS 03/21/15 XR] Rosuvastatin Calcium [Crestor] 10 mg PO HS 09/22/18 Polyethylene Glycol 3350 [Purelax] 1 pkt PO HS 03/02/19 REVIEW OF SYSTEMS CONSTITUTIONAL: Absent: fever, chills, diaphoresis, generalized weakness, malaise, loss of appetite, weight change HEENT: Absent: rhinorrhea, nasal congestion, throat pain, throat swelling, difficulty swallowing, mouth swelling, ear pain, eye pain, visual changes CARDIOVASCULAR: Absent: chest pain, syncope, palpitations, irregular heart rate, lightheadedness , peripheral edema RESPIRATORY: Absent: cough, shortness of breath, dyspnea with exertion, orthopnea, wheezing, stridor, hemoptysis GASTROINTESTINAL: Absent: abdominal pain, abdominal distension, nausea, vomiting, diarrhea, constipation, melena, hematochezia GENITOURINARY: Absent: dysuria, frequency, urgency, hesitancy, hematuria, flank pain, genital pain MUSCULOSKELETAL: Absent: myalgia, arthralgia, joint swelling, back pain, neck pain SKIN: Absent: rash, itching, pallor HEMATOLOGIC/IMMUNOLOGIC: Absent: easy bleeding, easy bruising, lymphadenopathy, frequent infections ENDOCRINE: Absent: unexplained weight gain, unexplained weight loss, heat intolerance, cold intolerance NEUROLOGIC: Absent: headache, focal weakness or paresthesias, dizziness, unsteady gait, seizure, mental status changes, bladder or bowel incontinence PHYSICAL EXAMINATION Vital Signs - 24 hr 06/22/19 06/22/19 06/22/19 06:46 08:00 08:05 Temperature 98.4 F Pulse Rate 96 H 86 91 H Respiratory 18 18 23 H Rate Blood Pressure 113/60 128/40 L 136/87 O2 Sat by Pulse 92 L 93 L Oximetry (%) 06/22/19 06/22/19 06/22/19 08:10 08:15 08:27 Temperature 98.4 F Pulse Rate 89 82 82 Respiratory 23 H 21 H 21 H Rate Blood Pressure 130/78 115/77 115/77 O2 Sat by Pulse 92 L 98 98 Oximetry (%) 06/22/19 08:35 Temperature 98.4 F Pulse Rate 66 Respiratory 18 Rate Blood Pressure 113/68 O2 Sat by Pulse 95 Oximetry (%) GENERAL: Awake, alert, and fully oriented, in no acute distress. HEAD: Normal with no signs of trauma. EYES: Pupils equal, round and reactive to light, sclera anicteric, conjunctiva clear. LUNGS: Breath sounds equal, clear to auscultation bilaterally. No wheezes, and no crackles. No accessory muscle use. HEART: Regular rate and rhythm, normal S1 and S2 ABDOMEN: Soft, nontender, not distended MUSCULOSKELETAL: Normal range of motion at all joints. No bony deformities or tenderness. No CVA tenderness. UPPER EXTREMITIES: 2+ pulses, warm, well-perfused. No cyanosis. No clubbing. No peripheral edema. LOWER EXTREMITIES: 2+ pulses, warm, well-perfused. No calf tenderness. No peripheral edema. NEUROLOGICAL: Cranial nerves II-XII intact. Normal speech. ASSESSMENT/PLAN: 48 year-old male with a PMH significant for HTN, MILI (nightly CPAP), and bipolar disorder. He presents today for ECT. Cardiac --BP stable --Revised Cardiac Risk Index for Pre-Operative Risk: 0 points, 0.4% risk of major cardiac event Pulmonary --no pulmonary history Neurological --no neurological or neurosurgical history; no history of trauma Anesthesia --no reported problems with anesthesia ECT is a low risk procedure. The relative benefits of the planned procedure outweigh the relative risks for this patient at this time. Visit type - Emergency Visit Emergency Visit: No - New Patient This patient is new to me today: Yes Date on this admission: 06/27/19 - Critical Care Critical Care patient: No
[2019-06-22 09:10] VITALS: BP 118/77; PULSE 88
== END 2019-06-22 09:10 | disposition home or self-care (01) ==
LOC: FECT 05:41
PROVIDERS: ATTEND Psychiatry & Neurology Psychiatry
PROC: GZB4ZZZ Other Electroconvulsive Therapy (ICD-10-PCS; principal; 2019-06-22 07:00)
DX: F31.89 Other bipolar disorder (principal)
CPT/HCPCS: 90870; 94760

== ENCOUNTER 2019-07-05 05:36 | Day surgery (SDC) | payer OTHER ==
[2019-07-05 06:47] VITALS: BMI 37.7
[2019-07-05] MEDS ORDERED: LACTATED RINGERS SOLUTION 1,000 ML IV SCH (07:00)
[2019-07-05 09:00] VITALS: BP 119/75; PULSE 85; TEMP 97.9
== END 2019-07-05 09:02 | disposition home or self-care (01) ==
LOC: FECT 05:36
PROVIDERS: ATTEND Psychiatry & Neurology Psychiatry
PROC: GZB4ZZZ Other Electroconvulsive Therapy (ICD-10-PCS; principal; 2019-07-05 08:00)
DX: F31.62 Bipolar disorder, current episode mixed, moderate (principal)
CPT/HCPCS: 90870; 94760

== ENCOUNTER 2019-07-20 05:35 | Day surgery (SDC) | payer OTHER ==
[2019-07-20 06:42] VITALS: TEMP 98.2; BMI 37.0
[2019-07-20 08:44] VITALS: BP 115/85; PULSE 91
[2019-07-20 08:56] LABS: ALBUMIN 4.2 g/dl (3.4-5.0); BILIRUBIN,TOTAL 1.3 mg/dl (0.2-1); CREATININE 1.1 mg/dl (0.55-1.3); POTASSIUM 3.7 mmol/L (3.5-5.1); TOT PROT 6.9 g/dl (6.4-8.2)
[2019-07-20 08:59] LABS: BASO % 0.4 % (0-2.0); HEMATOCRIT 43.1 % (35.4-49); HEMOGLOBIN 14.4 GM/dl (11.7-16.9); LYMPH % 15.8 % (8-40); MCHC 33.5 g/dl (32.0-35.9); MEAN CELL VOLUME 89.8 fl (80-96); MEAN PLT VOLUME 8.4 fl (7.5-11.1); MONO % 7.4 % (3.8-10.2); NEUT % 75.4 % (42.8-82.8); PLATELET COUNT 199 K/MM3 (134-434); RDW 12.9 % (11.9-15.9); WHITE BLOOD COUNT 8.3 K/mm3 (4.0-10.8)
--- NOTE | 2019-07-21 07:47 | HP ---
CHIEF COMPLAINT: Bipolar disorder [place] Primary Psychiatrist: Dr. Prather HISTORY OF PRESENT ILLNESS: 48 year-old male with a PMH significant for HTN, MILI (nightly CPAP), and bipolar disorder. Patient has been undergoing ECT since 2008. He presents today for ECT. Recent Events: * none reported PAST MEDICAL HISTORY: Hypertension MILI Bipolar disorder PAST SURGICAL HISTORY: None reported Social History: lives in [place] with parents and sister Smoking: never Alcohol: no Drugs: no Family history: Mother 76 a&w; father 76 a&w; sister a&w Allergies No Known Allergies Allergy (Verified 07/05/19 06:36) HOME MEDICATIONS: Home Medications Medication Instructions Recorded Amlodipine Besylate [Norvasc -] 10 mg PO DAILY 11/16/12 Aspirin [ASA -] 81 mg PO HS 11/16/12 Labetalol HCl 200 mg PO BID 11/16/12 Cholecalciferol (Vitamin D3) 4,000 unit PO DAILY 06/14/14 [Vitamin D3] Quetiapine Fumarate "Xr" [Seroquel 300 mg PO HS 03/21/15 XR] Rosuvastatin Calcium [Crestor] 10 mg PO HS 09/22/18 Polyethylene Glycol 3350 [Purelax] 1 pkt PO HS 03/02/19 REVIEW OF SYSTEMS CONSTITUTIONAL: Absent: fever, chills, diaphoresis, generalized weakness, malaise, loss of appetite, weight change HEENT: Absent: rhinorrhea, nasal congestion, throat pain, throat swelling, difficulty swallowing, mouth swelling, ear pain, eye pain, visual changes CARDIOVASCULAR: Absent: chest pain, syncope, palpitations, irregular heart rate, lightheadedness , peripheral edema RESPIRATORY: Absent: cough, shortness of breath, dyspnea with exertion, orthopnea, wheezing, stridor, hemoptysis GASTROINTESTINAL: Absent: abdominal pain, abdominal distension, nausea, vomiting, diarrhea, constipation, melena, hematochezia GENITOURINARY: Absent: dysuria, frequency, urgency, hesitancy, hematuria, flank pain, genital pain MUSCULOSKELETAL: Absent: myalgia, arthralgia, joint swelling, back pain, neck pain SKIN: Absent: rash, itching, pallor HEMATOLOGIC/IMMUNOLOGIC: Absent: easy bleeding, easy bruising, lymphadenopathy, frequent infections ENDOCRINE: Absent: unexplained weight gain, unexplained weight loss, heat intolerance, cold intolerance NEUROLOGIC: Absent: headache, focal weakness or paresthesias, dizziness, unsteady gait, seizure, mental status changes, bladder or bowel incontinence PHYSICAL EXAMINATION Vital Signs - 24 hr 07/20/19 07/20/19 07/20/19 07:53 08:00 08:30 Temperature 98.2 F 98.2 F Pulse Rate 100 H 94 H 91 H Respiratory 24 H 18 18 Rate Blood Pressure 143/88 111/88 115/85 O2 Sat by Pulse 94 L 93 L 96 Oximetry (%) 07/20/19 08:40 Temperature 98.2 F Pulse Rate 91 H Respiratory 18 Rate Blood Pressure 115/85 O2 Sat by Pulse Oximetry (%) GENERAL: Awake, alert, and fully oriented, in no acute distress. HEAD: Normal with no signs of trauma. EYES: Pupils equal, round and reactive to light, sclera anicteric, conjunctiva clear. LUNGS: Breath sounds equal, clear to auscultation bilaterally. No wheezes, and no crackles. No accessory muscle use. HEART: Regular rate and rhythm, normal S1 and S2 ABDOMEN: Soft, nontender, not distended MUSCULOSKELETAL: Normal range of motion at all joints. No bony deformities or tenderness. No CVA tenderness. UPPER EXTREMITIES: 2+ pulses, warm, well-perfused. No cyanosis. No clubbing. No peripheral edema. LOWER EXTREMITIES: 2+ pulses, warm, well-perfused. No calf tenderness. No peripheral edema. NEUROLOGICAL: Cranial nerves II-XII intact. Normal speech. Laboratory Results - last 24 hr 07/20/19 07/20/19 08:45 08:45 WBC 8.3 RBC 4.80 Hgb 14.4 Hct 43.1 MCV 89.8 MCH 30.0 MCHC 33.5 RDW 12.9 Plt Count 199 MPV 8.4 Absolute Neuts (auto) 6.3 Neutrophils % 75.4 Lymphocytes % 15.8 Monocytes % 7.4 Eosinophils % 1.0 Basophils % 0.4 Sodium 136 Potassium 3.7 Chloride 104 Carbon Dioxide 25 Anion Gap 7 L BUN 12.0 Creatinine 1.1 Est GFR (CKD-EPI)AfAm 92.16 Est GFR (CKD-EPI)NonAf 79.52 Random Glucose 99 Calcium 9.0 Total Bilirubin 1.3 H AST 25 ALT 23 Alkaline Phosphatase 81 Total Protein 6.9 Albumin 4.2 ASSESSMENT/PLAN: 48 year-old male with a PMH significant for HTN, MILI (nightly CPAP), and bipolar disorder. He presents today for ECT. Cardiac --Hypertension: BP stable on present medications --Revised Cardiac Risk Index for Pre-Operative Risk: 0 points, 0.4% risk of major cardiac event Pulmonary --no pulmonary history Neurological --no neurological or neurosurgical history; no history of trauma Anesthesia --no reported problems with anesthesia ECT is a low risk procedure. The relative benefits of the planned procedure outweigh the relative risks for this patient at this time. Visit type - Emergency Visit Emergency Visit: No - New Patient This patient is new to me today: Yes Date on this admission: 07/22/19 - Critical Care Critical Care patient: No
== END 2019-07-20 08:40 | disposition home or self-care (01) ==
LOC: FECT 05:35
PROVIDERS: ATTEND Psychiatry & Neurology Psychiatry
PROC: GZB4ZZZ Other Electroconvulsive Therapy (ICD-10-PCS; principal; 2019-07-20 07:00)
DX: F31.89 Other bipolar disorder (principal)
CPT/HCPCS: 36415; 80053; 85025; 90870; 94760

== ENCOUNTER 2019-08-03 05:43 | Day surgery (SDC) | payer OTHER ==
[2019-08-03 06:36] VITALS: BMI 36.8
[2019-08-03 08:16] VITALS: TEMP 97.7
[2019-08-03 08:46] VITALS: BP 112/60; PULSE 87
== END 2019-08-03 08:45 | disposition home or self-care (01) ==
LOC: FECT 05:43
PROVIDERS: ATTEND Psychiatry & Neurology Psychiatry
PROC: GZB4ZZZ Other Electroconvulsive Therapy (ICD-10-PCS; principal; 2019-08-03 07:30)
DX: F31.62 Bipolar disorder, current episode mixed, moderate (principal)
CPT/HCPCS: 90870; 94760

== ENCOUNTER 2019-08-17 05:39 | Day surgery (SDC) | payer OTHER ==
[2019-08-17 06:30] VITALS: BMI 36.3
[2019-08-17 08:19] VITALS: TEMP 97.6
[2019-08-17] MEDS ORDERED: ONDANSETRON 4 MG/2 ML VIAL IVPUSH PRN (08:31)
[2019-08-17 08:45] VITALS: BP 128/78; PULSE 72
[2019-08-17] MEDS ORDERED: LACTATED RINGERS SOLUTION 1,000 ML IV SCH (08:45)
== END 2019-08-17 08:47 | disposition home or self-care (01) ==
LOC: FECT 05:39
PROVIDERS: ATTEND Psychiatry & Neurology Psychiatry
PROC: GZB4ZZZ Other Electroconvulsive Therapy (ICD-10-PCS; principal; 2019-08-17 07:15)
DX: F31.62 Bipolar disorder, current episode mixed, moderate (principal)
CPT/HCPCS: 90870; 94760

== ENCOUNTER 2019-08-31 05:41 | Day surgery (SDC) | payer OTHER ==
[2019-08-31] MEDS ORDERED: ONDANSETRON 4 MG/2 ML VIAL IVPUSH PRN (07:00)
[2019-08-31] MEDS ORDERED: LACTATED RINGERS SOLUTION 1,000 ML IV SCH (07:00)
[2019-08-31 07:22] VITALS: BMI 35.9
--- NOTE | 2019-08-31 08:23 | HP ---
CHIEF COMPLAINT: Bipolar disorder [place]: [place] Primary Psychiatrist: Dr. Prather HISTORY OF PRESENT ILLNESS: 48 year-old male with a PMH significant for HTN, MILI (nightly CPAP), and bipolar disorder. Patient has been undergoing ECT since 2008. He presents today for ECT. Recent Events: * none reported PAST MEDICAL HISTORY: Hypertension MILI Bipolar disorder PAST SURGICAL HISTORY: None reported Social History: lives in [place] with parents and sister Smoking: never Alcohol: no Drugs: no Family history: Mother 76 a&w; father 76 a&w; sister a&w Allergies No Known Allergies Allergy (Verified 08/05/19 11:12) HOME MEDICATIONS: Home Medications Medication Instructions Recorded Amlodipine Besylate [Norvasc -] 10 mg PO DAILY 11/16/12 Aspirin [ASA -] 81 mg PO HS 11/16/12 Labetalol HCl 200 mg PO BID 11/16/12 Cholecalciferol (Vitamin D3) 4,000 unit PO DAILY 06/14/14 [Vitamin D3] Quetiapine Fumarate "Xr" [Seroquel 300 mg PO HS 03/21/15 XR] Rosuvastatin Calcium [Crestor] 10 mg PO HS 09/22/18 Polyethylene Glycol 3350 [Purelax] 1 pkt PO HS 03/02/19 REVIEW OF SYSTEMS CONSTITUTIONAL: Absent: fever, chills, diaphoresis, generalized weakness, malaise, loss of appetite, weight change HEENT: Absent: rhinorrhea, nasal congestion, throat pain, throat swelling, difficulty swallowing, mouth swelling, ear pain, eye pain, visual changes CARDIOVASCULAR: Absent: chest pain, syncope, palpitations, irregular heart rate, lightheadedness , peripheral edema RESPIRATORY: Absent: cough, shortness of breath, dyspnea with exertion, orthopnea, wheezing, stridor, hemoptysis GASTROINTESTINAL: Absent: abdominal pain, abdominal distension, nausea, vomiting, diarrhea, constipation, melena, hematochezia GENITOURINARY: Absent: dysuria, frequency, urgency, hesitancy, hematuria, flank pain, genital pain MUSCULOSKELETAL: Absent: myalgia, arthralgia, joint swelling, back pain, neck pain SKIN: Absent: rash, itching, pallor HEMATOLOGIC/IMMUNOLOGIC: Absent: easy bleeding, easy bruising, lymphadenopathy, frequent infections ENDOCRINE: Absent: unexplained weight gain, unexplained weight loss, heat intolerance, cold intolerance NEUROLOGIC: Absent: headache, focal weakness or paresthesias, dizziness, unsteady gait, seizure, mental status changes, bladder or bowel incontinence PHYSICAL EXAMINATION Vital Signs - 24 hr 08/31/19 07:18 Temperature 97.5 F L Pulse Rate 87 Respiratory 18 Rate Blood Pressure 116/82 O2 Sat by Pulse 96 Oximetry (%) GENERAL: Awake, alert, and fully oriented, in no acute distress. HEAD: Normal with no signs of trauma. EYES: Pupils equal, round and reactive to light, sclera anicteric, conjunctiva clear. LUNGS: Breath sounds equal, clear to auscultation bilaterally. No wheezes, and no crackles. No accessory muscle use. HEART: Regular rate and rhythm, normal S1 and S2 ABDOMEN: Soft, nontender, not distended MUSCULOSKELETAL: Normal range of motion at all joints. No bony deformities or tenderness. No CVA tenderness. UPPER EXTREMITIES: 2+ pulses, warm, well-perfused. No cyanosis. No clubbing. No peripheral edema. LOWER EXTREMITIES: 2+ pulses, warm, well-perfused. No calf tenderness. No peripheral edema. NEUROLOGICAL: Cranial nerves II-XII intact. Normal speech. ASSESSMENT/PLAN: 48 year-old male with a PMH significant for HTN, MILI (nightly CPAP), and bipolar disorder. He presents today for ECT. Cardiac --Hypertension: BP stable on present medications --Revised Cardiac Risk Index for Pre-Operative Risk: 0 points, 0.4% risk of major cardiac event Pulmonary --no pulmonary history Neurological --no neurological or neurosurgical history; no history of trauma Anesthesia --no reported problems with anesthesia ECT is a low risk procedure. The relative benefits of the planned procedure outweigh the relative risks for this patient at this time. Visit type - Emergency Visit Emergency Visit: No - New Patient This patient is new to me today: Yes Date on this admission: 08/31/19 - Critical Care Critical Care patient: No
[2019-08-31 09:22] VITALS: BP 115/76; PULSE 79; TEMP 97.8
== END 2019-08-31 09:25 | disposition home or self-care (01) ==
LOC: FECT 05:41
PROVIDERS: ATTEND Psychiatry & Neurology Psychiatry
PROC: GZB4ZZZ Other Electroconvulsive Therapy (ICD-10-PCS; principal; 2019-08-31 07:45)
DX: F31.89 Other bipolar disorder (principal)
CPT/HCPCS: 90870; 94760

== ENCOUNTER 2019-09-14 05:41 | Day surgery (SDC) | payer OTHER ==
[2019-09-14 06:30] VITALS: TEMP 98; BMI 35.7
[2019-09-14 08:16] VITALS: BP 119/79; PULSE 88
[2019-09-14] MEDS ORDERED: ONDANSETRON 4 MG/2 ML VIAL IVPUSH PRN (09:20)
[2019-09-14] MEDS ORDERED: LACTATED RINGERS SOLUTION 1,000 ML IV SCH (09:30)
== END 2019-09-14 08:20 | disposition home or self-care (01) ==
LOC: FECT 05:41
PROVIDERS: ATTEND Psychiatry & Neurology Psychiatry
PROC: GZB4ZZZ Other Electroconvulsive Therapy (ICD-10-PCS; principal; 2019-09-14 07:15)
DX: F31.62 Bipolar disorder, current episode mixed, moderate (principal)
CPT/HCPCS: 90870; 94760

== ENCOUNTER 2020-01-13 08:07 | Day surgery (SDC) | payer OTHER, BC ==
[2020-01-13 08:53] VITALS: BMI 39.9
[2020-01-13 09:04] LABS: EOS % 1.3 % (0-4.5); HEMOGLOBIN 16.2 GM/dl (11.7-16.9); LYMPH % 17.9 % (8-40); MCH 30.4 pg (25.7-33.7); MCHC 35.2 g/dl (32.0-35.9); MEAN CELL VOLUME 86.2 fl (80-96); MEAN PLT VOLUME 7.9 fl (7.5-11.1); MONO % 7.2 % (3.8-10.2); NEUT % 72.6 % (42.8-82.8); PLATELET COUNT 240 K/MM3 (134-434); RBC 5.34 M/mm3 (4.00-5.60); RDW 12.8 % (11.9-15.9)
--- NOTE | 2020-01-13 09:04 | HP ---
CHIEF COMPLAINT: Bipolar disorder [place] Primary Psychiatrist: Dr. Prather HISTORY OF PRESENT ILLNESS: 48 year-old male with a PMH significant for HTN, MILI (nightly CPAP), and bipolar disorder. Patient has been undergoing ECT since 2008. His last ECT treatment was on 08/31/19. He returns today after the COVID hiatus. Recent Events: * Seroquel dose increased PAST MEDICAL HISTORY: Hypertension MILI Bipolar disorder PAST SURGICAL HISTORY: None reported Social History: lives in [place] with parents and sister Smoking: never Alcohol: no Drugs: no Family history: Mother 76 a&w; father 76 a&w; sister a&w Allergies No Known Allergies Allergy (Verified 08/05/19 11:12) HOME MEDICATIONS: Home Medications Medication Instructions Recorded Amlodipine Besylate [Norvasc -] 10 mg PO DAILY 11/16/12 Aspirin [ASA -] 81 mg PO HS 11/16/12 Labetalol HCl 200 mg PO BID 11/16/12 Cholecalciferol (Vitamin D3) 4,000 unit PO DAILY 06/14/14 [Vitamin D3] Quetiapine Fumarate "Xr" [Seroquel 600 mg PO HS 03/21/15 XR] Rosuvastatin Calcium [Crestor] 10 mg PO HS 09/22/18 Polyethylene Glycol 3350 [Purelax] 1 pkt PO HS 03/02/19 REVIEW OF SYSTEMS CONSTITUTIONAL: Absent: fever, chills, diaphoresis, generalized weakness, malaise, loss of ap petite, weight change HEENT: Absent: rhinorrhea, nasal congestion, throat pain, throat swelling, difficulty swallowing, mouth swelling, ear pain, eye pain, visual changes CARDIOVASCULAR: Absent: chest pain, syncope, palpitations, irregular heart rate, lightheadedness, peripheral edema RESPIRATORY: Absent: cough, shortness of breath, dyspnea with exertion, orthopnea, wheezing, stridor, hemoptysis GASTROINTESTINAL: Absent: abdominal pain, abdominal distension, nausea, vomiting, diarrhea, constipation, melena, hematochezia GENITOURINARY: Absent: dysuria, frequency, urgency, hesitancy, hematuria, flank pain, genital pain MUSCULOSKELETAL: Absent: myalgia, arthralgia, joint swelling, back pain, neck pain SKIN: Absent: rash, itching, pallor HEMATOLOGIC/IMMUNOLOGIC: Absent: easy bleeding, easy bruising, lymphadenopathy, frequent infections ENDOCRINE: Absent: unexplained weight gain, unexplained weight loss, heat intolerance, cold intolerance NEUROLOGIC: Absent: headache, focal weakness or paresthesias, dizziness, unsteady gait, seizure, mental status changes, bladder or bowel incontinence PHYSICAL EXAMINATION Vital Signs - 24 hr 01/13/20 08:51 Temperature 99 F Pulse Rate 92 H Respiratory 18 Rate Blood Pressure 125/82 O2 Sat by Pulse 97 Oximetry (%) GENERAL: Awake, alert, and fully oriented, in no acute distress. HEAD: Normal with no signs of trauma. EYES: Pupils equal, round and reactive to light, sclera anicteric, conjunctiva clear. LUNGS: Breath sounds equal, clear to auscultation bilaterally. No wheezes, and no crackles. No accessory muscle use. HEART: Regular rate and rhythm, normal S1 and S2 ABDOMEN: Soft, nontender, not distended MUSCULOSKELETAL: Normal range of motion at all joints. No bony deformities or tenderness. No CVA tenderness. UPPER EXTREMITIES: 2+ pulses, warm, well-perfused. No cyanosis. No clubbing. No peripheral edema. LOWER EXTREMITIES: 2+ pulses, warm, well-perfused. No calf tenderness. No peripheral edema. NEUROLOGICAL: Cranial nerves II-XII intact. Normal speech. ASSESSMENT/PLAN: 48 year-old male with a PMH significant for HTN, MILI (nightly CPAP), and bipolar disorder. He presents today for ECT. Cardiac --Hypertension: BP stable on present medications --Revised Cardiac Risk Index for Pre-Operative Risk: 0 points, 0.4% risk of major cardiac event Pulmonary --no pulmonary history Neurological --no neurological or neurosurgical history; no history of trauma Anesthesia --no reported problems with anesthesia ECT is a low risk procedure. The relative benefits of the planned procedure outweigh the relative risks for this patient at this time. Visit type - Emergency Visit Emergency Visit: No - New Patient This patient is new to me today: Yes Date on this admission: 01/13/20 - Critical Care Critical Care patient: No
[2020-01-13 09:25] LABS: CALCIUM 9.1 mg/dl (8.5-10); CREATININE 1.3 mg/dl (0.55-1.3); POTASSIUM 4.2 mmol/L (3.5-5.1)
[2020-01-13 09:26] LABS: ALBUMIN 4.6 g/dl (3.4-5.0); BILIRUBIN,TOTAL 1.3 mg/dl (0.2-1); MAGNESIUM 2.1 mg/dL (1.8-2.4); TOT PROT 7.6 g/dl (6.4-8.2)
[2020-01-13] MEDS ORDERED: SUCCINYLCHOLINE CHLORIDE 200 MG/10 ML SYRINGE ONE (11:01)
[2020-01-13] MEDS ORDERED: PROPOFOL 20 ML ONE (11:01)
[2020-01-13] MEDS ORDERED: GLYCOPYRROLATE 0.2 MG/1 ML VIAL ONE (11:02)
[2020-01-13 12:04] VITALS: TEMP 97.7
[2020-01-13 12:31] VITALS: BP 120/87; PULSE 89
--- NOTE | 2020-01-13 14:07 | EKG ---
Test Reason : Blood Pressure : / mmHG Vent. Rate : 092 BPM Atrial Rate : 092 BPM P-R Int : 200 ms QRS Dur : 092 ms QT Int : 354 ms P-R-T Axes : 046 004 018 degrees QTc Int : 437 ms NORMAL SINUS RHYTHM POSSIBLE LEFT ATRIAL ENLARGEMENT LEFT VENTRICULAR HYPERTROPHY ABNORMAL ECG WHEN COMPARED WITH ECG OF 27-APR-2019 06:51, NO SIGNIFICANT CHANGE WAS FOUND Confirmed by HORTENCIA MAJANO MD ([id number]) on 01/13/2020 2:07:22 PM Referred By: Murphy Prather Confirmed By:HORTENCIA MAJANO MD
== END 2020-01-13 12:25 | disposition home or self-care (01) ==
LOC: FECT 08:07
PROVIDERS: ATTEND Psychiatry & Neurology Psychiatry
PROC: GZB4ZZZ Other Electroconvulsive Therapy (ICD-10-PCS; principal; 2020-01-13 10:30)
DX: F31.89 Other bipolar disorder (principal)
CPT/HCPCS: 36415; 80053; 83735; 85025; 90870; 93005; 94760

== ENCOUNTER 2020-01-20 05:55 | Day surgery (SDC) | payer OTHER, BC ==
[2020-01-20 06:29] VITALS: TEMP 98.5
[2020-01-20 06:35] VITALS: BMI 40.8
[2020-01-20 08:58] VITALS: BP 134/74; PULSE 89
== END 2020-01-20 08:40 | disposition home or self-care (01) ==
LOC: FECT 05:55
PROVIDERS: ATTEND Psychiatry & Neurology Psychiatry
PROC: GZB4ZZZ Other Electroconvulsive Therapy (ICD-10-PCS; principal; 2020-01-20 07:00)
DX: F31.89 Other bipolar disorder (principal)
CPT/HCPCS: 90870; 94760

== ENCOUNTER 2020-01-31 05:50 | Day surgery (SDC) | payer OTHER, BC ==
[2020-01-31 06:38] VITALS: BMI 40.5
[2020-01-31] MEDS ORDERED: ONDANSETRON 4 MG/2 ML VIAL IVPUSH PRN (07:16)
[2020-01-31 08:27] VITALS: TEMP 98.2
[2020-01-31 11:55] VITALS: BP 130/82; PULSE 88
== END 2020-01-31 09:15 | disposition home or self-care (01) ==
LOC: FECT 05:50
PROVIDERS: ATTEND Psychiatry & Neurology Psychiatry
PROC: GZB4ZZZ Other Electroconvulsive Therapy (ICD-10-PCS; principal; 2020-01-31 07:00)
DX: F31.62 Bipolar disorder, current episode mixed, moderate (principal)
CPT/HCPCS: 90870; 94760

== ENCOUNTER 2020-02-07 05:48 | Day surgery (SDC) | payer OTHER, BC ==
[2020-02-07 06:39] VITALS: BMI 89.8
[2020-02-07] MEDS ORDERED: PROPOFOL 20 ML ONE ×2 (07:22)
[2020-02-07] MEDS ORDERED: SUCCINYLCHOLINE CHLORIDE 200 MG/10 ML SYRINGE ONE (07:42)
[2020-02-07 08:36] VITALS: TEMP 97.1
[2020-02-07 08:48] VITALS: BP 121/71; PULSE 79
[2020-02-07] MEDS ORDERED: ONDANSETRON 4 MG/2 ML VIAL IVPUSH PRN (10:01)
[2020-02-07] MEDS ORDERED: LACTATED RINGERS SOLUTION 1,000 ML IV SCH (10:15)
== END 2020-02-07 08:45 | disposition home or self-care (01) ==
LOC: FECT 05:48
PROVIDERS: ATTEND Psychiatry & Neurology Psychiatry
PROC: GZB4ZZZ Other Electroconvulsive Therapy (ICD-10-PCS; principal; 2020-02-07 07:00)
DX: F31.62 Bipolar disorder, current episode mixed, moderate (principal)
CPT/HCPCS: 90870; 94760

== ENCOUNTER 2020-02-28 06:23 | Day surgery (SDC) | payer OTHER, BC ==
[2020-02-28] MEDS ORDERED: SUCCINYLCHOLINE CHLORIDE 200 MG/10 ML SYRINGE ONE ×2 (06:36→09:18)
[2020-02-28] MEDS ORDERED: PROPOFOL 20 ML ONE ×3 (06:36→09:10)
[2020-02-28] MEDS ORDERED: METOPROLOL TARTRATE 5 MG/5 ML VIAL ONE (07:10)
[2020-02-28 08:29] VITALS: BMI 58.4
[2020-02-28 10:59] VITALS: TEMP 98.2
[2020-02-28 11:00] VITALS: BP 121/89; PULSE 66
== END 2020-02-28 11:00 | disposition home or self-care (01) ==
LOC: FECT 06:23
PROVIDERS: ATTEND Psychiatry & Neurology Psychiatry
PROC: GZB4ZZZ Other Electroconvulsive Therapy (ICD-10-PCS; principal; 2020-02-28 08:30)
DX: F31.62 Bipolar disorder, current episode mixed, moderate (principal)
CPT/HCPCS: 90870; 94760

== ENCOUNTER 2020-03-13 05:49 | Day surgery (SDC) | payer OTHER, BC ==
[2020-03-13 06:55] VITALS: BMI 85.8
[2020-03-13] MEDS ORDERED: ONDANSETRON 4 MG/2 ML VIAL ONE (07:45)
[2020-03-13] MEDS ORDERED: PROPOFOL 20 ML ONE (07:45)
[2020-03-13] MEDS ORDERED: SUCCINYLCHOLINE CHLORIDE 200 MG/10 ML SYRINGE ONE (07:45)
[2020-03-13 09:13] VITALS: BP 121/72; PULSE 87; TEMP 98
== END 2020-03-13 09:13 | disposition home or self-care (01) ==
LOC: FECT 05:49
PROVIDERS: ATTEND Psychiatry & Neurology Psychiatry
PROC: GZB4ZZZ Other Electroconvulsive Therapy (ICD-10-PCS; principal; 2020-03-13 08:30)
DX: F31.62 Bipolar disorder, current episode mixed, moderate (principal)
CPT/HCPCS: 90870; 94760

== ENCOUNTER 2020-03-27 08:04 | Day surgery (SDC) | payer OTHER, BC ==
--- NOTE | 2020-03-27 08:37 | HP ---
CHIEF COMPLAINT: Bipolar disorder [place]CP: [place] Primary Psychiatrist: Dr. Prather HISTORY OF PRESENT ILLNESS: 48 year-old male with a PMH significant for HTN, MILI (nightly CPAP), and bipolar disorder. Patient has been undergoing ECT since 2008. His last ECT treatment was on 08/31/19. He returns today after the COVID hiatus. Recent Events: * Seroquel dose increased PAST MEDICAL HISTORY: Hypertension MILI Bipolar disorder PAST SURGICAL HISTORY: None reported Social History: lives in [place] with parents and sister Smoking: never Alcohol: no Drugs: no Family history: Mother 76 a&w; father 76 a&w; sister a&w Allergies No Known Allergies Allergy (Verified 01/13/20 16:31) HOME MEDICATIONS: Home Medications Medication Instructions Recorded Amlodipine Besylate [Norvasc -] 10 mg PO DAILY 11/16/12 Aspirin [ASA -] 81 mg PO HS 11/16/12 Labetalol HCl 200 mg PO BID 11/16/12 Cholecalciferol (Vitamin D3) 4,000 unit PO DAILY 06/14/14 [Vitamin D3] Quetiapine Fumarate "Xr" [Seroquel 600 mg PO HS 03/21/15 XR] Rosuvastatin Calcium [Crestor] 10 mg PO HS 09/22/18 Polyethylene Glycol 3350 [Purelax] 1 pkt PO HS 03/02/19 REVIEW OF SYSTEMS CONSTITUTIONAL: Absent: fever, chills, diaphoresis, generalized weakness, malaise, loss of ap petite, weight change HEENT: Absent: rhinorrhea, nasal congestion, throat pain, throat swelling, difficulty swallowing, mouth swelling, ear pain, eye pain, visual changes CARDIOVASCULAR: Absent: chest pain, syncope, palpitations, irregular heart rate, lightheadedness, peripheral edema RESPIRATORY: Absent: cough, shortness of breath, dyspnea with exertion, orthopnea, wheezing, stridor, hemoptysis GASTROINTESTINAL: Absent: abdominal pain, abdominal distension, nausea, vomiting, diarrhea, constipation, melena, hematochezia GENITOURINARY: Absent: dysuria, frequency, urgency, hesitancy, hematuria, flank pain, genital pain MUSCULOSKELETAL: Absent: myalgia, arthralgia, joint swelling, back pain, neck pain SKIN: Absent: rash, itching, pallor HEMATOLOGIC/IMMUNOLOGIC: Absent: easy bleeding, easy bruising, lymphadenopathy, frequent infections ENDOCRINE: Absent: unexplained weight gain, unexplained weight loss, heat intolerance, cold intolerance NEUROLOGIC: Absent: headache, focal weakness or paresthesias, dizziness, unsteady gait, seizure, mental status changes, bladder or bowel incontinence PHYSICAL EXAMINATION Vital Signs Temperature 98.1 F 03/27/20 10:47 Pulse Rate 81 03/27/20 10:47 Respiratory Rate 16 03/27/20 10:47 Blood Pressure 116/76 03/27/20 10:47 O2 Sat by Pulse Oximetry (%) 95 03/27/20 10:35 GENERAL: Awake, alert, and fully oriented, in no acute distress. HEAD: Normal with no signs of trauma. EYES: Pupils equal, round and reactive to light, sclera anicteric, conjunctiva clear. LUNGS: Breath sounds equal, clear to auscultation bilaterally. No wheezes, and no crackles. No accessory muscle use. HEART: Regular rate and rhythm, normal S1 and S2 ABDOMEN: Soft, nontender, not distended MUSCULOSKELETAL: Normal range of motion at all joints. No bony deformities or tenderness. No CVA tenderness. UPPER EXTREMITIES: 2+ pulses, warm, well-perfused. No cyanosis. No clubbing. No peripheral edema. LOWER EXTREMITIES: 2+ pulses, warm, well-perfused. No calf tenderness. No peripheral edema. NEUROLOGICAL: Cranial nerves II-XII intact. Normal speech. ASSESSMENT/PLAN: 48 year-old male with a PMH significant for HTN, MILI (nightly CPAP), and bipolar disorder. He presents today for ECT. Cardiac --Hypertension: BP stable on present medications --Revised Cardiac Risk Index for Pre-Operative Risk: 0 points, 0.4% risk of major cardiac event Pulmonary --no pulmonary history Neurological --no neurological or neurosurgical history; no history of trauma Anesthesia --no reported problems with anesthesia ECT is a low risk procedure. The relative benefits of the planned procedure outweigh the relative risks for this patient at this time. Visit type - Emergency Visit Emergency Visit: No - New Patient This patient is new to me today: Yes Date on this admission: 03/28/20 - Critical Care Critical Care patient: No
[2020-03-27 08:43] VITALS: BMI 38.7
[2020-03-27 10:24] VITALS: PULSE 81; TEMP 98.1
[2020-03-27 10:46] VITALS: BP 116/76
== END 2020-03-27 10:55 | disposition home or self-care (01) ==
LOC: FECT 08:04
PROVIDERS: ATTEND Psychiatry & Neurology Psychiatry
PROC: GZB4ZZZ Other Electroconvulsive Therapy (ICD-10-PCS; principal; 2020-03-27 10:30)
DX: F31.62 Bipolar disorder, current episode mixed, moderate (principal)
CPT/HCPCS: 90870; 94760

== ENCOUNTER 2020-04-10 06:47 | Day surgery (SDC) | payer OTHER, BC ==
[2020-04-10 07:53] VITALS: BMI 38.2
[2020-04-10] MEDS ORDERED: LACTATED RINGERS SOLUTION 1,000 ML IV SCH (08:45)
[2020-04-10 09:59] VITALS: TEMP 98.5
[2020-04-10 10:32] VITALS: BP 112/78; PULSE 87
== END 2020-04-10 10:32 | disposition home or self-care (01) ==
LOC: FECT 06:47
PROVIDERS: ATTEND Psychiatry & Neurology Psychiatry
PROC: GZB4ZZZ Other Electroconvulsive Therapy (ICD-10-PCS; principal; 2020-04-10 08:30)
DX: F31.89 Other bipolar disorder (principal)
CPT/HCPCS: 90870; 94760

== ENCOUNTER 2020-04-24 06:17 | Day surgery (SDC) | payer OTHER, BC ==
--- OUTSIDE RECORDS SUMMARY | 2020-04-24 06:26 | XMS ---
:1970 Author Organization [facility] Care Team Providers Name Role Phone [facility] Unavailable Unavailable Re-disclosure Warning The records that you are about to access may contain information from federally- assisted alcohol or drug abuse programs. If such information is present, then the following federally mandated warning applies: This information has been disclosed to you from records protected by federal confidentiality rules (42 CFR part 2). The federal rules prohibit you from making any further disclosure of this information unless further disclosure is expressly permitted by the written consent of the person to whom it pertains or as otherwise permitted by 42 CFR part 2. A general authorization for the release of medical or other information is NOT sufficient for this purpose. The Federal rules restrict any use of the information to criminally investigate or prosecute any alcohol or drug abuse patient.The records that you are about to access may contain highly sensitive health information, the redisclosure of which is protected by Article 27-F of the [facility] Public Health law. If you continue you may haveaccess to information: Regarding HIV / AIDS; Provided by facilities licensed or operated by the [facility] Office of Mental Health; or Provided by the [facility] Office for People With Developmental Disabilities. If such information is present, then the following [facility] mandated warning applies: This information has been disclosed to you from confidential records which are protected by state law. State law prohibits you from making any further disclosure of this information without the specific written consent of the person to whom it pertains, or as otherwise permitted by law. Any unauthorized further disclosure in violation of state law may result in a fine or [place] health [facility] sentence or both. A general authorization for the release of medical or other information is NOT sufficient authorization for further disclosure. Encounters Encounter Providers Location Date Indications Data Source(s ) Outpatient 04/25/2020 12:45:00 [facility] 03/14/2020 01:30:00 [facility] Terese PM EDT - 03/14/2020 [facility] 04:26:44 PM EDT Patient discharged. Outpatient 03/13/2020 01:30:00 PM EDT [facility] [employer] ([facility] Outpatient 02/07/2020 07:48:53 AM EDT [facility] Outpatient 02/02/2020 01:00:00 PM EDT - [email or web address] 02/02/2020 01:08:06 PM EDT [facility] Patient discharged. Outpatient 02/02/2020 09:30:00 AM EDT [facility] [facility] Outpatient 09/13/2019 01:30:00 PM EST - [email or web address] 09/14/2019 11:44:58 AM EST [facility] Patient discharged. OL 09/09/2019 12:00:00 AM [facility] EST - 09/09/2019 11:59:00 Hospital PM EST Outpatient Attender: [id number] 08/31/2019 12:56:09 PM [facility] ([facility] EST [facility]) Patient admitted. Outpatient 08/04/2019 08:30:00 AM EST - [facility] [employer] (RIS) 08/04/2019 08:55:57 AM EST System Inc Patient discharged. Outpatient 06/01/2019 11:20:50 AM EST [facility] [employer] ([facility] Outpatient 05/26/2019 08:30:00 AM EST [facility] Outpatient 05/26/2019 12:00:00 AM EST - [email or web address] 05/26/2019 08:36:57 AM EST [facility] Inc Patient discharged. Outpatient 05/04/2019 05:16:24 PM EDT [facility] Outpatient 04/19/2019 09:30:00 AM EDT - [email or web address] 04/19/2019 10:28:21 AM EDT System Inc Patient discharged. Immunizations Vaccine Date Status Description Data Source(s) MMR 05/12/2019 12:00:00 AM completed MMR 05/12/2019, 12/01 [facility] Medications Medication Brand Start Product Dose Route Administrative Pharmacy [facility] Indications Reaction Description Data Name Date Form Instructions Instructions Source(s) Amlodipine amLODI mg Oral active hypertension Take 1 Tab Bon 10 MG Oral [place] 2020 by mouth Sec[facility] rs Tablet (NORVA 12:00: daily for Radha ity amLODIPine SC) 10 00 AM 233 days. H ealth (NORVASC) mg EDT Indications: Sy stem Inc 10 mg tablet high blood tablet pressure hypertension lamotrigine lamoTRIgine 11/14/2019 aborted Bon 25 MG Oral (LaMICtal) 25 12:00:00 AM [facility] Tablet mg tablet EDT Terese [employer]amo[employer]Igin[employer] (LaMICtal) 25 System mg tablet Inc Rosuvastatin rosuvastatin 09/27/2019 10 Oral active mixed Take 1 Tab Bon calcium 10 MG (CRESTOR) 10 12:00:00 AM mg hyperl ipid by mouth [facility] Oral Tablet mg tablet EDT emia daily. C harity rosuvastatin Indication H ealth (CRESTOR) 10 s: high Syst em mg tablet cholestero Inc l and high triglyceri jarod mixed hyperlipidemia Rosuvastatin rosuvastatin 06/29/2019 10 Oral active Take 10 Bon calcium 10 MG (CRESTOR) 10 12:00:00 AM mg mg by [facility] Oral Tablet mg tablet EST mouth Ch arity rosuvastatin daily. Healt h (CRESTOR) 10 System mg tablet Inc Labetalol labetaloL 06/29/2019 200 Oral active Ta ke 200 Bon hydrochloride (NORMODYNE) 12:00:00 AM mg mg by [facility] 200 MG Oral 200 mg tablet EST mout h two Terese Tablet (2) times Health labetaloL a day. System (NORMODYNE) Inc 200 mg tablet Amlodipine 10 amLODIPine 03/19/2019 10 Oral aborted hypert ens Take 1 Bon MG Oral Tablet (NORVASC) 10 12:00:00 AM mg ion Tab by [facility] amLODIPine mg tablet EDT mouth Jammie rity (NORVASC) 10 daily for He alth mg tablet 233 days. Syste m [employer]ic[employer] Inc ns: high blood pressure hypertension Insurance Providers Payer name Policy type Policy ID Covered Covered democrat's Policy P li / Coverage democrat ID relationship to [facility] type taylor MEDICARE [id number] SP [id number] BC PPO [id number] S [id number] MEDICAID [id number] SP [id number] MEDICARE [id number] SP [id number] BC PPO [id number] SP [id number] VALUE [id number] SP [id number] [facility] EMPIR PLAN MEDICAID OF Medicaid [id number] [facility] PPO [id number] [place] [id number] MEDICAID OF [id number] [facility] [id number] [place] [id number] MEDICARE [id number] CHILD [id number] [id number] [facility] [id number] SP [id number] OPTIONS MEDICAID OF Medicaid [id number] [facility] PPO [id number] [place] [id number] [place] [id number] [place] [id number] [place] [id number] [place] [facility] [employer]. [facility] EMPIRE [id number] [id number] [place]PO [place] [id number] PART A AND B PPO MEDICARE [id number] SP [id number] A MEDICAID OF Medicaid [id number] [facility] PPO [id number] [place] [id number] MEDICAID [id number] SP [id number] [place] PPO [id number] [place]IC[place] [id number] MEDICAID OF [id number] [facility] [id number] [place] [id number] Problems, Conditions, and Diagnoses Code Display Name Description Problem Type Effective Dates Data Source(s) G47.33 Obstructive sleep Obstructive sleep Diagnosis 03/14/2020 [facility] apnea (adult) apnea (adult) 01:25:42 PM EDT [facility] (pediatric) (pediatric) [facility] I10 Essential Essential Diagnosis 03/14/2020 [facility] (primary) (primary) 01:25:42 PM EDT [facility] hypertension hypertension System Inc F31.10 Bipolar disorder, Bipolar disorder, Diagnosis 02/02/2020 [facility] current episode current episode 12:38:22 PM EDT Terese [facility] manic without manic without System I nc psychotic psychotic features, features, unspecified unspecified E78.5 Hyperlipidemia, Hyperlipidemia, Diagnosis 09/13/2019 [facility] unspecified unspecified 02:14:06 PM EST [employer] D50.8 Other iron Other iron Diagnosis 09/09/2019 [facility] - Good deficiency anemias deficiency anemias 09:20:00 AM [facility] Z68.41 Body mass index Body mass index Diagnosis 04/19/2019 [facility] (BMI) 40.0-44.9, (BMI) 40.0-44.9, 09:27:24 AM E DT [facility] adult adult [facility] Surgeries/Procedures Procedure Description Date Indications Data Source(s) URINALYSIS URINALYSIS Routine 09/09/2019 Medicare annual 020 Screening for Bon W/ RFLX W/ RFLX 11:00 AM wellness visit, 04:00:00 PM blo od or [facility] MICROSCOPIC MICROSCOPIC EST subsequent EST protein in [facility] Screening for blood or u rineMedicare Health protein in urine annual System wellness Inc visit, subsequent Screening for blood or protein in urine Medicare annual wellness visit, subseque nt BILIRUBIN, BILIRUBIN, Routine 09/09/2019 09/09/2019 Bon CONFIRM CONFIRM 11:00 AM 04:00:00 PM Sec ours EST EST Te[facility] HEMOGLOBIN HEMOGLOBIN Routine 09/09/2019 Medicare 09/09/2019 Hyp erglycemiaMe Bon A1C W/O EAG A1C W/O EAG 9:29 AM EST annual 02:29:00 PM dicare annual [facility] wellness EST wellness visit, Terese visit, subsequent Healt h subsequen System t Inc Hyperglyc emia Hyperglycemia Medicare annual wellness visit, subseque nt Prostate PSA Routine 09/09/2019 Medicare annual 09/09/2019 S creening for Bon cancer SCREENING 9:29 AM EST wellness visit, 02:29:00 P M prostate [facility] screening; (SCREENING) subsequent EST cancerMedicare Terese prostate Screening for [facility] specific cancer visit, System antigen subsequent Inc test (psa) Screening for prostate cancer Medicare annual wellness visit, subseque nt CBC WITH CBC WITH Routine 09/09/2019 Medicare annual 09/09/2019 Other iron Bon AUTOMATED AUTOMATED 9:29 AM EST wellness visit, 02:29:00 PM deficiency [facility] DIFF DIFF subsequent EST anemiaMedicare Terese Other iron annual [facility] Health deficiency anemia visit, System subsequent Inc Other iron deficiency anemia Medicare annual wellness visit, subseque nt TSH 3RD TSH 3RD Routine 09/09/2019 Medicare annual wellness 08/15 Hypothyroidism, Bon GENERATION GENERATION 9:29 AM EST visit, subseque nt 02:29:00 PM unspecified [facility] Hypothyroidism, unspecified EST typeMedicare Terese type annual wellness Health visit, System subsequent Inc Hypothyroidism, unspecified type Medicare annual wellness visit, subseque nt METABOLIC METABOLIC Routine 09/09/2019 Medicare annual 0 Screening for Bon PANEL, PANEL, 9:29 AM EST wellness visit, 02:29:00 PM diabetes [facility] COMPREHENSIVE COMPREHENSIVE subsequent EST mellitus Terese Screening for diabetes ( DM)Medicare Health mellitus (DM) annual [facility] wellness Inc visit, subsequent Screening for diabetes mellitus (DM) Medicare annual wellness visit, subseque nt LIPID <td><content ID="[id number]">LIPID 09/09/2019 H yperlipidemia Bon PANEL PANEL</content></td><td>Routine</td><td>09/09/2019 02: 29:00 PM LDL goal [facility] 9:29 AM EST</td><td><paragraph>Medicare annual EST <100Medicare Terese wellness visit, annual wellness Health subsequent</paragraph><paragraph>Hyperlipidemia LDL visit, System goal <100</paragraph></td><td><paragraph subsequent Inc styleCode="header">Results for this procedure are in the <content styleCode="[id number]">results section</content>.</paragraph></td> Hyperlipidemia LDL goal <100 Medicare annual wellness visit, subseque nt Results ID Date Data Source [id number] 04/20/2020 08:18:00 AM EDT [facility] Name Value Range Interpretation Description Data Sup porting Code Source(s) Document(s ) SARS [facility] coronavirus 2 RNA This lab was ordered by [facility] AYALA wheeler [facility] and reported by [facility]. ID Date Data Source [id number] 04/06/2020 08:20:00 AM EDT [facility] Name Value Range Interpretation Description Data Sup porting Code Source(s) Document(s ) SARS [facility] coronavirus 2 RNA This lab was ordered by [facility] AYALA wheeler [facility] and reported by [facility]. ID Date Data Source [id number] 03/23/2020 08:30:00 AM EDT [facility] Name Value Range Interpretation Description Data Sup porting Code Source(s) Document(s ) SARS [facility] coronavirus 2 RNA This lab was ordered by [facility] AYALA wheeler [facility] and reported by [facility]. ID Date Data Source [id number] 03/09/2020 08:06:00 AM EDT [facility] Name Value Range Interpretation Description Data Sup porting Code Source(s) Document(s ) SARS [facility] coronavirus 2 RNA This lab was ordered by [facility] AYALA wheeler [facility] and reported by [facility]. ID Date Data Source [id number] 02/24/2020 11:14:00 AM EDT [facility] Name Value Range Interpretation Description Data Sup porting Code Source(s) Document(s ) SARS [facility] coronavirus 2 RNA [facility] and reported by [facility]. ID Date Data Source [id number] 02/10/2020 08:25:00 AM EDT [facility] Name Value Range Interpretation Description Data Sup porting Code Source(s) Document(s ) SARS [facility] coronavirus 2 RNA This lab was ordered by [facility] AYALA wheeler [facility] and reported by [facility]. ID Date Data Source [id number] 02/03/2020 08:00:00 AM EDT [facility] Name Value Range Interpretation Description Data Sup porting Code Source(s) Document(s ) SARS [facility] coronavirus 2 RNA [facility] lab [facility] and reported by [facility]. ID Date Data Source [id number] 01/27/2020 08:05:00 AM EDT [facility] Name Value Range Interpretation Description Data Sup porting Code Source(s) Document(s ) SARS [facility] coronavirus 2 RNA This lab was ordered by [facility] and reported by [facility]. ID Date Data Source [id number] 01/17/2020 08:00:00 AM EDT [facility] Name Value Range Interpretation Description Data Sup porting Code Source(s) Document(s ) SARS [facility] coronavirus 2 RNA This lab was ordered by [facility] and reported by [facility]. ID Date Data Source [id number] 01/10/2020 10:00:00 AM EDT [facility] Name Value Range Interpretation Description Data Sup porting Code Source(s) Document(s ) SARS [facility] CORONAVIRUS 2 RNA This lab was ordered by [facility] and reported by [facility]. ID Date Data Source [id number] 09/09/2019 12:17:01 PM EST [facility] Name Value Range Interpretation Description Data Sup porting Code Source(s) Document(s ) Color of Urine YEL [facility] Appearance of CLEAR Abnormal (applies [facility] - Urine to non-numeric Good results) [facility] Specific gravity 1.014 1.003-1. [facility] - of Urine by 030 Good Refractometry [facility] pH of Urine by 6.0 4.6-8.0 [facility] - Test strip Good [facility] Protein NEG Abnormal (applies [facility] - [Mass/volume] in to non-numeric Good Urine by Test results) [facility] Glucose NEG [facility] - [Mass/volume] in Good Urine by Taoism Automated test [facility] strip Ketones 5 mg/dL NEG Abnormal (applies [facility] - [Presence] in to non-numeric Good Urine by results) [facility] Automated test [facility] strip Bilirubin.total NEG Abnormal (applies [facility] - [Presence] in to non-numeric Good Urine results) [facility] Hemoglobin NEG [facility] - [Presence] in Good Urine by Test [facility] Urobilinogen 0.2 0.2-1.0 [facility] - [Presence] in EU/dL Good Urine by Taoism Automated test Hospital strip Nitrite NEG [facility] - [Presence] in Good Urine by Taoism Automated test Hospital strip Leukocyte NEG [facility] - esterase Good [Presence] in Taoism Urine by Hospital Automated test strip Leukocytes 0-5 [facility] - [Presence] in Good Urine sediment Taoism by Light [facility] microscopy Erythrocytes 0-2 [facility] - [#/area] in Good Urine sediment Taoism by [facility] high power field Epithelial cells 0-10 [facility] - [#/area] in Good Urine sediment Taoism by [facility] high power field Bacteria NONE [facility] - [Presence] in Good Urine sediment Taoism by [facility] microscopy Casts [Presence] NONE [facility] - in Urine Good sediment by [facility] Hospital Crystals NONE [facility] - [Presence] in Good Urine sediment Taoism by Light [facility] microscopy ID Date Data Source [id number] 09/09/2019 12:05:20 PM EST [facility] - Good [facility] Value Range Interpretation Description Data Sup porting Code Source(s) Document(s ) Bilirubin NEG [facility] - Good [Presence] in Taoism Urine by Hospital Confirmatory method ID Date Data Source [id number] 09/09/2019 12:26:17 PM EST [facility] - Good [facility] Value Range Interpretation Description Data Sup porting Code Source(s) Document(s ) NOLOINC 1.100 0.360-3.7 [facility] - Good uIU/mL [address] [place] [address] This assay result should be used in conj unction with information available from clinical evaluation and other diagnostic procedures. 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: [employer] ID Date Data Source [id number] 09/09/2019 12:26:17 PM EST [facility] - Good [facility] Value Range Interpretation Description Data Sup porting Code Source(s) Document(s ) Sodium 136 136-145 [facility] - Good [Moles/volume] mmol/L Taoism in Serum or Hospital Plasma Potassium 3.8 3.5-5.1 [facility] - Good [Moles/volume] mmol/L Taoism in Serum or Hospital Plasma Chloride 102 98-107 [facility] - Good [Moles/volume] mmol/L Taoism in Serum or Hospital Plasma Carbon 26 21-32 [facility] - Good dioxide, total mmol/L Taoism [Moles/volume] Hospital in Serum or Plasma Anion gap in 11 10-20 [facility] - Good Serum or mmol/L Taoism Plasma Hospital Glucose 108 74-106 Above high normal [facility] - Good [Mass/volume] mg/dL Taoism in Serum or Hospital Plasma Urea nitrogen 16 mg/dL 7-18 [facility] - Good [Mass/volume] Taoism in Serum or Hospital Plasma Creatinine 1.29 0.70-1.3 [facility] - Good [Mass/volume] mg/dL 0 Taoism in Serum or Hospital Plasma Glomerular >60 [facility] - Good filtration Taoism rate/1.73 sq M Hospital predicted among blacks [Volume Rate/Area] in Serum or Plasma by Creatinine-bas ed formula (MDRD) Glomerular >60 [facility] - Good filtration Taoism rate/1.73 sq M Hospital predicted among non-blacks [Volume Rate/Area] in Serum or Plasma by Creatinine-bas ed formula (MDRD) (NOTE)Estimated GFR is calculated using the Modification of Diet in RenalDisease (MDRD) Study equation, reported for both Americans(GFRAA) and non- Americans (GFRNA), and normalized to 1.7 7a4erot surface area. The physician must decide which value applies tothe patient . The MDRD study equation should only be used inindividuals age 18 or older. It has no t been validated for thefollowing: women, patients with serious comorbid co nditions,or on certain medications, or persons with extremes of body size,muscl e mass, or nutritional status. Calcium [Mass/volume] in 9.4 mg/dL 8.5-10.1 [facility] - Good Serum or Plasma Taoism Hosp ital Bilirubin.total 0.9 mg/dL 0.2-1.0 [facility] - Good [Mass/volume] in Serum or [facility] Plasma Alanine aminotransferase 36 U/L 13-61 [facility] - Good [Enzymatic activity/volume] [facility] in Serum or Plasma Aspartate aminotransferase 13 U/L 15-37 Below low normal [facility] - Good [Enzymatic activity/volume] [facility] in Serum or Plasma by With P-5'-P Alkaline phosphatase 101 U/L 45-117 [facility] - G ood [Enzymatic activity/volume] [facility] in Serum or Plasma Protein [Mass/volume] in 7.8 g/dL 6.4-8.2 [facility] - Good Serum or Plasma [facility] ital Albumin [Mass/volume] in 4.2 g/dL 3.5-4.7 [facility] - Good Serum or Plasma by [facility] Bromocresol purple (BCP) dye binding method Globulin [Mass/volume] in 3.6 g/dL 1.7-4.7 [facility] - Good Serum by calculation [facility] Albumin/Globulin [Mass 1.2 0.7-2.8 [facility] - Good Ratio] in Serum or Plasma [facility] ID Date Data Source [id number] 09/09/2019 12:26:17 PM EST [facility] Name Value Range Interpretation Description Data Sup porting Code Source(s) Document(s ) Cholesterol 123 <200 [facility] - Good [Mass/volume] mg/dL Taoism in Serum or Hospital Plasma Triglyceride 107 <150 [facility] - Good [Mass/volume] mg/dL Taoism in Serum or Hospital Plasma Cholesterol in 40 mg/dL >40 Below low normal [facility] - Good HDL Taoism [Mass/volume] Hospital in Serum or Plasma Cholesterol in 61.6 <100 [facility] - Good LDL MG/DL Taoism [Mass/volume] [facility] in Serum or Plasma by calculation Cholesterol in 21.4 <38 [facility] - Good VLDL MG/DL Taoism [Mass/volume] Hospital in Serum or Plasma by calculation Cholesterol in 3.1 0.0-4.5 [facility] - Good HDL/Cholesterol Taoism .total [Mass Hospital Ratio] in Serum or Plasma ID Date Data Source [id number] 09/09/2019 12:21:30 PM EST [facility] Name Value Range Interpretation Description Data Sup porting Code Source(s) Document(s ) Hemoglobin 5.1 % 4.2-6.3 [facility] - Good A1c/Hemoglobin Taoism .total in Hospital Blood ID Date Data Source [id number] 09/09/2019 12:17:26 PM EST [facility] Name Value Range Interpretation Description Data Sup porting Code Source(s) Document(s ) Prostate 0.7 ng/mL 0-4.0 [facility] - Good specific Ag Taoism [Mass/volume Hospital ] in Serum or Plasma (NOTE)Many types of test methods are use d to measure PSA and can yielddifferent results on any given specimen. Therefore PSA results fromdifferent laboratories on the same patient are not directlycompara ble. In addition, PSA values by themselves should not beinterpreted as the presence or absence of cancer. PSA values used tomonitor for biochemical recurrence of prostate cancer should beinterpreted in accordance with current clinical guideli bridger (e.g. [id number] [place] [employer] (AUA) guidelines and the 201 5European Association of Urology (EAU) guidelines). ID Date Data Source [id number] 09/09/2019 12:01:18 PM EST [facility] Name Value Range Interpretation Description Data Sup porting Code Source(s) Document(s ) Leukocytes 11.4 4.8-10.6 Above high normal [facility] - [#/volume] in K/uL Good Blood by Taoism Automated [facility] Erythrocytes 5.26 4.70-6.0 [facility] - [#/volume] in M/uL 0 Good Blood by Taoism Automated [facility] Hemoglobin 15.8 14.0-18. [facility] - [Mass/volume] in g/dL 0 Good Blood [facility] Hematocrit 46.7 % 42.0-52. [facility] - [Volume 0 Good Fraction] of Taoism Blood by Hospital Automated count Erythrocyte mean 88.8 FL 81.0-94. [facility] - corpuscular 0 Good volume [Entitic Taoism volume] by Hospital Automated count Erythrocyte mean 30.0 PG 27.0-35. [facility] - corpuscular 0 Good hemoglobin Taoism [Entitic mass] [facility] by Automated count Erythrocyte mean 33.8 30.7-37. [facility] - corpuscular g/dL 3 Good hemoglobin [facility] [Mass/volume] by Automated count Erythrocyte 12.3 % 11.5-14. [facility] - distribution 0 Good width [Ratio] by Taoism Automated count Hospital Platelets 255 K/uL 130-400 [facility] - [#/volume] in Good Blood by Taoism Automated count Hospital Platelet mean 10.5 FL 9.2-11.8 [facility] - volume [Entitic Good volume] in Blood Taoism by Automated Hospital count Nucleated 0.0 PER 0 [facility] - erythrocytes/100 100 WBC Good leukocytes Taoism [Ratio] in Blood [facility] Nucleated 0.00 0.0-0.01 [facility] - erythrocytes K/uL Good [#/volume] in [facility] Segmented 73 % 48.0-72. Above high normal [facility] - neutrophils/100 0 Good leukocytes in [facility] [facility] Lymphocytes/100 18 % 18.0-40. [facility] - leukocytes in 0 [facility] Monocytes/100 7 % 2.0-12.0 [facility] - leukocytes in [facility] Blood [facility] Eosinophils/100 1 % 0.0-7.0 [facility] - leukocytes in [facility] Basophils/100 1 % 0.0-3.0 [facility] - leukocytes in [facility] Immature 1 % 0-0.5 Above high normal [facility] - granulocytes/100 Good leukocytes in [facility] by Hospital Automated count Segmented 8.2 K/UL 2.3-7.6 Above high normal [facility] - neutrophils Good [#/volume] in [facility] Lymphocytes 2.0 K/UL 0.9-4.2 [facility] - [#/volume] in [facility] Monocytes 0.8 K/UL 0.1-1.7 [facility] - [#/volume] in [facility] Eosinophils 0.1 K/UL 0.0-1.0 [facility] - [#/volume] in [facility] Basophils 0.1 K/UL 0.0-0.4 [facility] - [#/volume] in [facility] Immature 0.1 K/UL 0.0-0.17 [facility] - granulocytes Good [#/volume] in [facility] by Hospital Automated count Differential [facility] - cell count Good method - Blood [facility] Procedure Social History Code Duration Value Status Description Data Source(s ) Alcohol intake 03/14/2020 Current completed Current [facility] 12:00:00 AM EDT non-drinker non-drinker of [facility] of alcohol alcohol (finding) [facility] [employer] (finding) Tobacco use and 03/14/2020 Never used completed Never used [facility] exposure 12:00:00 AM EDT [facility] Smoking 03/14/2020 Never smoker completed Never smoker [facility] 12:00:00 AM EDT [facility] Alcohol intake 02/02/2020 Current completed Current [facility] 12:00:00 AM EDT non-drinker non-drinker of [employer] alcohol (finding) [facility] [employer] (finding) Tobacco use and 02/02/2020 Never used completed Never used [facility] exposure 12:00:00 AM EDT [facility] Smoking 02/02/2020 Never smoker completed Never smoker [facility] 12:00:00 AM EDT [facility] Alcohol intake 09/13/2019 Current completed Current [facility] 12:00:00 AM EST non-drinker non-drinker of [employer] alcohol (finding) [employer] (finding) Smoking 09/13/2019 Never smoker completed Never smoker [facility] 12:00:00 AM EST [employer] Alcohol intake 08/04/2019 Current completed Current [facility] 12:00:00 AM EST non-drinker non-drinker of [place] [employer] alcohol (finding) [employer] (finding) Smoking 08/04/2019 Never smoker completed Never smoker [facility] 12:00:00 AM EST [facility] [employer] Smoking 05/26/2019 Never smoker completed Never smoker [facility] 12:00:00 AM EST [employer] Smoking 04/19/2019 Never smoker completed Never smoker [facility] 12:00:00 AM EDT [facility] [employer] Vital Signs ID Date Data Source UNK Name Value Range Interpretation Code Description Data Source(s) Oxygen saturation 98 % 98 % [facility] in Arterial blood [facility] by [employer] [facility] [employer] Body mass index 42.37 kg/m2 42.37 kg/m2 [facility] (BMI) [Ratio] [employer] Body weight 131.09 kg 131.09 kg [employer] Body height 175.9 cm 175.9 cm [employer] Respiratory rate 12 /min 12 /min [facility] [employer] Body temperature 36.22 Katerine 36.22 Katerine [facility] [employer] Heart rate 70 /min 70 /min [email or web address] [facility] [employer] Diastolic blood 72 mm[Hg] 72 mm[Hg] [facility] pressure [employer] Systolic blood 110 mm[Hg] 110 mm[Hg] [facility] pressure [employer] Oxygen saturation 96 % 96 % [facility] in Arterial blood [employer] [facility] [employer] Body mass index 44.30 kg/m2 44.30 kg/m2 [facility] (BMI) [Ratio] [employer] Body weight 136.079 kg 136.079 kg [employer] Body height 175.3 cm 175.3 cm [employer] Respiratory rate 16 /min 16 /min [facility] [employer] Body temperature 36.17 Katerine 36.17 Katerine [facility] [employer] Heart rate 118 /min 118 /min [employer] Diastolic blood 84 mm[Hg] 84 mm[Hg] [facility] pressure [employer] Systolic blood 128 mm[Hg] 128 mm[Hg] [facility] pressure [employer] Oxygen saturation 96 % 96 % [facility] in Arterial blood [employer] [employer] [facility] [employer] Body mass index 38.27 kg/m2 38.27 kg/m2 [facility] (BMI) [Ratio] [employer] [facility] Body weight 118.389 kg 118.389 kg [employer] Body height 175.9 cm 175.9 cm [employer] Respiratory rate 12 /min 12 /min [facility] [employer] Body temperature 36.44 Katerine 36.44 Katerine [facility] [employer] Heart rate 94 /min 94 /min [employer] Diastolic blood 68 mm[Hg] 68 mm[Hg] [facility] pressure [employer] Systolic blood 112 mm[Hg] 112 mm[Hg] [facility] pressure [employer] Oxygen saturation 98 % 98 % [facility] in Arterial blood [facility] [employer] [employer] [facility] [employer] Body mass index 39.72 kg/m2 39.72 kg/m2 [facility] (BMI) [Ratio] [employer] Body weight 122.018 kg 122.018 kg [facility] [employer] Body height 175.3 cm 175.3 cm [employer] Respiratory rate 14 /min 14 /min [facility] [employer] Heart rate 110 /min 110 /min [employer] Diastolic blood 86 mm[Hg] 86 mm[Hg] [facility] pressure [employer] Systolic blood 130 mm[Hg] 130 mm[Hg] [facility] pressure [employer] Oxygen saturation 98 % 98 % [facility] in Arterial blood [facility] [employer] [employer] [facility] [employer] Body mass index 40.91 kg/m2 40.91 kg/m2 [facility] (BMI) [Ratio] [employer] Body weight 125.646 kg 125.646 kg [employer] Body height 175.3 cm 175.3 cm [employer] Respiratory rate 14 /min 14 /min [facility] [employer] Heart rate 96 /min 96 /min [employer] Diastolic blood 82 mm[Hg] 82 mm[Hg] [facility] pressure [facility] [employer] Systolic blood 107 mm[Hg] 107 mm[Hg] [facility] pressure [employer] Oxygen saturation 96 % 96 % [facility] in Arterial blood [facility] by [employer] [facility] Body mass index 41.50 kg/m2 41.50 kg/m2 [facility] (BMI) [Ratio] [employer] Body weight 127.461 kg 127.461 kg [employer] Body height 175.3 cm 175.3 cm [employer] Respiratory rate 12 /min 12 /min [facility] [employer] Body temperature 36.17 Katerine 36.17 Katerine [facility] [employer] Heart rate 94 /min 94 /min [facility] [employer] Diastolic blood 78 mm[Hg] 78 mm[Hg] [facility] pressure [employer] Systolic blood 122 mm[Hg] 122 mm[Hg] Chucky Chen s pressure [employer] [facility] Patient Treatment Plan of Care Planned Activity Planned Date Details Description Data Source (s) Amlodipine 10 MG Oral 03/14/2020 12:00:00 [facility] Tablet AM [facility] lamotrigine 25 MG Oral 11/14/2019 12:00:00 [facility] Tablet [facility] Rosuvastatin calcium 10 09/27/2019 12:00:00 [facility] MG Oral Tablet AM [employer] [employer] Labetalol hydrochloride 06/29/2019 12:00:00 [facility] 200 MG Oral Tablet [facility] Rosuvastatin calcium 10 06/29/2019 12:00:00 [facility] MG Oral Tablet [employer] Amlodipine 10 MG Oral 03/19/2019 12:00:00 [facility] Tablet [facility]
[2020-04-24 06:57] VITALS: BMI 37.7
[2020-04-24] MEDS ORDERED: ONDANSETRON 4 MG/2 ML VIAL ONE (07:58)
[2020-04-24] MEDS ORDERED: LIDOCAINE HCL/PF 2% SDV 5ML VIAL ONE (07:58)
[2020-04-24] MEDS ORDERED: SUCCINYLCHOLINE CHLORIDE 200 MG/10 ML SYRINGE ONE (07:59)
[2020-04-24] MEDS ORDERED: PROPOFOL 20 ML ONE (07:59)
[2020-04-24 08:56] VITALS: TEMP 98.2
[2020-04-24] MEDS ORDERED: ONDANSETRON 4 MG/2 ML VIAL IVPUSH PRN (09:18)
[2020-04-24 09:26] VITALS: BP 121/71; PULSE 72
== END 2020-04-24 09:28 | disposition home or self-care (01) ==
LOC: FECT 06:17
PROVIDERS: ATTEND Psychiatry & Neurology Psychiatry
PROC: GZB4ZZZ Other Electroconvulsive Therapy (ICD-10-PCS; principal; 2020-04-24 08:00)
DX: F31.9 Bipolar disorder, unspecified (principal)
CPT/HCPCS: 90870; 94760

== ENCOUNTER 2020-06-02 05:59 | Day surgery (SDC) | payer OTHER, BC ==
[2020-06-02 06:51] VITALS: BMI 38.2
[2020-06-02 08:49] VITALS: TEMP 98.1
[2020-06-02 08:58] VITALS: BP 123/96; PULSE 90
== END 2020-06-02 08:58 | disposition home or self-care (01) ==
LOC: FECT 05:59
PROVIDERS: ATTEND Psychiatry & Neurology Psychiatry
PROC: GZB4ZZZ Other Electroconvulsive Therapy (ICD-10-PCS; principal; 2020-06-02 07:30)
DX: F31.89 Other bipolar disorder (principal)
CPT/HCPCS: 90870; 94760

== ENCOUNTER 2020-06-19 06:49 | Day surgery (SDC) | payer OTHER ==
[2020-06-19 08:17] VITALS: BMI 38.9
[2020-06-19 11:49] VITALS: TEMP 98.2
[2020-06-19 11:54] VITALS: BP 151/94; PULSE 96
== END 2020-06-19 10:35 | disposition home or self-care (01) ==
LOC: FECT 06:49
PROVIDERS: ATTEND Psychiatry & Neurology Psychiatry
PROC: GZB4ZZZ Other Electroconvulsive Therapy (ICD-10-PCS; principal; 2020-06-19 07:00)
DX: F31.9 Bipolar disorder, unspecified (principal)
CPT/HCPCS: 90870; 94760

== ENCOUNTER 2020-06-26 06:14 | Day surgery (SDC) | payer OTHER, BC ==
[2020-06-26 07:19] VITALS: BMI 38.9
[2020-06-26 08:46] VITALS: TEMP 98.6
[2020-06-26 09:32] VITALS: BP 124/89; PULSE 94
== END 2020-06-26 09:45 | disposition home or self-care (01) ==
LOC: FECT 06:14
PROVIDERS: ATTEND Psychiatry & Neurology Psychiatry
PROC: GZB4ZZZ Other Electroconvulsive Therapy (ICD-10-PCS; principal; 2020-06-26 08:00)
DX: F31.9 Bipolar disorder, unspecified (principal)
CPT/HCPCS: 90870; 94760

== ENCOUNTER 2020-07-03 05:56 | Day surgery (SDC) | payer OTHER, BC ==
[2020-07-03 07:15] VITALS: BMI 39.9
[2020-07-03] MEDS ORDERED: KETAMINE HCL 500 MG/10 ML VIAL ONE (07:48)
[2020-07-03 09:00] VITALS: TEMP 98.5
[2020-07-03 10:09] VITALS: BP 135/85; PULSE 88
== END 2020-07-03 10:10 | disposition home or self-care (01) ==
LOC: FECT 05:56
PROVIDERS: ATTEND Psychiatry & Neurology Psychiatry
PROC: GZB4ZZZ Other Electroconvulsive Therapy (ICD-10-PCS; principal; 2020-07-03 07:30)
DX: F31.9 Bipolar disorder, unspecified (principal)
CPT/HCPCS: 90870; 94760

== ENCOUNTER 2020-07-10 06:13 | Day surgery (SDC) | payer OTHER, BC ==
[2020-07-04 11:29] VITALS: BMI 39.9
[2020-07-10] MEDS ORDERED: ACETAMINOPHEN 325 MG TABLET (FP) PO PRN (06:55)
[2020-07-10] MEDS ORDERED: PROMETHAZINE HCL 25 MG/1 ML VIAL IVPUSH PRN (06:55)
[2020-07-10] MEDS ORDERED: LACTATED RINGERS SOLUTION 1,000 ML IV SCH (07:00)
[2020-07-10] MEDS ORDERED: PROPOFOL 20 ML ONE (08:23)
[2020-07-10] MEDS ORDERED: SUCCINYLCHOLINE CHLORIDE 200 MG/10 ML SYRINGE ONE (08:23)
[2020-07-10] MEDS ORDERED: ONDANSETRON 4 MG/2 ML VIAL ONE (08:24)
[2020-07-10] MEDS ORDERED: LIDOCAINE HCL/PF 2% SDV 5ML VIAL ONE (08:24)
[2020-07-10 09:40] VITALS: PULSE 90; TEMP 98.7
[2020-07-10 09:56] VITALS: BP 134/99
== END 2020-07-10 09:57 | disposition home or self-care (01) ==
LOC: FASU 06:13
PROVIDERS: ATTEND Psychiatry & Neurology Psychiatry
PROC: GZB4ZZZ Other Electroconvulsive Therapy (ICD-10-PCS; principal; 2020-07-10 09:30)
DX: F31.32 Bipolar disorder, current episode depressed, moderate (principal)
CPT/HCPCS: 90870; 94760

== ENCOUNTER 2020-07-17 05:48 | Day surgery (SDC) | payer OTHER ==
[2020-07-17 07:24] VITALS: BMI 39.3
[2020-07-17 08:10] LABS: HEMATOCRIT 42.9 % (35.4-49); LYMPH % 13.6 % (8-40); MCH 31.3 pg (25.7-33.7); MEAN CELL VOLUME 89.2 fl (80-96); MEAN PLT VOLUME 8.1 fl (7.5-11.1); MONO % 6.2 % (3.8-10.2); NEUT % 77.2 % (42.8-82.8); PLATELET COUNT 218 K/MM3 (134-434); RBC 4.81 M/mm3 (4.00-5.60); RDW 12.9 % (11.9-15.9); WHITE BLOOD COUNT 7.7 K/mm3 (4.0-10.8)
[2020-07-17 08:15] LABS: ALBUMIN 4.4 g/dl (3.4-5.0); BILIRUBIN,TOTAL 1.2 mg/dl (0.2-1); CALCIUM 9.3 mg/dl (8.5-10); CREATININE 1.1 mg/dl (0.55-1.3); MAGNESIUM 2.1 mg/dL (1.8-2.4)
[2020-07-17 09:39] VITALS: TEMP 97.9
[2020-07-17 10:03] VITALS: BP 134/74; PULSE 89
== END 2020-07-17 10:00 | disposition home or self-care (01) ==
LOC: FECT 05:48
PROVIDERS: ATTEND Psychiatry & Neurology Psychiatry
PROC: GZB4ZZZ Other Electroconvulsive Therapy (ICD-10-PCS; principal; 2020-07-17 07:00)
DX: F32.9 Major depressive disorder, single episode, unspecified (principal)
CPT/HCPCS: 36415; 80053; 83735; 85025; 90870; 94760

== ENCOUNTER 2020-08-07 05:54 | Day surgery (SDC) | payer OTHER, BC ==
[2020-08-07 07:03] VITALS: BMI 38.5
[2020-08-07 08:18] VITALS: TEMP 98.8
[2020-08-07 09:16] VITALS: BP 124/79; PULSE 81
== END 2020-08-07 09:22 | disposition home or self-care (01) ==
LOC: FECT 05:54
PROVIDERS: ATTEND Psychiatry & Neurology Psychiatry
PROC: GZB4ZZZ Other Electroconvulsive Therapy (ICD-10-PCS; principal; 2020-08-07 07:30)
DX: F32.9 Major depressive disorder, single episode, unspecified (principal)
CPT/HCPCS: 90870; 94760

== ENCOUNTER 2020-08-21 06:04 | Day surgery (SDC) | payer OTHER, BC ==
[2020-08-21 07:23] VITALS: TEMP 98.9; BMI 38.5
[2020-08-21 10:13] VITALS: BP 115/68; PULSE 86
== END 2020-08-21 09:50 | disposition home or self-care (01) ==
LOC: FECT 06:04
PROVIDERS: ATTEND Psychiatry & Neurology Psychiatry
PROC: GZB4ZZZ Other Electroconvulsive Therapy (ICD-10-PCS; principal; 2020-08-21 08:30)
DX: F32.9 Major depressive disorder, single episode, unspecified (principal)
CPT/HCPCS: 90870; 94760

== ENCOUNTER 2020-09-04 05:49 | Day surgery (SDC) | payer OTHER, BC ==
[2020-09-04 07:10] VITALS: BMI 38.7
[2020-09-04 08:55] VITALS: TEMP 98.5
[2020-09-04 09:06] VITALS: BP 116/86; PULSE 87
== END 2020-09-04 09:15 | disposition home or self-care (01) ==
LOC: FECT 05:49
PROVIDERS: ATTEND Psychiatry & Neurology Psychiatry
PROC: GZB4ZZZ Other Electroconvulsive Therapy (ICD-10-PCS; principal; 2020-09-04 08:00)
DX: F31.60 Bipolar disorder, current episode mixed, unspecified (principal)
CPT/HCPCS: 90870; 94760

== ENCOUNTER 2020-09-18 07:48 | Day surgery (SDC) | payer OTHER ==
[2020-09-18 09:09] VITALS: BMI 38.7
[2020-09-18 10:49] VITALS: BP 123/85; PULSE 90; TEMP 98.7
== END 2020-09-18 11:10 | disposition home or self-care (01) ==
LOC: FECT 07:48
PROVIDERS: ATTEND Psychiatry & Neurology Psychiatry
PROC: GZB4ZZZ Other Electroconvulsive Therapy (ICD-10-PCS; principal; 2020-09-18 07:30)
DX: F32.9 Major depressive disorder, single episode, unspecified (principal)
CPT/HCPCS: 90870; 94760

== ENCOUNTER 2020-10-02 06:00 | Day surgery (SDC) | payer OTHER, BC ==
[2020-10-02 06:37] VITALS: BMI 40.1
[2020-10-02] MEDS ORDERED: SUCCINYLCHOLINE CHLORIDE 200 MG/10 ML SYRINGE ONE (07:20)
[2020-10-02] MEDS ORDERED: PROPOFOL 20 ML ONE (07:20)
[2020-10-02 07:55] VITALS: TEMP 98.9
[2020-10-02 09:01] VITALS: BP 122/75; PULSE 88
== END 2020-10-02 08:45 | disposition home or self-care (01) ==
LOC: FECT 06:00
PROVIDERS: ATTEND Psychiatry & Neurology Psychiatry
PROC: GZB4ZZZ Other Electroconvulsive Therapy (ICD-10-PCS; principal; 2020-10-02 07:30)
DX: F32.9 Major depressive disorder, single episode, unspecified (principal)
CPT/HCPCS: 90870; 94760

== ENCOUNTER 2020-10-16 06:06 | Day surgery (SDC) | payer OTHER, BC ==
[2020-10-16 07:19] VITALS: BMI 39.0
[2020-10-16 09:30] VITALS: TEMP 98.9
[2020-10-16 09:31] VITALS: BP 121/72; PULSE 91
== END 2020-10-16 09:32 | disposition home or self-care (01) ==
LOC: FASU 06:06 → FECT 06:06
PROVIDERS: ATTEND Psychiatry & Neurology Psychiatry
PROC: GZB4ZZZ Other Electroconvulsive Therapy (ICD-10-PCS; principal; 2020-10-16 08:30)
DX: F32.9 Major depressive disorder, single episode, unspecified (principal)
CPT/HCPCS: 90870; 94760

== ENCOUNTER 2020-10-30 07:09 | Day surgery (SDC) | payer OTHER, BC ==
[2020-10-30 07:40] VITALS: BMI 38.1
[2020-10-30 09:03] VITALS: TEMP 97.8
[2020-10-30 09:57] VITALS: BP 129/79; PULSE 89
== END 2020-10-30 09:55 | disposition home or self-care (01) ==
LOC: FECT 07:09
PROVIDERS: ATTEND Psychiatry & Neurology Psychiatry
PROC: GZB4ZZZ Other Electroconvulsive Therapy (ICD-10-PCS; principal; 2020-10-30 10:00)
DX: F32.9 Major depressive disorder, single episode, unspecified (principal)
CPT/HCPCS: 90870; 94760

== ENCOUNTER 2020-11-13 05:53 | Day surgery (SDC) | payer OTHER, BC ==
[2020-11-13 06:56] VITALS: BMI 38.2
[2020-11-13] MEDS ORDERED: SUCCINYLCHOLINE CHLORIDE 200 MG/10 ML SYRINGE ONE (07:58)
[2020-11-13] MEDS ORDERED: PROPOFOL 20 ML ONE (08:13)
[2020-11-13 08:31] VITALS: TEMP 98.7
[2020-11-13 09:14] VITALS: BP 115/91; PULSE 88
== END 2020-11-13 09:15 | disposition home or self-care (01) ==
LOC: FECT 05:53
PROVIDERS: ATTEND Psychiatry & Neurology Psychiatry
PROC: GZB4ZZZ Other Electroconvulsive Therapy (ICD-10-PCS; principal; 2020-11-13 07:30)
DX: F32.9 Major depressive disorder, single episode, unspecified (principal)
CPT/HCPCS: 90870; 94760

== ENCOUNTER 2020-11-27 05:56 | Day surgery (SDC) | payer OTHER ==
[2020-11-27 06:54] VITALS: BMI 38.4
[2020-11-27 08:29] VITALS: TEMP 99.1
[2020-11-27 09:18] VITALS: BP 121/76; PULSE 83
== END 2020-11-27 09:20 | disposition home or self-care (01) ==
LOC: FECT 05:56
PROVIDERS: ATTEND Psychiatry & Neurology Psychiatry
PROC: GZB4ZZZ Other Electroconvulsive Therapy (ICD-10-PCS; principal; 2020-11-27 09:00)
DX: F31.9 Bipolar disorder, unspecified (principal)
CPT/HCPCS: 90870; 94760

== ENCOUNTER 2020-12-18 05:56 | Day surgery (SDC) | payer OTHER, BC ==
[2020-12-18 07:41] VITALS: BMI 37.5
[2020-12-18 10:27] VITALS: TEMP 98.9
[2020-12-18 10:47] VITALS: BP 128/69; PULSE 85
== END 2020-12-18 10:45 | disposition home or self-care (01) ==
LOC: FECT 05:56
PROVIDERS: ATTEND Psychiatry & Neurology Psychiatry
PROC: GZB4ZZZ Other Electroconvulsive Therapy (ICD-10-PCS; principal; 2020-12-18 07:30)
DX: F31.9 Bipolar disorder, unspecified (principal)
CPT/HCPCS: 90870; 94760

== ENCOUNTER 2021-01-01 08:04 | Day surgery (SDC) | payer OTHER, BC ==
[2021-01-01 08:57] VITALS: BMI 38.0
[2021-01-01 11:13] VITALS: TEMP 98
[2021-01-01 11:32] VITALS: BP 129/78; PULSE 89
== END 2021-01-01 11:30 | disposition home or self-care (01) ==
LOC: FECT 08:04
PROVIDERS: ATTEND Psychiatry & Neurology Psychiatry
PROC: GZB4ZZZ Other Electroconvulsive Therapy (ICD-10-PCS; principal; 2021-01-01 10:00)
DX: F31.62 Bipolar disorder, current episode mixed, moderate (principal)
CPT/HCPCS: 90870; 94760

== ENCOUNTER 2021-01-16 06:09 | Day surgery (SDC) | payer OTHER, BC ==
[2021-01-16 07:47] VITALS: BMI 38.9
[2021-01-16 09:54] VITALS: TEMP 97.5
[2021-01-16 10:05] VITALS: BP 116/77; PULSE 87
== END 2021-01-16 10:10 | disposition home or self-care (01) ==
LOC: FECT 06:09
PROVIDERS: ATTEND Psychiatry & Neurology Psychiatry
PROC: GZB4ZZZ Other Electroconvulsive Therapy (ICD-10-PCS; principal; 2021-01-16 07:30)
DX: F31.9 Bipolar disorder, unspecified (principal)
CPT/HCPCS: 90870; 94760

== ENCOUNTER 2021-01-29 06:05 | Day surgery (SDC) | payer OTHER, BC ==
[2021-01-29 06:39] VITALS: BMI 39.9
[2021-01-29 08:58] VITALS: TEMP 98
[2021-01-29 09:12] VITALS: BP 121/85; PULSE 89
== END 2021-01-29 09:15 | disposition home or self-care (01) ==
LOC: FECT 06:05
PROVIDERS: ATTEND Psychiatry & Neurology Psychiatry
PROC: GZB4ZZZ Other Electroconvulsive Therapy (ICD-10-PCS; principal; 2021-01-29 08:00)
DX: F31.9 Bipolar disorder, unspecified (principal)
CPT/HCPCS: 90870; 94760

== ENCOUNTER 2021-02-12 05:52 | Day surgery (SDC) | payer OTHER ==
[2021-02-12 07:29] VITALS: BMI 37.8
[2021-02-12 09:06] VITALS: TEMP 98.6
[2021-02-12 09:46] VITALS: BP 105/62; PULSE 102
== END 2021-02-12 09:35 | disposition home or self-care (01) ==
LOC: FECT 05:52
PROVIDERS: ATTEND Psychiatry & Neurology Psychiatry
PROC: GZB4ZZZ Other Electroconvulsive Therapy (ICD-10-PCS; principal; 2021-02-12 07:30)
DX: F31.9 Bipolar disorder, unspecified (principal)
CPT/HCPCS: 90870; 94760

== ENCOUNTER 2021-02-15 08:33 | Day surgery (SDC) | payer OTHER ==
[2021-02-15 09:25] VITALS: BMI 37.7
[2021-02-15 10:47] VITALS: TEMP 97.2
[2021-02-15 12:15] VITALS: BP 121/79; PULSE 86
== END 2021-02-15 12:30 | disposition home or self-care (01) ==
LOC: FECT 08:33
PROVIDERS: ATTEND Psychiatry & Neurology Psychiatry
PROC: GZB4ZZZ Other Electroconvulsive Therapy (ICD-10-PCS; principal; 2021-02-15 10:30)
DX: F31.9 Bipolar disorder, unspecified (principal)
CPT/HCPCS: 90870; 94760

== ENCOUNTER 2021-02-16 05:51 | Day surgery (SDC) | payer OTHER ==
[2021-02-16 06:49] VITALS: BMI 38.9
[2021-02-16] MEDS ORDERED: SUCCINYLCHOLINE CHLORIDE 200 MG/10 ML SYRINGE ONE (07:19)
[2021-02-16] MEDS ORDERED: PROPOFOL 20 ML ONE (07:19)
[2021-02-16 08:13] VITALS: PULSE 80
[2021-02-16 08:18] VITALS: BP 128/78; TEMP 98.2
== END 2021-02-16 08:55 | disposition home or self-care (01) ==
LOC: FECT 05:51
PROVIDERS: ATTEND Psychiatry & Neurology Psychiatry
PROC: GZB4ZZZ Other Electroconvulsive Therapy (ICD-10-PCS; principal; 2021-02-16 09:00)
DX: F31.9 Bipolar disorder, unspecified (principal)
CPT/HCPCS: 90870; 94760

== ENCOUNTER 2021-02-19 06:08 | Day surgery (SDC) | payer OTHER ==
[2021-02-19 06:53] VITALS: BMI 37.9
[2021-02-19] MEDS ORDERED: PROPOFOL 20 ML ONE (08:19)
[2021-02-19] MEDS ORDERED: LIDOCAINE HCL/PF 2% SDV 5ML VIAL ONE (08:20)
[2021-02-19] MEDS ORDERED: ONDANSETRON 4 MG/2 ML VIAL ONE (08:20)
[2021-02-19] MEDS ORDERED: SUCCINYLCHOLINE CHLORIDE 200 MG/10 ML SYRINGE ONE (08:20)
[2021-02-19 09:17] VITALS: TEMP 98.4
[2021-02-19 09:38] VITALS: BP 104/62; PULSE 87
== END 2021-02-19 09:50 | disposition home or self-care (01) ==
LOC: FECT 06:08
PROVIDERS: ATTEND Psychiatry & Neurology Psychiatry
PROC: GZB4ZZZ Other Electroconvulsive Therapy (ICD-10-PCS; principal; 2021-02-19 08:30)
DX: F31.9 Bipolar disorder, unspecified (principal)
CPT/HCPCS: 90870; 94760

== ENCOUNTER 2021-02-22 05:57 | Day surgery (SDC) | payer OTHER ==
[2021-02-22 07:06] VITALS: BMI 37.9
[2021-02-22 08:33] VITALS: TEMP 98.7
[2021-02-22 09:10] VITALS: BP 123/85; PULSE 86
== END 2021-02-22 09:15 | disposition home or self-care (01) ==
LOC: FECT 05:57
PROVIDERS: ATTEND Psychiatry & Neurology Psychiatry
PROC: GZB4ZZZ Other Electroconvulsive Therapy (ICD-10-PCS; principal; 2021-02-22 07:30)
DX: F31.9 Bipolar disorder, unspecified (principal)
CPT/HCPCS: 90870; 94760

== ENCOUNTER 2021-02-26 05:50 | Day surgery (SDC) | payer OTHER, BC ==
[2021-02-26 06:48] VITALS: BMI 37.9
[2021-02-26] MEDS ORDERED: PROPOFOL 20 ML ONE ×3 (06:53→07:12)
[2021-02-26] MEDS ORDERED: SUCCINYLCHOLINE CHLORIDE 200 MG/10 ML SYRINGE ONE ×2 (06:53→07:12)
[2021-02-26 08:14] VITALS: TEMP 97.8
[2021-02-26 08:25] VITALS: BP 118/77; PULSE 86
== END 2021-02-26 08:50 | disposition home or self-care (01) ==
LOC: FECT 05:50
PROVIDERS: ATTEND Psychiatry & Neurology Psychiatry
PROC: GZB4ZZZ Other Electroconvulsive Therapy (ICD-10-PCS; principal; 2021-02-26 07:30)
DX: F31.9 Bipolar disorder, unspecified (principal)
CPT/HCPCS: 90870; 94760

== ENCOUNTER 2021-03-01 08:42 | Day surgery (SDC) | payer OTHER, BC ==
[2021-03-01 09:50] VITALS: BMI 38.1
[2021-03-01 12:00] VITALS: TEMP 97.8
[2021-03-01 12:04] VITALS: BP 126/74; PULSE 72
[2021-03-02 23:07] LABS: SARS-CoV-2 NAA Not Detected (Not Detected)
== END 2021-03-01 12:06 | disposition home or self-care (01) ==
LOC: FECT 08:42
PROVIDERS: ATTEND Psychiatry & Neurology Psychiatry
PROC: GZB4ZZZ Other Electroconvulsive Therapy (ICD-10-PCS; principal; 2021-03-01 10:30)
DX: F31.9 Bipolar disorder, unspecified (principal)
CPT/HCPCS: 90870; 94760; C9803; U0003; U0005

== ENCOUNTER 2021-03-05 05:52 | Day surgery (SDC) | payer OTHER ==
[2021-03-05 07:05] VITALS: BMI 38.0
[2021-03-05 09:21] VITALS: TEMP 98
[2021-03-05 09:38] VITALS: BP 124/75; PULSE 82
== END 2021-03-05 09:39 | disposition home or self-care (01) ==
LOC: FECT 05:52
PROVIDERS: ATTEND Psychiatry & Neurology Psychiatry
PROC: GZB4ZZZ Other Electroconvulsive Therapy (ICD-10-PCS; principal; 2021-03-05 08:30)
DX: F31.9 Bipolar disorder, unspecified (principal)
CPT/HCPCS: 90870; 94760; C9803; U0003; U0005

== ENCOUNTER 2021-03-08 06:04 | Day surgery (SDC) | payer OTHER, BC ==
[2021-03-08 07:34] VITALS: BMI 39.6
[2021-03-08 10:03] VITALS: TEMP 98
[2021-03-08 10:56] VITALS: BP 111/71; PULSE 85
== END 2021-03-08 10:35 | disposition home or self-care (01) ==
LOC: FECT 06:04
PROVIDERS: ATTEND Psychiatry & Neurology Psychiatry
PROC: GZB4ZZZ Other Electroconvulsive Therapy (ICD-10-PCS; principal; 2021-03-08 08:30)
DX: F31.9 Bipolar disorder, unspecified (principal)
CPT/HCPCS: 90870; 94760; C9803; U0003; U0005

== ENCOUNTER 2021-03-12 05:53 | Day surgery (SDC) | payer OTHER ==
[2021-03-12 06:33] VITALS: BMI 39.7
[2021-03-12 08:49] VITALS: TEMP 98
[2021-03-12 09:25] VITALS: BP 121/71; PULSE 81
== END 2021-03-12 09:26 | disposition home or self-care (01) ==
LOC: FECT 05:53
PROVIDERS: ATTEND Psychiatry & Neurology Psychiatry
PROC: GZB4ZZZ Other Electroconvulsive Therapy (ICD-10-PCS; principal; 2021-03-12 09:30)
DX: F31.62 Bipolar disorder, current episode mixed, moderate (principal)
CPT/HCPCS: 90870; 94760; C9803; U0003; U0005

== ENCOUNTER 2021-03-16 06:00 | Day surgery (SDC) | payer OTHER, BC ==
[2021-03-16 06:55] VITALS: BMI 39.8
[2021-03-16 08:42] VITALS: PULSE 88; TEMP 98
[2021-03-16 08:56] VITALS: BP 125/73
== END 2021-03-16 09:15 | disposition home or self-care (01) ==
LOC: FECT 06:00
PROVIDERS: ATTEND Psychiatry & Neurology Psychiatry
PROC: GZB4ZZZ Other Electroconvulsive Therapy (ICD-10-PCS; principal; 2021-03-16 09:00)
DX: F31.9 Bipolar disorder, unspecified (principal)
CPT/HCPCS: 90870; 94760; C9803; U0003; U0005

== ENCOUNTER 2021-03-20 06:35 | Day surgery (SDC) | payer OTHER, BC ==
[2021-03-20 07:34] VITALS: BMI 39.9
[2021-03-20 09:59] VITALS: TEMP 98.6
[2021-03-20 10:36] VITALS: BP 136/79; PULSE 86
== END 2021-03-20 10:37 | disposition home or self-care (01) ==
LOC: FECT 06:35
PROVIDERS: ATTEND Psychiatry & Neurology Psychiatry
PROC: GZB4ZZZ Other Electroconvulsive Therapy (ICD-10-PCS; principal; 2021-03-20 10:00)
DX: F31.9 Bipolar disorder, unspecified (principal)
CPT/HCPCS: 90870; 94760; C9803; U0003; U0005

== ENCOUNTER 2021-03-23 06:52 | Day surgery (SDC) | payer OTHER, BC ==
[2021-03-23 07:48] VITALS: BMI 40.0
[2021-03-23 09:57] VITALS: TEMP 98
[2021-03-23 10:14] VITALS: BP 121/72; PULSE 81
== END 2021-03-23 10:21 | disposition home or self-care (01) ==
LOC: FECT 06:52
PROVIDERS: ATTEND Psychiatry & Neurology Psychiatry
PROC: GZB4ZZZ Other Electroconvulsive Therapy (ICD-10-PCS; principal; 2021-03-23 09:00)
DX: F31.62 Bipolar disorder, current episode mixed, moderate (principal)
CPT/HCPCS: 90870; 94760; C9803; U0003; U0005

== ENCOUNTER 2021-03-26 05:57 | Day surgery (SDC) | payer OTHER, BC ==
[2021-03-26 06:34] VITALS: BMI 40.0
[2021-03-26] MEDS ORDERED: PROPOFOL 20 ML ONE (07:31)
[2021-03-26] MEDS ORDERED: SUCCINYLCHOLINE CHLORIDE 200 MG/10 ML SYRINGE ONE (07:31)
[2021-03-26] MEDS ORDERED: METOPROLOL TARTRATE 5 MG/5 ML VIAL ONE (07:40)
[2021-03-26 08:41] VITALS: TEMP 97.6
[2021-03-26] MEDS ORDERED: PROMETHAZINE HCL 25 MG/1 ML VIAL IVPUSH PRN (09:10)
[2021-03-26] MEDS ORDERED: ACETAMINOPHEN 500 MG TABLET (FP) PO PRN (09:10)
[2021-03-26] MEDS ORDERED: LACTATED RINGERS SOLUTION 1,000 ML IV SCH (09:15)
[2021-03-26 09:17] VITALS: BP 118/75; PULSE 81
== END 2021-03-26 09:21 | disposition home or self-care (01) ==
LOC: FECT 05:57
PROVIDERS: ATTEND Psychiatry & Neurology Psychiatry
PROC: GZB4ZZZ Other Electroconvulsive Therapy (ICD-10-PCS; principal; 2021-03-26 07:30)
DX: F31.9 Bipolar disorder, unspecified (principal)
CPT/HCPCS: 90870; 94760

== ENCOUNTER 2021-04-02 05:56 | Day surgery (SDC) | payer OTHER ==
[2021-04-02 06:23] VITALS: BMI 39.7
[2021-04-02] MEDS ORDERED: PROPOFOL 20 ML ONE (07:42)
[2021-04-02] MEDS ORDERED: SUCCINYLCHOLINE CHLORIDE 200 MG/10 ML SYRINGE ONE (07:43)
[2021-04-02 08:32] VITALS: TEMP 98.6
[2021-04-02 09:10] VITALS: BP 126/72; PULSE 82
== END 2021-04-02 09:12 | disposition home or self-care (01) ==
LOC: FECT 05:56
PROVIDERS: ATTEND Psychiatry & Neurology Psychiatry
PROC: GZB4ZZZ Other Electroconvulsive Therapy (ICD-10-PCS; principal; 2021-04-02 07:30)
DX: F32.9 Major depressive disorder, single episode, unspecified (principal)
CPT/HCPCS: 90870; 94760

== ENCOUNTER 2021-04-09 05:50 | Day surgery (SDC) | payer OTHER ==
[2021-04-09 06:38] VITALS: BMI 39.9
[2021-04-09 08:19] VITALS: TEMP 98.2
[2021-04-09 08:57] VITALS: BP 116/64; PULSE 91
[2021-04-09] MEDS ORDERED: PROPOFOL 20 ML ONE ×2 (09:19)
== END 2021-04-09 08:59 | disposition home or self-care (01) ==
LOC: FECT 05:50
PROVIDERS: ATTEND Psychiatry & Neurology Psychiatry
PROC: GZB4ZZZ Other Electroconvulsive Therapy (ICD-10-PCS; principal; 2021-04-09 07:30)
DX: F31.9 Bipolar disorder, unspecified (principal)
CPT/HCPCS: 90870; 94760

== ENCOUNTER 2021-04-16 05:52 | Day surgery (SDC) | payer OTHER, BC ==
[2021-04-12 11:41] VITALS: BMI 39.9
[2021-04-16] MEDS ORDERED: PROPOFOL 20 ML ONE ×2 (07:46)
[2021-04-16] MEDS ORDERED: SUCCINYLCHOLINE CHLORIDE 200 MG/10 ML SYRINGE ONE (07:47)
[2021-04-16 08:13] VITALS: TEMP 98.7
[2021-04-16 08:50] VITALS: BP 117/75; PULSE 88
== END 2021-04-16 09:05 | disposition home or self-care (01) ==
LOC: FECT 05:52
PROVIDERS: ATTEND Psychiatry & Neurology Psychiatry
PROC: GZB4ZZZ Other Electroconvulsive Therapy (ICD-10-PCS; principal; 2021-04-16 07:30)
DX: F31.9 Bipolar disorder, unspecified (principal)
CPT/HCPCS: 90870; 94760

== ENCOUNTER 2021-04-23 07:35 | Day surgery (SDC) | payer OTHER, BC ==
[2021-04-23 07:58] VITALS: BMI 39.9
[2021-04-23 09:54] VITALS: PULSE 80; TEMP 98.1
[2021-04-23 10:27] VITALS: BP 131/72
== END 2021-04-23 10:28 | disposition home or self-care (01) ==
LOC: FECT 07:35
PROVIDERS: ATTEND Psychiatry & Neurology Psychiatry
PROC: GZB4ZZZ Other Electroconvulsive Therapy (ICD-10-PCS; principal; 2021-04-23 09:30)
DX: F31.9 Bipolar disorder, unspecified (principal)
CPT/HCPCS: 90870; 94760

== ENCOUNTER 2021-04-30 05:44 | Day surgery (SDC) | payer OTHER, BC ==
[2021-04-30 06:51] VITALS: BMI 39.0
[2021-04-30 08:50] VITALS: TEMP 98.7
[2021-04-30 08:58] VITALS: BP 136/72; PULSE 88
== END 2021-04-30 09:05 | disposition home or self-care (01) ==
LOC: FECT 05:44
PROVIDERS: ATTEND Psychiatry & Neurology Psychiatry
PROC: GZB4ZZZ Other Electroconvulsive Therapy (ICD-10-PCS; principal; 2021-04-30 08:00)
DX: F31.9 Bipolar disorder, unspecified (principal)
CPT/HCPCS: 90870; 94760

== ENCOUNTER 2021-05-14 05:58 | Day surgery (SDC) | payer OTHER, BC ==
[2021-05-14 06:35] VITALS: BMI 39.4
[2021-05-14] MEDS ORDERED: LOCK ITEM NR ONE (06:39)
[2021-05-14 07:56] VITALS: TEMP 98.2
[2021-05-14 08:40] VITALS: BP 122/74; PULSE 76
== END 2021-05-14 08:42 | disposition home or self-care (01) ==
LOC: FECT 05:58
PROVIDERS: ATTEND Psychiatry & Neurology Psychiatry
PROC: GZB4ZZZ Other Electroconvulsive Therapy (ICD-10-PCS; principal; 2021-05-14 07:30)
DX: F32.9 Major depressive disorder, single episode, unspecified (principal)
CPT/HCPCS: 90870; 94760

== ENCOUNTER 2021-05-21 05:55 | Day surgery (SDC) | payer OTHER ==
[2021-05-21 06:58] VITALS: BMI 39.4
[2021-05-21 08:50] VITALS: TEMP 98.4
[2021-05-21 09:09] VITALS: BP 131/76; PULSE 76
== END 2021-05-21 09:11 | disposition home or self-care (01) ==
LOC: FECT 05:55
PROVIDERS: ATTEND Psychiatry & Neurology Psychiatry
PROC: GZB4ZZZ Other Electroconvulsive Therapy (ICD-10-PCS; principal; 2021-05-21 08:00)
DX: F31.9 Bipolar disorder, unspecified (principal)
CPT/HCPCS: 90870; 94760

== ENCOUNTER 2021-05-28 05:58 | Day surgery (SDC) | payer OTHER, BC ==
[2021-05-28 06:34] VITALS: BMI 38.7
[2021-05-28 08:25] VITALS: TEMP 97.9
[2021-05-28 09:08] VITALS: BP 114/72; PULSE 76
== END 2021-05-28 09:11 | disposition home or self-care (01) ==
LOC: FECT 05:58
PROVIDERS: ATTEND Psychiatry & Neurology Psychiatry
PROC: GZB4ZZZ Other Electroconvulsive Therapy (ICD-10-PCS; principal; 2021-05-28 10:00)
DX: F31.9 Bipolar disorder, unspecified (principal)
CPT/HCPCS: 90870; 94760

== ENCOUNTER 2021-06-04 05:55 | Day surgery (SDC) | payer OTHER ==
[2021-06-04 06:43] VITALS: BMI 38.9
[2021-06-04] MEDS ORDERED: LIDOCAINE HCL/PF 2% SDV 5ML VIAL ONE (07:37)
[2021-06-04 08:07] VITALS: TEMP 98.7
[2021-06-04 09:11] VITALS: BP 135/71; PULSE 64
[2021-06-04] MEDS ORDERED: SUCCINYLCHOLINE CHLORIDE 200 MG/10 ML SYRINGE ONE (10:26)
[2021-06-04] MEDS ORDERED: ONDANSETRON 4 MG/2 ML VIAL IVPUSH PRN (11:16)
[2021-06-04] MEDS ORDERED: LACTATED RINGERS SOLUTION 1,000 ML IV SCH (11:30)
== END 2021-06-04 09:05 | disposition home or self-care (01) ==
LOC: FECT 05:55
PROVIDERS: ATTEND Psychiatry & Neurology Psychiatry
PROC: GZB4ZZZ Other Electroconvulsive Therapy (ICD-10-PCS; principal; 2021-06-04 07:30)
DX: F31.89 Other bipolar disorder (principal)
CPT/HCPCS: 90870; 94760

== ENCOUNTER 2021-06-11 05:54 | Day surgery (SDC) | payer OTHER, BC ==
[2021-06-11 06:47] VITALS: BMI 38.8
[2021-06-11 07:49] VITALS: TEMP 98.2
[2021-06-11 08:37] VITALS: BP 122/80; PULSE 87
== END 2021-06-11 08:40 | disposition home or self-care (01) ==
LOC: FECT 05:54
PROVIDERS: ATTEND Psychiatry & Neurology Psychiatry
PROC: GZB4ZZZ Other Electroconvulsive Therapy (ICD-10-PCS; principal; 2021-06-11 07:30)
DX: F31.9 Bipolar disorder, unspecified (principal)
CPT/HCPCS: 90870; 94760

== ENCOUNTER 2021-06-18 05:49 | Day surgery (SDC) | payer OTHER, BC ==
[2021-06-18 06:47] VITALS: BMI 39.4
[2021-06-18] MEDS ORDERED: SUCCINYLCHOLINE CHLORIDE 200 MG/10 ML SYRINGE ONE ×2 (07:04)
[2021-06-18] MEDS ORDERED: KETAMINE HCL 500 MG/10 ML VIAL ONE (07:34)
[2021-06-18 08:47] VITALS: TEMP 98.1
[2021-06-18 09:09] VITALS: BP 133/87; PULSE 84
== END 2021-06-18 09:10 | disposition home or self-care (01) ==
LOC: FECT 05:49
PROVIDERS: ATTEND Psychiatry & Neurology Psychiatry
PROC: GZB4ZZZ Other Electroconvulsive Therapy (ICD-10-PCS; principal; 2021-06-18 07:30)
DX: F31.62 Bipolar disorder, current episode mixed, moderate (principal)
CPT/HCPCS: 90870; 94760

== ENCOUNTER → 2021-06-25 | Day surgery (SDC) | payer OTHER ==
[2021-06-25 10:00] VITALS: BMI 39.4
[2021-06-25 11:39] VITALS: TEMP 98.9
[2021-06-25 12:25] VITALS: BP 128/86; PULSE 100
== END | disposition home or self-care (01) ==
LOC: FOR 07:57 → FECT 07:57
PROVIDERS: ATTEND Psychiatry & Neurology Psychiatry
PROC: GZB4ZZZ Other Electroconvulsive Therapy (ICD-10-PCS; principal; 2021-06-25 10:30)
DX: F31.9 Bipolar disorder, unspecified (principal)
CPT/HCPCS: 90870; 94760

== ENCOUNTER 2021-07-09 06:08 | Day surgery (SDC) | payer OTHER ==
[2021-07-09 07:31] VITALS: BMI 38.1
[2021-07-09 09:21] VITALS: BP 122/79; PULSE 89; TEMP 98
== END 2021-07-09 09:45 | disposition home or self-care (01) ==
LOC: FECT 06:08
PROVIDERS: ATTEND Psychiatry & Neurology Psychiatry
PROC: GZB4ZZZ Other Electroconvulsive Therapy (ICD-10-PCS; principal; 2021-07-09 08:30)
DX: F31.62 Bipolar disorder, current episode mixed, moderate (principal)
CPT/HCPCS: 90870; 94760

== ENCOUNTER 2021-07-23 07:29 | Day surgery (SDC) | payer OTHER, BC ==
[2021-07-23 09:57] LABS: ALBUMIN 4.4 g/dl (3.4-5.0); BILIRUBIN,TOTAL 1.2 mg/dl (0.2-1); CALCIUM 9.8 mg/dl (8.5-10); CREATININE 1.1 mg/dl (0.55-1.3); MAGNESIUM 2.1 mg/dL (1.8-2.4); TOT PROT 7.5 g/dl (6.4-8.2)
[2021-07-23 10:24] LABS: HEMATOCRIT 43.3 % (35.4-49); HEMOGLOBIN 15.3 GM/dL (11.7-16.9); MCH 30.6 pg (25.7-33.7); MCHC 35.4 g/dl (32.0-35.9); MEAN CELL VOLUME 86.5 fl (80-96); MEAN PLT VOLUME 8.2 fl (7.5-11.1); PLATELET COUNT 217 10^3/uL (134-434); RBC 5.01 M/mm3 (4.00-5.60); RDW 13.2 % (11.9-15.9); WHITE BLOOD COUNT 8.8 K/mm3 (4.0-10.0)
[2021-07-23 11:55] VITALS: BMI 38.0
[2021-07-23 13:45] VITALS: TEMP 98.6
[2021-07-23 14:05] VITALS: BP 143/93; PULSE 98
== END 2021-07-23 14:15 | disposition home or self-care (01) ==
LOC: FECT 07:29
PROVIDERS: ATTEND Psychiatry & Neurology Psychiatry
PROC: GZB4ZZZ Other Electroconvulsive Therapy (ICD-10-PCS; principal; 2021-07-23 11:30)
DX: F31.62 Bipolar disorder, current episode mixed, moderate (principal)
CPT/HCPCS: 36415; 80053; 83735; 85027; 90870; 93005; 93010; 94760

== ENCOUNTER 2021-08-06 07:31 | Day surgery (SDC) | payer OTHER ==
[2021-08-06 09:32] VITALS: BMI 38.0
[2021-08-06 09:34] VITALS: TEMP 97.8
[2021-08-06 09:51] VITALS: BP 112/66; PULSE 88
== END 2021-08-06 10:00 | disposition home or self-care (01) ==
LOC: FECT 07:31
PROVIDERS: ATTEND Psychiatry & Neurology Psychiatry
PROC: GZB4ZZZ Other Electroconvulsive Therapy (ICD-10-PCS; principal; 2021-08-06 09:30)
DX: F31.62 Bipolar disorder, current episode mixed, moderate (principal)
CPT/HCPCS: 90870; 94760

== ENCOUNTER → 2021-08-20 | Day surgery (SDC) | payer OTHER, BC ==
[2021-08-20 06:45] VITALS: BMI 37.6
[2021-08-20 08:20] VITALS: TEMP 98.1
[2021-08-20 09:36] VITALS: BP 128/75; PULSE 82
== END | disposition home or self-care (01) ==
LOC: FECT 05:56
PROVIDERS: ATTEND Psychiatry & Neurology Psychiatry
PROC: GZB4ZZZ Other Electroconvulsive Therapy (ICD-10-PCS; principal; 2021-08-20 07:30)
DX: F32.9 Major depressive disorder, single episode, unspecified (principal)
CPT/HCPCS: 90870; 94760

== ENCOUNTER 2021-08-27 09:29 | Day surgery (SDC) | payer OTHER, BC ==
[2021-08-27 10:42] VITALS: BMI 37.2
[2021-08-27 12:46] VITALS: TEMP 97.1
[2021-08-27 13:46] VITALS: BP 120/73; PULSE 84
[2021-08-28 13:11] LABS: SARS-CoV-2 NAA Not Detected (Not Detected)
== END 2021-08-27 13:15 | disposition home or self-care (01) ==
LOC: FECT 09:29
PROVIDERS: ATTEND Psychiatry & Neurology Psychiatry
PROC: GZB4ZZZ Other Electroconvulsive Therapy (ICD-10-PCS; principal; 2021-08-27 11:00)
DX: F31.62 Bipolar disorder, current episode mixed, moderate (principal)
CPT/HCPCS: 90870; 94760; C9803; U0003; U0005

== ENCOUNTER 2021-08-30 06:01 | Day surgery (SDC) | payer OTHER, BC ==
[2021-08-30 06:49] VITALS: BMI 37.2
[2021-08-30 07:40] VITALS: TEMP 98.4
[2021-08-30 07:49] VITALS: PULSE 78
[2021-08-30 08:37] VITALS: BP 141/89
[2021-08-31 12:08] LABS: SARS-CoV-2 NAA Not Detected (Not Detected)
== END 2021-08-30 08:45 | disposition home or self-care (01) ==
LOC: FECT 06:01
PROVIDERS: ATTEND Psychiatry & Neurology Psychiatry
PROC: GZB4ZZZ Other Electroconvulsive Therapy (ICD-10-PCS; principal; 2021-08-30 07:30)
DX: F31.9 Bipolar disorder, unspecified (principal)
CPT/HCPCS: 90870; 94760; C9803; U0003; U0005

== ENCOUNTER 2021-09-04 05:50 | Day surgery (SDC) | payer OTHER, BC ==
[2021-09-04 06:54] VITALS: BMI 37.6
[2021-09-04 08:16] VITALS: TEMP 98.1
[2021-09-04 08:44] VITALS: BP 110/85; PULSE 77
[2021-09-05 10:08] LABS: SARS-CoV-2 NAA Not Detected (Not Detected)
== END 2021-09-04 08:45 | disposition home or self-care (01) ==
LOC: FECT 05:50
PROVIDERS: ATTEND Psychiatry & Neurology Psychiatry
PROC: GZB4ZZZ Other Electroconvulsive Therapy (ICD-10-PCS; principal; 2021-09-04 07:29)
DX: F31.62 Bipolar disorder, current episode mixed, moderate (principal)
CPT/HCPCS: 90870; 94760; C9803; U0003; U0005

== ENCOUNTER 2021-09-06 07:24 | Day surgery (SDC) | payer OTHER, BC ==
[2021-08-31 16:42] VITALS: BMI 37.2
[2021-09-06 10:23] VITALS: TEMP 97.7
[2021-09-06 11:15] VITALS: BP 104/60; PULSE 86
[2021-09-07 17:08] LABS: SARS-CoV-2 NAA Not Detected (Not Detected)
== END 2021-09-06 11:10 | disposition home or self-care (01) ==
LOC: FECT 07:24
PROVIDERS: ATTEND Psychiatry & Neurology Psychiatry
PROC: GZB4ZZZ Other Electroconvulsive Therapy (ICD-10-PCS; principal; 2021-09-06 09:35)
DX: F31.62 Bipolar disorder, current episode mixed, moderate (principal)
CPT/HCPCS: 90870; 94760; C9803-CS; U0003; U0005

== ENCOUNTER 2021-09-10 05:50 | Day surgery (SDC) | payer OTHER, BC ==
[2021-09-10 06:41] VITALS: BMI 37.3
[2021-09-10 08:49] VITALS: BP 112/71; PULSE 81; TEMP 98.1
[2021-09-11 12:09] LABS: SARS-CoV-2 NAA Not Detected (Not Detected)
== END 2021-09-10 08:52 | disposition home or self-care (01) ==
LOC: FECT 05:50
PROVIDERS: ATTEND Psychiatry & Neurology Psychiatry
PROC: GZB4ZZZ Other Electroconvulsive Therapy (ICD-10-PCS; principal; 2021-09-10 07:30)
DX: F31.62 Bipolar disorder, current episode mixed, moderate (principal)
CPT/HCPCS: 90870; 94760; C9803; U0003; U0005

== ENCOUNTER 2021-09-13 05:56 | Day surgery (SDC) | payer OTHER, BC ==
[2021-09-07 17:43] VITALS: BMI 37.2
[2021-09-13] MEDS ORDERED: SUCCINYLCHOLINE CHLORIDE 200 MG/10 ML SYRINGE ONE (07:24)
[2021-09-13] MEDS ORDERED: PROPOFOL 20 ML ONE ×2 (07:24)
[2021-09-13] MEDS ORDERED: LIDOCAINE HCL/PF 2% SDV 5ML VIAL ONE (07:24)
[2021-09-13 09:41] VITALS: BP 122/82; PULSE 85; TEMP 98.1
[2021-09-13] MEDS ORDERED: ONDANSETRON 4 MG/2 ML VIAL IVPUSH PRN (11:56)
[2021-09-13] MEDS ORDERED: LACTATED RINGERS SOLUTION 1,000 ML IV SCH (12:00)
[2021-09-14 13:08] LABS: SARS-CoV-2 NAA Not Detected (Not Detected)
== END 2021-09-13 09:00 | disposition home or self-care (01) ==
LOC: FECT 05:56
PROVIDERS: ATTEND Psychiatry & Neurology Psychiatry
PROC: GZB4ZZZ Other Electroconvulsive Therapy (ICD-10-PCS; principal; 2021-09-13 07:29)
DX: F31.9 Bipolar disorder, unspecified (principal)
CPT/HCPCS: 90870; 94760; C9803-CS; U0003; U0005

== ENCOUNTER 2021-09-17 05:55 | Day surgery (SDC) | payer OTHER, BC ==
[2021-09-17 06:35] VITALS: BMI 37.2
[2021-09-17 07:44] VITALS: TEMP 98.4
[2021-09-17] MEDS ORDERED: LACTATED RINGERS SOLUTION 1,000 ML IV SCH (07:45)
[2021-09-17 08:40] VITALS: BP 110/64; PULSE 87
[2021-09-18 13:08] LABS: SARS-CoV-2 NAA Not Detected (Not Detected)
== END 2021-09-17 08:42 | disposition home or self-care (01) ==
LOC: FECT 05:55
PROVIDERS: ATTEND Psychiatry & Neurology Psychiatry
PROC: GZB4ZZZ Other Electroconvulsive Therapy (ICD-10-PCS; principal; 2021-09-17 07:30)
DX: F31.62 Bipolar disorder, current episode mixed, moderate (principal)
CPT/HCPCS: 90870; 94760; C9803-CS; U0003; U0005

== ENCOUNTER 2021-09-20 06:01 | Day surgery (SDC) | payer OTHER, BC ==
[2021-09-18 17:11] VITALS: BMI 37.2
[2021-09-20 08:59] VITALS: BP 117/83; PULSE 84; TEMP 98
[2021-09-21 13:08] LABS: SARS-CoV-2 NAA Not Detected (Not Detected)
== END 2021-09-20 09:05 | disposition home or self-care (01) ==
LOC: FECT 06:01
PROVIDERS: ATTEND Psychiatry & Neurology Psychiatry
PROC: GZB4ZZZ Other Electroconvulsive Therapy (ICD-10-PCS; principal; 2021-09-20 08:00)
DX: F31.9 Bipolar disorder, unspecified (principal)
CPT/HCPCS: 90870; 94760; C9803; U0003; U0005

== ENCOUNTER 2021-09-24 05:47 | Day surgery (SDC) | payer OTHER, BC ==
[2021-09-24 06:32] VITALS: BMI 37.2
[2021-09-24] MEDS ORDERED: SUCCINYLCHOLINE CHLORIDE 200 MG/10 ML SYRINGE ONE (07:35)
[2021-09-24] MEDS ORDERED: PROPOFOL 20 ML ONE ×3 (07:35)
[2021-09-24 08:06] VITALS: TEMP 98.6
[2021-09-24 10:15] VITALS: BP 121/80; PULSE 88
[2021-09-25 14:09] LABS: SARS-CoV-2 NAA Not Detected (Not Detected)
== END 2021-09-24 09:00 | disposition home or self-care (01) ==
LOC: FECT 05:47
PROVIDERS: ATTEND Psychiatry & Neurology Psychiatry
PROC: GZB4ZZZ Other Electroconvulsive Therapy (ICD-10-PCS; principal; 2021-09-24 07:45)
DX: F31.62 Bipolar disorder, current episode mixed, moderate (principal)
CPT/HCPCS: 90870; 94760; C9803-CS; U0003; U0005

== ENCOUNTER 2021-09-27 05:53 | Day surgery (SDC) | payer OTHER, BC ==
[2021-09-27 06:41] VITALS: BMI 37.2
[2021-09-27 08:11] VITALS: TEMP 97.8
[2021-09-27 08:56] VITALS: BP 121/80; PULSE 89
== END 2021-09-27 09:00 | disposition home or self-care (01) ==
LOC: FECT 05:53
PROVIDERS: ATTEND Psychiatry & Neurology Psychiatry
PROC: GZB4ZZZ Other Electroconvulsive Therapy (ICD-10-PCS; principal; 2021-09-27 07:43)
DX: F31.9 Bipolar disorder, unspecified (principal)
CPT/HCPCS: 90870; 94760

== ENCOUNTER 2021-10-08 08:52 | Day surgery (SDC) | payer OTHER, BC ==
[2021-10-01 18:55] VITALS: BMI 37.2
[2021-10-08 12:04] VITALS: TEMP 98.2
[2021-10-08 12:22] VITALS: BP 122/89; PULSE 90
== END 2021-10-08 12:30 | disposition home or self-care (01) ==
LOC: FECT 08:52
PROVIDERS: ATTEND Psychiatry & Neurology Psychiatry
PROC: GZB4ZZZ Other Electroconvulsive Therapy (ICD-10-PCS; principal; 2021-10-08 11:05)
DX: F31.62 Bipolar disorder, current episode mixed, moderate (principal)
CPT/HCPCS: 90870; 94760

== ENCOUNTER 2021-10-16 06:00 | Day surgery (SDC) | payer OTHER, BC ==
[2021-10-16 06:38] VITALS: BMI 39.2
[2021-10-16] MEDS ORDERED: SUCCINYLCHOLINE CHLORIDE 200 MG/10 ML SYRINGE ONE (07:40)
[2021-10-16] MEDS ORDERED: LIDOCAINE HCL/PF 2% SDV 5ML VIAL ONE (08:12)
[2021-10-16 09:24] VITALS: TEMP 99.3
[2021-10-16 09:36] VITALS: BP 127/80; PULSE 84
[2021-10-16] MEDS ORDERED: ONDANSETRON 4 MG/2 ML VIAL IVPUSH PRN (11:30)
[2021-10-16] MEDS ORDERED: LACTATED RINGERS SOLUTION 1,000 ML IV SCH (11:30)
== END 2021-10-16 09:15 | disposition home or self-care (01) ==
LOC: FECT 06:00
PROVIDERS: ATTEND Psychiatry & Neurology Psychiatry
PROC: GZB4ZZZ Other Electroconvulsive Therapy (ICD-10-PCS; principal; 2021-10-16 07:47)
DX: F31.9 Bipolar disorder, unspecified (principal)
CPT/HCPCS: 90870; 94760

== ENCOUNTER 2021-10-22 05:59 | Day surgery (SDC) | payer OTHER, BC ==
[2021-10-22 06:47] VITALS: BMI 39.2
[2021-10-22] MEDS ORDERED: PROPOFOL 20 ML ONE (07:34)
[2021-10-22 08:31] VITALS: TEMP 98.4
[2021-10-22 09:23] VITALS: BP 121/82; PULSE 81
== END 2021-10-22 09:05 | disposition home or self-care (01) ==
LOC: FASU 05:59
PROVIDERS: ATTEND Psychiatry & Neurology Psychiatry
PROC: GZB4ZZZ Other Electroconvulsive Therapy (ICD-10-PCS; principal; 2021-10-22 07:38)
DX: F31.62 Bipolar disorder, current episode mixed, moderate (principal)
CPT/HCPCS: 90870; 94760

== ENCOUNTER 2021-10-29 05:52 | Day surgery (SDC) | payer OTHER, BC ==
[2021-10-23 14:31] VITALS: BMI 39.2
[2021-10-29 08:20] VITALS: TEMP 97.9
[2021-10-29 09:01] VITALS: BP 135/88; PULSE 89
== END 2021-10-29 09:03 | disposition home or self-care (01) ==
LOC: FECT 05:52
PROVIDERS: ATTEND Psychiatry & Neurology Psychiatry
PROC: GZB4ZZZ Other Electroconvulsive Therapy (ICD-10-PCS; principal; 2021-10-29 07:34)
DX: F31.62 Bipolar disorder, current episode mixed, moderate (principal)
CPT/HCPCS: 90870; 94760

== ENCOUNTER 2021-11-19 08:10 | Day surgery (SDC) | payer OTHER, BC ==
[2021-10-31 10:24] VITALS: BMI 39.2
[2021-11-19 10:55] VITALS: TEMP 97.3
[2021-11-19 11:06] VITALS: BP 124/76; PULSE 88
== END 2021-11-19 11:08 | disposition home or self-care (01) ==
LOC: FECT 08:10
PROVIDERS: ATTEND Psychiatry & Neurology Psychiatry
PROC: GZB4ZZZ Other Electroconvulsive Therapy (ICD-10-PCS; principal; 2021-11-19 10:04)
DX: F31.62 Bipolar disorder, current episode mixed, moderate (principal)
CPT/HCPCS: 90870; 94760

== ENCOUNTER 2021-11-26 05:55 | Day surgery (SDC) | payer OTHER, BC ==
[2021-11-26 08:49] VITALS: TEMP 97.8
[2021-11-26] MEDS ORDERED: PROMETHAZINE HCL 25 MG/1 ML VIAL IVPUSH PRN (09:29)
[2021-11-26] MEDS ORDERED: ACETAMINOPHEN 500 MG TABLET (FP) PO PRN (09:29)
[2021-11-26] MEDS ORDERED: LACTATED RINGERS SOLUTION 1,000 ML IV SCH (09:30)
[2021-11-26 09:32] VITALS: BP 118/61; PULSE 77
== END 2021-11-26 09:15 | disposition home or self-care (01) ==
LOC: FECT 05:55
PROVIDERS: ATTEND Psychiatry & Neurology Psychiatry
PROC: GZB4ZZZ Other Electroconvulsive Therapy (ICD-10-PCS; principal; 2021-11-26 08:03)
DX: F31.62 Bipolar disorder, current episode mixed, moderate (principal)
CPT/HCPCS: 90870; 94760

== ENCOUNTER 2021-12-04 05:50 | Day surgery (SDC) | payer OTHER, BC ==
[2021-12-04 06:34] VITALS: BMI 39.6
[2021-12-04 08:23] VITALS: TEMP 97.6
[2021-12-04 08:52] VITALS: BP 119/73; PULSE 82
== END 2021-12-04 08:54 | disposition home or self-care (01) ==
LOC: FECT 05:50
PROVIDERS: ATTEND Psychiatry & Neurology Psychiatry
PROC: GZB4ZZZ Other Electroconvulsive Therapy (ICD-10-PCS; principal; 2021-12-04 07:35)
DX: F31.9 Bipolar disorder, unspecified (principal)
CPT/HCPCS: 90870; 94760

== ENCOUNTER 2021-12-11 05:58 | Day surgery (SDC) | payer OTHER, BC ==
[2021-12-05 13:08] VITALS: BMI 39.6
[2021-12-11 08:08] VITALS: TEMP 97.8
[2021-12-11 08:57] VITALS: BP 124/72; PULSE 81
== END 2021-12-11 08:59 | disposition home or self-care (01) ==
LOC: FECT 05:58
PROVIDERS: ATTEND Psychiatry & Neurology Psychiatry
PROC: GZB4ZZZ Other Electroconvulsive Therapy (ICD-10-PCS; principal; 2021-12-11 07:41)
DX: F31.62 Bipolar disorder, current episode mixed, moderate (principal)
CPT/HCPCS: 90870; 94760

== ENCOUNTER 2021-12-18 06:00 | Day surgery (SDC) | payer OTHER, BC ==
[2021-12-14 15:46] VITALS: BMI 39.6
[2021-12-18] MEDS ORDERED: SUCCINYLCHOLINE CHLORIDE 200 MG/10 ML SYRINGE ONE (07:27)
[2021-12-18] MEDS ORDERED: PROPOFOL 20 ML ONE (07:27)
[2021-12-18 08:27] VITALS: TEMP 98.2
[2021-12-18 08:48] VITALS: BP 120/78; PULSE 89
== END 2021-12-18 09:01 | disposition home or self-care (01) ==
LOC: FECT 06:00
PROVIDERS: ATTEND Psychiatry & Neurology Psychiatry
PROC: GZB4ZZZ Other Electroconvulsive Therapy (ICD-10-PCS; principal; 2021-12-18 07:33)
DX: F31.9 Bipolar disorder, unspecified (principal)
CPT/HCPCS: 90870; 94760